=== PATIENT | male | born 1990 | race Caucasian/White ===

== ENCOUNTER 2018-03-26 18:12 | Inpatient (IN) | payer BC ==
[2018-03-26] MEDS ORDERED: ALTEPLASE (CATHFLO) 2 MG INJ CATHETER (19:00)
[2018-03-26] MEDS ORDERED: INSULIN REGULAR 10 ML INJ IV (19:02)
[2018-03-26] MEDS: ONDANSETRON 4 MG INJ IV ×2 (19:07→21:57)
[2018-03-26] MEDS: SODIUM CHLORIDE 0.9% 1L BAG IV* (19:08)
[2018-03-26] MEDS: HYDROmorphONE 1 MG/5 ML IV SYRINGE IV ×2 (19:08→21:57)
[2018-03-26] MEDS: PIPER-TAZO 3.375 GM IV (PMX) 100 ML IVPB (19:08)
[2018-03-26] MEDS: DIPHENHYDRAMINE 50 MG INJ IV (19:23)
[2018-03-26 19:25] LABS: ADD MAN DIFF? NO
[2018-03-26 19:26] LABS: WHITE BLOOD COUNT 13.1 10^3/ul (4.8-10.8)
[2018-03-26 19:26] LABS: BASOPHIL # 0.1 10^3/ul (0.0-0.1); BASOPHILS % 0.5 % (0.0-2.0); EOSINOPHILS % 0.2 % (0.0-7.0); HEMATOCRIT 40.9 % (42.0-52.0); HEMOGLOBIN 14.3 g/dl (14.0-18.0); LYMPHOCYTES # 2.7 10^3/ul (0.8-2.9); LYMPHOCYTES % 20.8 % (15.0-51.0); MEAN CORPUSCULAR HEMOGLOBIN 31.2 pg (29.0-33.0); MEAN CORPUSCULAR VOLUME 89.1 fl (82.0-101.0); MEAN PLATELET VOLUME 10.1 fl (7.4-10.4); MONOCYTE # 1.3 10^3/ul (0.3-0.9); MONOCYTES % 9.9 % (0.0-11.0); NEUTROPHILS % 68.4 % (39.0-77.0); PLATELET COUNT 473 10^3/UL (140-415); RED BLOOD COUNT 4.59 10^6/ul (4.70-6.10); RED CELL DISTRIBUTION WIDTH 15.6 % (11.5-14.5)
[2018-03-26 19:38] LABS: ALANINE AMINOTRANSFERASE 24 IU/L (13-69); ALBUMIN 5.3 g/dl (3.3-4.9); ALKALINE PHOSPHATASE 445 IU/L (42-121); AMYLASE 215 U/L (11-123); ASPARTATE AMINO TRANSFERASE 53 IU/L (15-46); BILIRUBIN,INDIRECT 0.1 mg/dl (0-1.1); BILIRUBIN,TOTAL 0.1 mg/dl (0.2-1.3); BLOOD UREA NITROGEN 95 mg/dl (7-20); CALCIUM 9.9 mg/dl (8.4-10.2); CHLORIDE 69 mmol/L (97-110); CREATININE 3.42 mg/dl (0.61-1.24); GLUCOSE 119 mg/dl (70-220); LIPASE 99 U/L (23-300); POTASSIUM 3.1 mmol/L (3.5-5.1); SODIUM 145 mmol/L (135-144)
[2018-03-26 19:44] LABS: INR 0.93; PROTIME 12.5 Sec (11.9-14.9)
[2018-03-26 19:49] LABS: ANION GAP 33 (8-16)
[2018-03-26 19:50] LABS: TOTAL PROTEIN 11.9 g/dl (6.1-8.1)
[2018-03-26 19:51] LABS: LACTIC ACID 2.6 mmol/L (0.5-2.0)
[2018-03-26 19:51] LABS: CARBON DIOXIDE 46 mmol/L (21-31)
[2018-03-26 19:53] LABS: TROPONIN-I < 0.012 ng/ml (0.000-0.120)
[2018-03-26] MEDS: SOD CHLORIDE 0.9% 1,000 ML IV ×2 (21:05→23:26)
[2018-03-26 22:10] LABS: LACTIC ACID 1.4 mmol/L (0.5-2.0)
[2018-03-26 22:10] LABS: ALANINE AMINOTRANSFERASE 16 IU/L (13-69); ALBUMIN 3.8 g/dl (3.3-4.9); ALBUMIN/GLOBULIN RATIO 0.95; ALKALINE PHOSPHATASE 315 IU/L (42-121); ANION GAP 20 (8-16); ASPARTATE AMINO TRANSFERASE 32 IU/L (15-46); BILIRUBIN,INDIRECT 0.1 mg/dl (0-1.1); BILIRUBIN,TOTAL 0.1 mg/dl (0.2-1.3); BLOOD UREA NITROGEN 77 mg/dl (7-20); CALCIUM 7.6 mg/dl (8.4-10.2); CARBON DIOXIDE 39 mmol/L (21-31); CHLORIDE 89 mmol/L (97-110); CREATININE 2.73 mg/dl (0.61-1.24); GLUCOSE 76 mg/dl (70-220); SODIUM 145 mmol/L (135-144); TOTAL PROTEIN 7.8 g/dl (6.1-8.1)
[2018-03-26 22:19] LABS: POTASSIUM 2.7 mmol/L (3.5-5.1)
[2018-03-26] MEDS ORDERED: POTASSIUM CHLORIDE (SR) 20 MEQ TAB PO (22:19)
[2018-03-26] MEDS: POTASSIUM PHOSPHATE 20 MEQ in SOD CHLORIDE 0.9% 250 ML IVPB (23:50)
[2018-03-27 00:20] LABS: ADD UMIC YES; UR ASCORBIC ACID NEGATIVE (NEGATIVE); UR BILIRUBIN (Dip) NEGATIVE (NEGATIVE); UR BLOOD (Dip) 2+ mg/dL (NEGATIVE); UR CLARITY SLIGHTLY CLOUDY (CLEAR); UR COLOR YELLOW (YELLOW); UR GLUCOSE (Dip) NEGATIVE (NEGATIVE); UR HYALINE CAST FEW /HPF (NONE SEEN); UR KETONES (Dip) NEGATIVE (NEGATIVE); UR LEUKOCYTE ESTERASE (Dip) NEGATIVE Leu/ul (NEGATIVE); UR MUCUS FEW /HPF (NONE SEEN); UR NITRITE (Dip) NEGATIVE (NEGATIVE); UR RBC 4 /HPF (0-5); UR SPECIFIC GRAVITY (Dip) 1.019 (1.003-1.030); UR TOTAL PROTEIN (Dip) NEGATIVE (NEGATIVE); UR UROBILINOGEN (Dip) NEGATIVE (NEGATIVE); UR WBC 2 /HPF (0-5)
[2018-03-27] MEDS ORDERED: NACL 0.9% 3 ML SYG IV (00:30)
[2018-03-27] MEDS ORDERED: ACETAMINOPHEN 325 MG TAB PO (00:30)
[2018-03-27] MEDS ORDERED: ALBUTEROL/IPRATROPIUM (NEB) 3 ML AMP HHN (00:30)
[2018-03-27] MEDS: SOD CHLORIDE 0.9% 500 ML IV (00:30)
[2018-03-27 00:54] LABS: LACTIC ACID 1.1 mmol/L (0.5-2.0)
[2018-03-27] MEDS: DIPHENHYDRAMINE 50 MG INJ IV ×5 (03:12→23:19)
[2018-03-27] MEDS: HYDROmorphONE 1 MG/5 ML IV SYRINGE IV (03:12)
[2018-03-27] MEDS: DEXTROSE 5%-0.45% NACL 1,000 ML IV ×2 (03:43→14:31)
[2018-03-27 04:09] LABS: ANION GAP 13 (8-16); BLOOD UREA NITROGEN 62 mg/dl (7-20); CALCIUM 7.2 mg/dl (8.4-10.2); CARBON DIOXIDE 38 mmol/L (21-31); CHLORIDE 101 mmol/L (97-110); CREATININE 2.04 mg/dl (0.61-1.24); GLUCOSE 90 mg/dl (70-220); POTASSIUM 3.1 mmol/L (3.5-5.1); SODIUM 149 mmol/L (135-144)
[2018-03-27 06:00] LABS: ABNORMAL IP MESSAGE 1; ADD MAN DIFF? NO; BASOPHILS % 0.2 % (0.0-2.0); EOSINOPHILS % 0.1 % (0.0-7.0); HEMATOCRIT 25.9 % (42.0-52.0); HEMOGLOBIN 8.7 g/dl (14.0-18.0); LYMPHOCYTES # 0.4 10^3/ul (0.8-2.9); LYMPHOCYTES % 2.4 % (15.0-51.0); MEAN CORPUSCULAR HEMOGLOBIN 31.8 pg (29.0-33.0); MEAN CORPUSCULAR HGB CONC 33.6 g/dl (32.0-37.0); MEAN CORPUSCULAR VOLUME 94.5 fl (82.0-101.0); MEAN PLATELET VOLUME 10.4 fl (7.4-10.4); MONOCYTE # 1.1 10^3/ul (0.3-0.9); NEUTROPHIL # 14.5 10^3/ul (1.6-7.5); NEUTROPHILS % 89.9 % (39.0-77.0); PLATELET COUNT 294 10^3/UL (140-415); POSITIVE DIFF @See below; RED BLOOD COUNT 2.74 10^6/ul (4.70-6.10); RED CELL DISTRIBUTION WIDTH 16.3 % (11.5-14.5)
[2018-03-27 06:00] LABS: WHITE BLOOD COUNT 16.1 10^3/ul (4.8-10.8)
[2018-03-27 06:34] LABS: ALANINE AMINOTRANSFERASE 23 IU/L (13-69); ALBUMIN 2.9 g/dl (3.3-4.9); ALBUMIN/GLOBULIN RATIO 0.96; ALKALINE PHOSPHATASE 226 IU/L (42-121); ANION GAP 14 (8-16); ASPARTATE AMINO TRANSFERASE 29 IU/L (15-46); BILIRUBIN,INDIRECT 0.1 mg/dl (0-1.1); BILIRUBIN,TOTAL 0.1 mg/dl (0.2-1.3); BLOOD UREA NITROGEN 57 mg/dl (7-20); CALCIUM 6.9 mg/dl (8.4-10.2); CARBON DIOXIDE 33 mmol/L (21-31); CHLORIDE 98 mmol/L (97-110); SODIUM 142 mmol/L (135-144); TOTAL PROTEIN 5.9 g/dl (6.1-8.1)
[2018-03-27 06:59] LABS: POTASSIUM 2.8 mmol/L (3.5-5.1)
[2018-03-27 07:01] LABS: GLUCOSE 420 mg/dl (70-220)
[2018-03-27] MEDS: HYDROmorphONE 0.5 MG/0.5 ML SYG IV ×6 (07:20→23:19)
[2018-03-27 08:18] LABS: GLUCOSE 420 mg/dl (70-220)
[2018-03-27] MEDS ORDERED: TPN 1,000 ML IV (08:44)
[2018-03-27] MEDS: POTASSIUM CHLORIDE 100 ML IVPB ×3 (09:00→12:25)
[2018-03-27] MEDS: ACCU-CHEK XX ×4 (09:00→21:33)
[2018-03-27] MEDS: FAMOTIDINE 20 MG INJ IV (09:21)
[2018-03-27] MEDS: CEFTRIAXONE 1 GM/50 ML (PMX) 50 ML IVPB (09:21)
[2018-03-27] MEDS: HEPARIN 5,000 UNIT/0.5 ML VIAL SC ×2 (09:48→21:00)
[2018-03-27 10:19] LABS: ALANINE AMINOTRANSFERASE 13 IU/L (13-69); ALBUMIN 3.5 g/dl (3.3-4.9); ALBUMIN/GLOBULIN RATIO 0.97; ALKALINE PHOSPHATASE 249 IU/L (42-121); ANION GAP 18 (8-16); ASPARTATE AMINO TRANSFERASE 35 IU/L (15-46); BILIRUBIN,INDIRECT 0.3 mg/dl (0-1.1); BILIRUBIN,TOTAL 0.3 mg/dl (0.2-1.3); BLOOD UREA NITROGEN 60 mg/dl (7-20); CALCIUM 8.1 mg/dl (8.4-10.2); CARBON DIOXIDE 31 mmol/L (21-31); CHLORIDE 100 mmol/L (97-110); CREATININE 1.71 mg/dl (0.61-1.24); GLUCOSE 101 mg/dl (70-220); MAGNESIUM 2.1 mg/dl (1.7-2.5); PHOSPHORUS 5.1 mg/dl (2.5-4.9); POTASSIUM 3.6 mmol/L (3.5-5.1); SODIUM 145 mmol/L (135-144); TOTAL PROTEIN 7.1 g/dl (6.1-8.1); TRIGLYCERIDES 172 mg/dl (0-149)
[2018-03-27 10:26] LABS: PREALBUMIN 31.5 mg/dl (17.6-36.0)
[2018-03-27 17:18] LABS: ADD UMIC YES; UR ASCORBIC ACID 20 mg/dL (NEGATIVE); UR BILIRUBIN (Dip) NEGATIVE (NEGATIVE); UR BLOOD (Dip) 1+ mg/dL (NEGATIVE); UR CLARITY CLEAR (CLEAR); UR COLOR YELLOW (YELLOW); UR GLUCOSE (Dip) NEGATIVE (NEGATIVE); UR KETONES (Dip) NEGATIVE (NEGATIVE); UR LEUKOCYTE ESTERASE (Dip) TRACE Leu/ul (NEGATIVE); UR NITRITE (Dip) NEGATIVE (NEGATIVE); UR RBC 7 /HPF (0-5); UR SPECIFIC GRAVITY (Dip) 1.019 (1.003-1.030); UR TOTAL PROTEIN (Dip) NEGATIVE (NEGATIVE); UR UROBILINOGEN (Dip) NEGATIVE (NEGATIVE); UR WBC 13 /HPF (0-5)
[2018-03-27] MEDS: TPN 1,000 ML IV (17:33)
[2018-03-27 17:35] LABS: SODIUM,URINE RANDOM 64 mmol/L (30-90)
[2018-03-27 17:35] LABS: POTASSIUM,URINE RANDOM 47.7 mmol/L (25-125)
[2018-03-27 17:39] LABS: CREATININE,URINE RANDOM 114.36 mg/dl (20-370)
[2018-03-28] MEDS: ACCU-CHEK XX ×5 (01:00→18:00)
[2018-03-28] MEDS: DIPHENHYDRAMINE 50 MG INJ IV ×7 (02:23→21:14)
[2018-03-28] MEDS: HYDROmorphONE 0.5 MG/0.5 ML SYG IV ×7 (02:32→21:14)
[2018-03-28] MEDS: FLUCONAZOLE 400 MG/NS (PMX) 200 ML IVPB (02:45)
[2018-03-28 06:00] LABS: ADD MAN DIFF? NO
[2018-03-28 06:07] LABS: WHITE BLOOD COUNT 15.1 10^3/ul (4.8-10.8)
[2018-03-28 06:08] LABS: BASOPHILS % 0.3 % (0.0-2.0); EOSINOPHILS # 0.2 10^3/ul (0.0-0.5); EOSINOPHILS % 1.5 % (0.0-7.0); HEMATOCRIT 25.2 % (42.0-52.0); HEMOGLOBIN 8.4 g/dl (14.0-18.0); LYMPHOCYTES # 1.5 10^3/ul (0.8-2.9); LYMPHOCYTES % 9.7 % (15.0-51.0); MEAN CORPUSCULAR HEMOGLOBIN 31.7 pg (29.0-33.0); MEAN CORPUSCULAR HGB CONC 33.3 g/dl (32.0-37.0); MEAN CORPUSCULAR VOLUME 95.1 fl (82.0-101.0); MEAN PLATELET VOLUME 10.4 fl (7.4-10.4); MONOCYTE # 1.1 10^3/ul (0.3-0.9); MONOCYTES % 7.2 % (0.0-11.0); NEUTROPHIL # 12.2 10^3/ul (1.6-7.5); NEUTROPHILS % 80.9 % (39.0-77.0); PLATELET COUNT 272 10^3/UL (140-415); RED BLOOD COUNT 2.65 10^6/ul (4.70-6.10); RED CELL DISTRIBUTION WIDTH 16.6 % (11.5-14.5)
[2018-03-28 07:52] LABS: ANION GAP 12 (8-16); BLOOD UREA NITROGEN 39 mg/dl (7-20); CALCIUM 8.5 mg/dl (8.4-10.2); CARBON DIOXIDE 34 mmol/L (21-31); CHLORIDE 99 mmol/L (97-110); CREATININE 1.23 mg/dl (0.61-1.24); GLUCOSE 84 mg/dl (70-220); MAGNESIUM 2.2 mg/dl (1.7-2.5); PHOSPHORUS 2.6 mg/dl (2.5-4.9); POTASSIUM 3.1 mmol/L (3.5-5.1); SODIUM 142 mmol/L (135-144)
[2018-03-28] MEDS: FAMOTIDINE 20 MG INJ IV (08:44)
[2018-03-28] MEDS: CEFTRIAXONE 1 GM/50 ML (PMX) 50 ML IVPB (08:44)
[2018-03-28] MEDS: HEPARIN 5,000 UNIT/0.5 ML VIAL SC ×2 (08:45→21:00)
[2018-03-28] MEDS: FAT EMULSION 20% 250 ML IV (11:42)
[2018-03-28] MEDS: CASPOFUNGIN 70 MG in SOD CHLORIDE 0.9% 250 ML IVPB (11:44)
[2018-03-28] MEDS: TPN 1,000 ML IV (11:56)
[2018-03-28] MEDS: POTASSIUM CHLORIDE 100 ML IVPB ×2 (12:59→18:15)
[2018-03-28] MEDS: DEXTROSE 10% 1,000 ML IV (16:00)
[2018-03-28] MEDS: DEXTROSE 10% 250 ML IV ×2 (22:10→22:59)
[2018-03-29] MEDS: HYDROmorphONE 0.5 MG/0.5 ML SYG IV ×7 (00:24→23:43)
[2018-03-29] MEDS: ACCU-CHEK XX ×4 (00:24→17:34)
[2018-03-29] MEDS: DIPHENHYDRAMINE 50 MG INJ IV ×6 (00:24→23:43)
[2018-03-29] MEDS: DEXTROSE 10% 250 ML IV ×4 (03:15→10:40)
[2018-03-29 05:49] LABS: ADD MAN DIFF? NO
[2018-03-29 05:55] LABS: WHITE BLOOD COUNT 9.3 10^3/ul (4.8-10.8)
[2018-03-29 05:55] LABS: BASOPHILS % 0.4 % (0.0-2.0); EOSINOPHILS # 0.3 10^3/ul (0.0-0.5); EOSINOPHILS % 3.5 % (0.0-7.0); HEMATOCRIT 32.2 % (42.0-52.0); HEMOGLOBIN 10.8 g/dl (14.0-18.0); LYMPHOCYTES # 1.4 10^3/ul (0.8-2.9); LYMPHOCYTES % 15.1 % (15.0-51.0); MEAN CORPUSCULAR HEMOGLOBIN 31.6 pg (29.0-33.0); MEAN CORPUSCULAR HGB CONC 33.5 g/dl (32.0-37.0); MEAN CORPUSCULAR VOLUME 94.2 fl (82.0-101.0); MEAN PLATELET VOLUME 10.5 fl (7.4-10.4); MONOCYTES % 11.2 % (0.0-11.0); NEUTROPHIL # 6.4 10^3/ul (1.6-7.5); NEUTROPHILS % 69.5 % (39.0-77.0); PLATELET COUNT 313 10^3/UL (140-415); RED BLOOD COUNT 3.42 10^6/ul (4.70-6.10); RED CELL DISTRIBUTION WIDTH 16.1 % (11.5-14.5)
[2018-03-29 06:14] LABS: ALANINE AMINOTRANSFERASE 21 IU/L (13-69); ALBUMIN 4.1 g/dl (3.3-4.9); ALBUMIN/GLOBULIN RATIO 0.91; ALKALINE PHOSPHATASE 292 IU/L (42-121); ASPARTATE AMINO TRANSFERASE 37 IU/L (15-46); BILIRUBIN,INDIRECT 0.1 mg/dl (0-1.1); BILIRUBIN,TOTAL 0.1 mg/dl (0.2-1.3); BLOOD UREA NITROGEN 35 mg/dl (7-20); CALCIUM 9.8 mg/dl (8.4-10.2); CHLORIDE 95 mmol/L (97-110); CREATININE 1.39 mg/dl (0.61-1.24); GLUCOSE 111 mg/dl (70-220); SODIUM 147 mmol/L (135-144); TOTAL PROTEIN 8.6 g/dl (6.1-8.1)
[2018-03-29 06:17] LABS: ANION GAP 17 (8-16); BLOOD UREA NITROGEN 36 mg/dl (7-20); CALCIUM 9.7 mg/dl (8.4-10.2); CARBON DIOXIDE 38 mmol/L (21-31); CHLORIDE 95 mmol/L (97-110); CREATININE 1.32 mg/dl (0.61-1.24); GLUCOSE 111 mg/dl (70-220); MAGNESIUM 2.1 mg/dl (1.7-2.5); PHOSPHORUS 3.1 mg/dl (2.5-4.9); POTASSIUM 3.1 mmol/L (3.5-5.1); SODIUM 147 mmol/L (135-144)
[2018-03-29 06:20] LABS: ANION GAP 16 (8-16)
[2018-03-29 06:21] LABS: CARBON DIOXIDE 39 mmol/L (21-31)
[2018-03-29 06:23] LABS: POTASSIUM 2.9 mmol/L (3.5-5.1)
[2018-03-29] MEDS: POTASSIUM CHLORIDE 100 ML IVPB ×4 (08:10→22:17)
[2018-03-29] MEDS: CEFTRIAXONE 1 GM/50 ML (PMX) 50 ML IVPB (08:58)
[2018-03-29] MEDS: FAMOTIDINE 20 MG INJ IV (08:58)
[2018-03-29] MEDS: HEPARIN 5,000 UNIT/0.5 ML VIAL SC ×2 (09:20→20:58)
[2018-03-29 09:37] LABS: MAGNESIUM 2.2 mg/dl (1.7-2.5)
[2018-03-29] MEDS ORDERED: CASPOFUNGIN 50 MG in SOD CHLORIDE 0.9% 250 ML IVPB (11:00)
[2018-03-29] MEDS ORDERED: NYSTATIN 30 GM POWDER BTL TOP (12:00)
[2018-03-29] MEDS: FLUCONAZOLE 400 MG/NS (PMX) 200 ML IVPB (12:34)
[2018-03-29] MEDS: TPN 1,000 ML IV (12:51)
[2018-03-29] MEDS: NYSTATIN 15 GM POWDER BTL TOP ×2 (12:59→20:57)
[2018-03-29] MEDS ORDERED: FENTAnyl PATCH 12 MCG/HR TRANSDERM (14:00)
[2018-03-29 15:04] LABS: ANION GAP 17 (8-16); BLOOD UREA NITROGEN 37 mg/dl (7-20); CALCIUM 9.7 mg/dl (8.4-10.2); CARBON DIOXIDE 39 mmol/L (21-31); CHLORIDE 93 mmol/L (97-110); CREATININE 1.48 mg/dl (0.61-1.24); GLUCOSE 108 mg/dl (70-220); POTASSIUM 3.1 mmol/L (3.5-5.1); SODIUM 146 mmol/L (135-144)
[2018-03-29] MEDS ORDERED: POTASSIUM CHLORIDE 100 ML IVPB (17:30)
[2018-03-30] MEDS: ACETAMINOPHEN 1000MG/100ML IV 100 ML IVPB (03:46)
[2018-03-30] MEDS: TPN 1,000 ML IV ×2 (05:29→15:42)
[2018-03-30 05:46] LABS: ADD MAN DIFF? NO
[2018-03-30 05:49] LABS: ABNORMAL IP MESSAGE 1; BASOPHILS % 0.2 % (0.0-2.0); EOSINOPHILS % 0.1 % (0.0-7.0); HEMOGLOBIN 11.8 g/dl (14.0-18.0); LYMPHOCYTES # 1.1 10^3/ul (0.8-2.9); LYMPHOCYTES % 5.7 % (15.0-51.0); MEAN CORPUSCULAR HEMOGLOBIN 31.7 pg (29.0-33.0); MEAN CORPUSCULAR HGB CONC 34.7 g/dl (32.0-37.0); MEAN CORPUSCULAR VOLUME 91.4 fl (82.0-101.0); MEAN PLATELET VOLUME 10.9 fl (7.4-10.4); MONOCYTE # 1.9 10^3/ul (0.3-0.9); MONOCYTES % 9.5 % (0.0-11.0); NEUTROPHIL # 16.7 10^3/ul (1.6-7.5); PLATELET COUNT 361 10^3/UL (140-415); POSITIVE DIFF @See below; RED BLOOD COUNT 3.72 10^6/ul (4.70-6.10)
[2018-03-30 05:49] LABS: WHITE BLOOD COUNT 19.9 10^3/ul (4.8-10.8)
[2018-03-30] MEDS: HYDROmorphONE 0.5 MG/0.5 ML SYG IV ×4 (05:51→21:10)
[2018-03-30 06:16] LABS: PHOSPHORUS 2.3 mg/dl (2.5-4.9)
[2018-03-30 06:16] LABS: MAGNESIUM 1.9 mg/dl (1.7-2.5)
[2018-03-30 06:28] LABS: ALANINE AMINOTRANSFERASE 21 IU/L (13-69); ALBUMIN 4.7 g/dl (3.3-4.9); ALBUMIN/GLOBULIN RATIO 0.94; ALKALINE PHOSPHATASE 419 IU/L (42-121); ANION GAP 22 (8-16); ASPARTATE AMINO TRANSFERASE 50 IU/L (15-46); BILIRUBIN,INDIRECT 0.2 mg/dl (0-1.1); BILIRUBIN,TOTAL 0.2 mg/dl (0.2-1.3); BLOOD UREA NITROGEN 47 mg/dl (7-20); CALCIUM 10.4 mg/dl (8.4-10.2); CARBON DIOXIDE 35 mmol/L (21-31); CHLORIDE 89 mmol/L (97-110); GLUCOSE 152 mg/dl (70-220); POTASSIUM 3.7 mmol/L (3.5-5.1); SODIUM 142 mmol/L (135-144); TOTAL PROTEIN 9.7 g/dl (6.1-8.1)
[2018-03-30] MEDS: DIPHENHYDRAMINE 50 MG INJ IV ×2 (07:47→18:37)
[2018-03-30] MEDS: HEPARIN 5,000 UNIT/0.5 ML VIAL SC ×3 (09:00→20:06)
[2018-03-30] MEDS: ACCU-CHEK XX ×2 (09:00→20:55)
[2018-03-30] MEDS: CEFTRIAXONE 1 GM/50 ML (PMX) 50 ML IVPB (09:03)
[2018-03-30] MEDS: FLUCONAZOLE 400 MG/NS (PMX) 200 ML IVPB (09:04)
[2018-03-30] MEDS: SOD CHLORIDE 0.9% 1,000 ML IV ×3 (09:11→21:53)
[2018-03-30] MEDS: NYSTATIN 15 GM POWDER BTL TOP ×2 (09:27→20:55)
[2018-03-30] MEDS: POTASSIUM PHOSPHATE 15 MM in SOD CHLORIDE 0.9% 250 ML IV (15:28)
[2018-03-30] MEDS: MEROPENEM 1 GM/50ML(PMX) 50 ML IVPB (20:55)
[2018-03-31] MEDS: HYDROmorphONE 0.5 MG/0.5 ML SYG IV ×6 (01:19→21:57)
[2018-03-31] MEDS: DIPHENHYDRAMINE 50 MG INJ IV ×2 (02:33→17:53)
[2018-03-31] MEDS: SOD CHLORIDE 0.9% 1,000 ML IV ×3 (05:00→16:51)
[2018-03-31 05:59] LABS: ADD MAN DIFF? NO
[2018-03-31 06:05] LABS: ABNORMAL IP MESSAGE 1; BASOPHILS % 0.1 % (0.0-2.0); EOSINOPHILS # 0.1 10^3/ul (0.0-0.5); EOSINOPHILS % 0.5 % (0.0-7.0); HEMATOCRIT 31.9 % (42.0-52.0); HEMOGLOBIN 10.8 g/dl (14.0-18.0); LYMPHOCYTES # 1.8 10^3/ul (0.8-2.9); MEAN CORPUSCULAR HEMOGLOBIN 31.5 pg (29.0-33.0); MEAN CORPUSCULAR HGB CONC 33.9 g/dl (32.0-37.0); MEAN PLATELET VOLUME 11.1 fl (7.4-10.4); MONOCYTE # 1.9 10^3/ul (0.3-0.9); MONOCYTES % 12.3 % (0.0-11.0); NEUTROPHIL # 11.4 10^3/ul (1.6-7.5); NEUTROPHILS % 74.7 % (39.0-77.0); PLATELET COUNT 363 10^3/UL (140-415); POSITIVE DIFF @See below; RED BLOOD COUNT 3.43 10^6/ul (4.70-6.10); RED CELL DISTRIBUTION WIDTH 16.5 % (11.5-14.5)
[2018-03-31 06:05] LABS: WHITE BLOOD COUNT 15.3 10^3/ul (4.8-10.8)
[2018-03-31 06:23] LABS: ALANINE AMINOTRANSFERASE 16 IU/L (13-69); ALBUMIN 4.1 g/dl (3.3-4.9); ALBUMIN/GLOBULIN RATIO 0.91; ALKALINE PHOSPHATASE 324 IU/L (42-121); ASPARTATE AMINO TRANSFERASE 31 IU/L (15-46); BILIRUBIN,INDIRECT 0.2 mg/dl (0-1.1); BILIRUBIN,TOTAL 0.2 mg/dl (0.2-1.3); BLOOD UREA NITROGEN 63 mg/dl (7-20); CHLORIDE 89 mmol/L (97-110); CREATININE 1.83 mg/dl (0.61-1.24); GLUCOSE 124 mg/dl (70-220); POTASSIUM 3.3 mmol/L (3.5-5.1); SODIUM 148 mmol/L (135-144); TOTAL PROTEIN 8.6 g/dl (6.1-8.1)
[2018-03-31 06:30] LABS: PHOSPHORUS 4.8 mg/dl (2.5-4.9)
[2018-03-31 06:30] LABS: MAGNESIUM 1.8 mg/dl (1.7-2.5)
[2018-03-31 06:33] LABS: ANION GAP 19 (8-16)
[2018-03-31 06:35] LABS: CARBON DIOXIDE 43 mmol/L (21-31)
[2018-03-31] MEDS ORDERED: PROPOFOL 200 MG INJ (07:00)
[2018-03-31] MEDS: HEPARIN 5,000 UNIT/0.5 ML VIAL SC ×2 (08:42→20:52)
[2018-03-31] MEDS: ACCU-CHEK XX ×2 (08:42→20:59)
[2018-03-31] MEDS: MEROPENEM 1 GM/50ML(PMX) 50 ML IVPB ×2 (08:42→23:11)
[2018-03-31] MEDS: FLUCONAZOLE 400 MG/NS (PMX) 200 ML IVPB (08:42)
[2018-03-31] MEDS: NYSTATIN 15 GM POWDER BTL TOP ×2 (08:42→21:00)
[2018-03-31] MEDS: POTASSIUM CHLORIDE 100 ML IVPB ×3 (10:00→20:56)
[2018-03-31 10:35] LABS: Allen Test ACCEPTAB; Arterial Base Excess 17.7 mmol/L (-3.0-3); Arterial Blood Gas Oxygen Sat 87.6 mmHG (95.0-98.0); Arterial COHb 0.3 % (0.0-3.0); Arterial Fraction of Oxyhgb 87.1 % (93.0-99.0); Arterial MetHb 0.3 % (0.0-1.5); Arterial Total Hemglobin 11.9 g/dl (12.0-18.0); Arterial pCO2 47.5 mmhg (35-45); MODE ROOM AIR; Site LB
[2018-03-31] MEDS: TPN 1,000 ML IV (10:58)
[2018-03-31] MEDS ORDERED: POTASSIUM CHLORIDE 100 ML IVPB (11:00)
[2018-03-31] MEDS: LIDOCAINE 1% (MDV) 10 ML INJ (14:55)
[2018-03-31] MEDS: HEPARIN 1000 UNITS/ML 10 ML INJ (14:55)
[2018-03-31] MEDS ORDERED: ONDANSETRON 4 MG INJ IV (17:30)
[2018-04-01] MEDS: POTASSIUM CHLORIDE 100 ML IVPB (00:13)
[2018-04-01] MEDS: DIPHENHYDRAMINE 50 MG INJ IV ×4 (00:13→18:26)
[2018-04-01] MEDS: HYDROmorphONE 0.5 MG/0.5 ML SYG IV ×6 (02:04→22:20)
[2018-04-01] MEDS: SOD CHLORIDE 0.9% 1,000 ML IV ×2 (02:51→06:09)
[2018-04-01] MEDS: TPN 1,000 ML IV ×3 (06:10→23:20)
[2018-04-01 06:12] LABS: ADD MAN DIFF? NO
[2018-04-01 06:15] LABS: WHITE BLOOD COUNT 11.7 10^3/ul (4.8-10.8)
[2018-04-01 06:15] LABS: ABNORMAL IP MESSAGE 1; BASOPHIL # 0.1 10^3/ul (0.0-0.1); BASOPHILS % 0.4 % (0.0-2.0); EOSINOPHILS % 0.3 % (0.0-7.0); HEMATOCRIT 33.7 % (42.0-52.0); HEMOGLOBIN 11.1 g/dl (14.0-18.0); LYMPHOCYTES # 2.6 10^3/ul (0.8-2.9); MEAN CORPUSCULAR HEMOGLOBIN 31.2 pg (29.0-33.0); MEAN CORPUSCULAR HGB CONC 32.9 g/dl (32.0-37.0); MEAN CORPUSCULAR VOLUME 94.7 fl (82.0-101.0); MEAN PLATELET VOLUME 11.4 fl (7.4-10.4); MONOCYTE # 1.8 10^3/ul (0.3-0.9); MONOCYTES % 15.5 % (0.0-11.0); NEUTROPHIL # 7.2 10^3/ul (1.6-7.5); NEUTROPHILS % 61.5 % (39.0-77.0); PLATELET COUNT 384 10^3/UL (140-415); POSITIVE DIFF @See below; RED BLOOD COUNT 3.56 10^6/ul (4.70-6.10); RED CELL DISTRIBUTION WIDTH 16.6 % (11.5-14.5)
[2018-04-01 06:52] LABS: BLOOD UREA NITROGEN 74 mg/dl (7-20); CALCIUM 9.3 mg/dl (8.4-10.2); CHLORIDE 84 mmol/L (97-110); CREATININE 2.11 mg/dl (0.61-1.24); GLUCOSE 133 mg/dl (70-220); MAGNESIUM 1.8 mg/dl (1.7-2.5); PHOSPHORUS 4.9 mg/dl (2.5-4.9); POTASSIUM 3.2 mmol/L (3.5-5.1); SODIUM 151 mmol/L (135-144)
[2018-04-01 06:53] LABS: CARBON DIOXIDE 52 mmol/L (21-31)
[2018-04-01 06:55] LABS: ANION GAP 18 (8-16)
[2018-04-01 08:22] LABS: ALANINE AMINOTRANSFERASE 13 IU/L (13-69); ALBUMIN 4.2 g/dl (3.3-4.9); ALKALINE PHOSPHATASE 352 IU/L (42-121); ASPARTATE AMINO TRANSFERASE 42 IU/L (15-46); BILIRUBIN,INDIRECT 0.2 mg/dl (0-1.1); BILIRUBIN,TOTAL 0.2 mg/dl (0.2-1.3)
[2018-04-01] MEDS: HEPARIN 5,000 UNIT/0.5 ML VIAL SC ×2 (09:00→21:00)
[2018-04-01] MEDS: POTASSIUM CHLORIDE 40 MEQ in DEXTROSE 5% 1,000 ML IV ×3 (09:29→20:27)
[2018-04-01] MEDS: FLUCONAZOLE 400 MG/NS (PMX) 200 ML IVPB (09:30)
[2018-04-01] MEDS: MEROPENEM 1 GM/50ML(PMX) 50 ML IVPB ×2 (09:30→22:29)
[2018-04-01] MEDS: NYSTATIN 15 GM POWDER BTL TOP ×2 (09:34→21:00)
[2018-04-01] MEDS: ACCU-CHEK XX ×2 (09:37→21:00)
[2018-04-01] MEDS: FAT EMULSION 20% 250 ML IV (10:08)
[2018-04-02] MEDS: DIPHENHYDRAMINE 50 MG INJ IV ×3 (00:16→15:15)
[2018-04-02] MEDS: POTASSIUM CHLORIDE 40 MEQ in DEXTROSE 5% 1,000 ML IV ×3 (00:20→17:52)
[2018-04-02] MEDS: HYDROmorphONE 0.5 MG/0.5 ML SYG IV ×5 (05:52→20:02)
[2018-04-02 06:29] LABS: ALANINE AMINOTRANSFERASE 22 IU/L (13-69); ALBUMIN 4.2 g/dl (3.3-4.9); ALBUMIN/GLOBULIN RATIO 0.93; ALKALINE PHOSPHATASE 369 IU/L (42-121); ASPARTATE AMINO TRANSFERASE 50 IU/L (15-46); BILIRUBIN,INDIRECT 0.1 mg/dl (0-1.1); BILIRUBIN,TOTAL 0.1 mg/dl (0.2-1.3); BLOOD UREA NITROGEN 79 mg/dl (7-20); CALCIUM 9.9 mg/dl (8.4-10.2); CHLORIDE 66 mmol/L (97-110); CREATININE 2.04 mg/dl (0.61-1.24); GLUCOSE 116 mg/dl (70-220); POTASSIUM 3.7 mmol/L (3.5-5.1); SODIUM 144 mmol/L (135-144); TOTAL PROTEIN 8.7 g/dl (6.1-8.1)
[2018-04-02 06:44] LABS: ANION GAP 20 (8-16)
[2018-04-02 06:47] LABS: CARBON DIOXIDE 62 mmol/L (21-31)
[2018-04-02 08:02] LABS: PHOSPHORUS 4.6 mg/dl (2.5-4.9); TRIGLYCERIDES 235 mg/dl (0-149)
[2018-04-02 08:02] LABS: MAGNESIUM 1.6 mg/dl (1.7-2.5)
[2018-04-02] MEDS: FLUCONAZOLE 400 MG/NS (PMX) 200 ML IVPB (08:54)
[2018-04-02] MEDS: HEPARIN 5,000 UNIT/0.5 ML VIAL SC ×2 (08:55→21:00)
[2018-04-02] MEDS: MEROPENEM 1 GM/50ML(PMX) 50 ML IVPB ×2 (08:55→21:02)
[2018-04-02] MEDS: NYSTATIN 15 GM POWDER BTL TOP ×2 (08:56→21:13)
[2018-04-02] MEDS: ACCU-CHEK XX ×2 (08:56→21:13)
[2018-04-02 11:58] LABS: AADO2 Arterial 36.1 mmHg (7.0-24.0); Allen Test ACCEPTAB; Arterial Base Excess 36.1 mmol/L (-3.0-3); Arterial Blood Gas Oxygen Sat 95.5 mmHG (95.0-98.0); Arterial COHb 0.3 % (0.0-3.0); Arterial Fraction of Oxyhgb 95.1 % (93.0-99.0); Arterial HCO3 64.2 mmol/L (22.0-26.0); Arterial MetHb 0.1 % (0.0-1.5); Arterial Total Hemglobin 13.1 g/dl (12.0-18.0); Arterial pCO2 69.2 mmhg (35-45); MODE NASAL CANNULA; Site Right Radial
[2018-04-02] MEDS: ACETAZOLAMIDE 500 MG INJ IV ×2 (13:00→21:01)
[2018-04-02] MEDS: TPN 1,000 ML IV (16:30)
[2018-04-03] MEDS: DIPHENHYDRAMINE 50 MG INJ IV ×3 (02:15→18:29)
[2018-04-03] MEDS: HYDROmorphONE 0.5 MG/0.5 ML SYG IV ×3 (02:18→10:15)
[2018-04-03] MEDS: POTASSIUM CHLORIDE 40 MEQ in DEXTROSE 5% 1,000 ML IV (02:19)
[2018-04-03 05:48] LABS: ADD MAN DIFF? NO
[2018-04-03 06:02] LABS: ABNORMAL IP MESSAGE 1; BASOPHIL # 0.1 10^3/ul (0.0-0.1); BASOPHILS % 0.6 % (0.0-2.0); EOSINOPHILS # 0.2 10^3/ul (0.0-0.5); EOSINOPHILS % 2.4 % (0.0-7.0); HEMOGLOBIN 12.5 g/dl (14.0-18.0); LYMPHOCYTES # 2.3 10^3/ul (0.8-2.9); LYMPHOCYTES % 26.2 % (15.0-51.0); MEAN CORPUSCULAR HEMOGLOBIN 30.9 pg (29.0-33.0); MEAN CORPUSCULAR HGB CONC 32.9 g/dl (32.0-37.0); MEAN CORPUSCULAR VOLUME 94.1 fl (82.0-101.0); MEAN PLATELET VOLUME 11.4 fl (7.4-10.4); MONOCYTE # 1.6 10^3/ul (0.3-0.9); MONOCYTES % 18.1 % (0.0-11.0); NEUTROPHIL # 4.6 10^3/ul (1.6-7.5); NEUTROPHILS % 52.1 % (39.0-77.0); PLATELET COUNT 433 10^3/UL (140-415); POSITIVE DIFF @See below; RED BLOOD COUNT 4.04 10^6/ul (4.70-6.10); RED CELL DISTRIBUTION WIDTH 15.8 % (11.5-14.5)
[2018-04-03 06:02] LABS: WHITE BLOOD COUNT 8.8 10^3/ul (4.8-10.8)
[2018-04-03 06:19] LABS: PHOSPHORUS 3.7 mg/dl (2.5-4.9)
[2018-04-03 06:25] LABS: PREALBUMIN 33.3 mg/dl (17.6-36.0)
[2018-04-03 06:29] LABS: ALANINE AMINOTRANSFERASE 24 IU/L (13-69); ALBUMIN 4.5 g/dl (3.3-4.9); ALBUMIN/GLOBULIN RATIO 0.91; ALKALINE PHOSPHATASE 437 IU/L (42-121); ASPARTATE AMINO TRANSFERASE 63 IU/L (15-46); BILIRUBIN,INDIRECT 0.1 mg/dl (0-1.1); BILIRUBIN,TOTAL 0.1 mg/dl (0.2-1.3); BLOOD UREA NITROGEN 79 mg/dl (7-20); CALCIUM 9.7 mg/dl (8.4-10.2); CHLORIDE 55 mmol/L (97-110); CREATININE 2.94 mg/dl (0.61-1.24); GLUCOSE 125 mg/dl (70-220); POTASSIUM 4.6 mmol/L (3.5-5.1); SODIUM 135 mmol/L (135-144); TOTAL PROTEIN 9.4 g/dl (6.1-8.1)
[2018-04-03 06:58] LABS: ANION GAP 22 (8-16)
[2018-04-03] MEDS: MEROPENEM 1 GM/50ML(PMX) 50 ML IVPB ×2 (08:41→20:53)
[2018-04-03] MEDS: HEPARIN 5,000 UNIT/0.5 ML VIAL SC ×2 (08:45→20:58)
[2018-04-03] MEDS: ACCU-CHEK XX ×2 (08:57→21:17)
[2018-04-03] MEDS: SOD CHLORIDE 0.9% 500 ML IV (09:03)
[2018-04-03] MEDS: SOD CHLORIDE 0.9% 1,000 ML IV ×3 (09:04→20:55)
[2018-04-03] MEDS: NYSTATIN 15 GM POWDER BTL TOP ×2 (09:05→21:17)
[2018-04-03] MEDS: TPN 1,000 ML IV (09:31)
[2018-04-03] MEDS: FLUCONAZOLE 400 MG/NS (PMX) 200 ML IVPB (10:22)
[2018-04-03] MEDS: HYDROmorphONE 2 MG/ML SYG IV ×2 (14:45→18:31)
[2018-04-03 15:02] LABS: BLOOD UREA NITROGEN 77 mg/dl (7-20); CALCIUM 9.2 mg/dl (8.4-10.2); CHLORIDE 64 mmol/L (97-110); CREATININE 2.68 mg/dl (0.61-1.24); GLUCOSE 304 mg/dl (70-220); SODIUM 130 mmol/L (135-144)
[2018-04-03 15:09] LABS: ANION GAP 15 (8-16)
[2018-04-03 15:13] LABS: CARBON DIOXIDE 57 mmol/L (21-31); POTASSIUM 6.2 mmol/L (3.5-5.1)
[2018-04-03 16:50] LABS: BLOOD UREA NITROGEN 76 mg/dl (7-20); CALCIUM 9.6 mg/dl (8.4-10.2); CHLORIDE 65 mmol/L (97-110); CREATININE 2.72 mg/dl (0.61-1.24); GLUCOSE 111 mg/dl (70-220); POTASSIUM 4.1 mmol/L (3.5-5.1); SODIUM 133 mmol/L (135-144)
[2018-04-03 17:27] LABS: ANION GAP 21 (8-16)
[2018-04-03 17:31] LABS: CARBON DIOXIDE 51 mmol/L (21-31)
[2018-04-03 19:13] LABS: ADD UMIC YES; UR ASCORBIC ACID NEGATIVE (NEGATIVE); UR BILIRUBIN (Dip) NEGATIVE (NEGATIVE); UR BLOOD (Dip) NEGATIVE (NEGATIVE); UR CLARITY CLEAR (CLEAR); UR COLOR YELLOW (YELLOW); UR GLUCOSE (Dip) NEGATIVE (NEGATIVE); UR KETONES (Dip) NEGATIVE (NEGATIVE); UR LEUKOCYTE ESTERASE (Dip) NEGATIVE Leu/ul (NEGATIVE); UR NITRITE (Dip) NEGATIVE (NEGATIVE); UR RBC 4 /HPF (0-5); UR TOTAL PROTEIN (Dip) 1+ mg/dl (NEGATIVE); UR UROBILINOGEN (Dip) NEGATIVE (NEGATIVE); UR WBC 0 /HPF (0-5)
[2018-04-03 19:39] LABS: SODIUM,URINE RANDOM 42 mmol/L (30-90)
[2018-04-03 19:39] LABS: CREATININE,URINE RANDOM 41.45 mg/dl (20-370)
[2018-04-03] MEDS: ONDANSETRON 4 MG INJ IV (20:53)
[2018-04-04] MEDS: SOD CHLORIDE 0.9% 1,000 ML IV ×4 (01:00→17:00)
[2018-04-04] MEDS: DIPHENHYDRAMINE 50 MG INJ IV ×4 (01:35→19:03)
[2018-04-04] MEDS: TPN 1,000 ML IV ×2 (01:35→18:00)
[2018-04-04] MEDS: HYDROmorphONE 2 MG/ML SYG IV ×5 (01:36→19:04)
[2018-04-04 05:49] LABS: ADD MAN DIFF? NO
[2018-04-04 05:56] LABS: BASOPHIL # 0.1 10^3/ul (0.0-0.1); BASOPHILS % 0.6 % (0.0-2.0); EOSINOPHILS # 0.5 10^3/ul (0.0-0.5); EOSINOPHILS % 5.7 % (0.0-7.0); HEMATOCRIT 33.7 % (42.0-52.0); HEMOGLOBIN 11.2 g/dl (14.0-18.0); LYMPHOCYTES # 2.3 10^3/ul (0.8-2.9); MEAN CORPUSCULAR HEMOGLOBIN 31.2 pg (29.0-33.0); MEAN CORPUSCULAR HGB CONC 33.2 g/dl (32.0-37.0); MEAN CORPUSCULAR VOLUME 93.9 fl (82.0-101.0); MEAN PLATELET VOLUME 11.2 fl (7.4-10.4); MONOCYTE # 1.1 10^3/ul (0.3-0.9); MONOCYTES % 14.2 % (0.0-11.0); PLATELET COUNT 500 10^3/UL (140-415); RED BLOOD COUNT 3.59 10^6/ul (4.70-6.10); RED CELL DISTRIBUTION WIDTH 15.9 % (11.5-14.5)
[2018-04-04 06:22] LABS: ALANINE AMINOTRANSFERASE 31 IU/L (13-69); ALBUMIN/GLOBULIN RATIO 0.88; ALKALINE PHOSPHATASE 429 IU/L (42-121); ASPARTATE AMINO TRANSFERASE 65 IU/L (15-46); BILIRUBIN,INDIRECT 0.1 mg/dl (0-1.1); BILIRUBIN,TOTAL 0.1 mg/dl (0.2-1.3); BLOOD UREA NITROGEN 79 mg/dl (7-20); CALCIUM 9.7 mg/dl (8.4-10.2); CHLORIDE 70 mmol/L (97-110); CREATININE 2.43 mg/dl (0.61-1.24); GLUCOSE 136 mg/dl (70-220); POTASSIUM 3.3 mmol/L (3.5-5.1); SODIUM 139 mmol/L (135-144); TOTAL PROTEIN 8.5 g/dl (6.1-8.1)
[2018-04-04 06:35] LABS: ANION GAP 15 (8-16); CARBON DIOXIDE 57 mmol/L (21-31)
[2018-04-04 07:30] LABS: PHOSPHORUS 4.9 mg/dl (2.5-4.9)
[2018-04-04 07:30] LABS: MAGNESIUM 2.3 mg/dl (1.7-2.5)
[2018-04-04] MEDS: HEPARIN 5,000 UNIT/0.5 ML VIAL SC ×2 (08:52→21:00)
[2018-04-04] MEDS: MEROPENEM 1 GM/50ML(PMX) 50 ML IVPB ×2 (08:52→21:26)
[2018-04-04] MEDS: NYSTATIN 15 GM POWDER BTL TOP ×2 (08:54→21:27)
[2018-04-04] MEDS: ACCU-CHEK XX ×2 (08:57→21:00)
[2018-04-04] MEDS: FAT EMULSION 20% 250 ML IV ×2 (09:00→15:15)
[2018-04-04] MEDS: FLUCONAZOLE 400 MG/NS (PMX) 200 ML IVPB (09:04)
[2018-04-04] MEDS: POTASSIUM CHLORIDE 100 ML IVPB ×2 (10:47→12:55)
[2018-04-04 15:11] LABS: CREATININE, RANDOM URINE 48 mg/dL (20-370); MICROALBUMIN 3.7 mg/dL; MICROALBUMIN/CREATININE RATIO 77 (<30)
[2018-04-04 15:17] LABS: BLOOD UREA NITROGEN 75 mg/dl (7-20); CALCIUM 10.2 mg/dl (8.4-10.2); CHLORIDE 73 mmol/L (97-110); GLUCOSE 117 mg/dl (70-220); POTASSIUM 3.3 mmol/L (3.5-5.1); SODIUM 142 mmol/L (135-144)
[2018-04-04 15:25] LABS: ANION GAP 15 (8-16)
[2018-04-04 15:27] LABS: CARBON DIOXIDE 57 mmol/L (21-31)
[2018-04-04] MEDS ORDERED: POTASSIUM CHLORIDE 50 ML IVPB (16:00)
[2018-04-04] MEDS: ONDANSETRON 4 MG INJ IV (18:12)
[2018-04-04] MEDS: HYDROmorphONE 1 MG/ML SYG IV (23:09)
[2018-04-05] MEDS: DIPHENHYDRAMINE 50 MG INJ IV ×4 (00:53→20:04)
[2018-04-05] MEDS: TPN 1,000 ML IV ×2 (00:54→18:09)
[2018-04-05] MEDS: SOD CHLORIDE 0.9% 1,000 ML IV ×5 (00:54→20:09)
[2018-04-05] MEDS: HYDROmorphONE 1 MG/ML SYG IV ×5 (03:16→20:04)
[2018-04-05 06:09] LABS: ADD MAN DIFF? NO
[2018-04-05 06:15] LABS: ABNORMAL IP MESSAGE 1; BASOPHIL # 0.1 10^3/ul (0.0-0.1); BASOPHILS % 0.7 % (0.0-2.0); EOSINOPHILS # 0.4 10^3/ul (0.0-0.5); EOSINOPHILS % 4.8 % (0.0-7.0); HEMATOCRIT 37.2 % (42.0-52.0); HEMOGLOBIN 12.2 g/dl (14.0-18.0); LYMPHOCYTES # 2.6 10^3/ul (0.8-2.9); LYMPHOCYTES % 30.1 % (15.0-51.0); MEAN CORPUSCULAR HEMOGLOBIN 31.1 pg (29.0-33.0); MEAN CORPUSCULAR HGB CONC 32.8 g/dl (32.0-37.0); MEAN CORPUSCULAR VOLUME 94.9 fl (82.0-101.0); MONOCYTE # 1.9 10^3/ul (0.3-0.9); MONOCYTES % 21.3 % (0.0-11.0); NEUTROPHIL # 3.7 10^3/ul (1.6-7.5); NEUTROPHILS % 42.8 % (39.0-77.0); PLATELET COUNT 560 10^3/UL (140-415); POSITIVE DIFF @See below; RED BLOOD COUNT 3.92 10^6/ul (4.70-6.10); RED CELL DISTRIBUTION WIDTH 16.2 % (11.5-14.5)
[2018-04-05 06:15] LABS: WHITE BLOOD COUNT 8.7 10^3/ul (4.8-10.8)
[2018-04-05 06:40] LABS: BLOOD UREA NITROGEN 83 mg/dl (7-20); CHLORIDE 67 mmol/L (97-110); GLUCOSE 143 mg/dl (70-220); MAGNESIUM 2.8 mg/dl (1.7-2.5); PHOSPHORUS 5.5 mg/dl (2.5-4.9); SODIUM 147 mmol/L (135-144)
[2018-04-05 07:04] LABS: ANION GAP 16 (8-16)
[2018-04-05 07:06] LABS: CARBON DIOXIDE 67 mmol/L (21-31); POTASSIUM 2.9 mmol/L (3.5-5.1)
[2018-04-05] MEDS: HEPARIN 5,000 UNIT/0.5 ML VIAL SC ×2 (09:00→20:10)
[2018-04-05] MEDS: ACCU-CHEK XX ×2 (09:44→21:00)
[2018-04-05] MEDS: MEROPENEM 1 GM/50ML(PMX) 50 ML IVPB ×2 (09:52→20:10)
[2018-04-05] MEDS: POTASSIUM CHLORIDE 100 ML IVPB ×2 (09:57→11:52)
[2018-04-05] MEDS: NYSTATIN 15 GM POWDER BTL TOP ×2 (10:14→20:11)
[2018-04-05] MEDS: FLUCONAZOLE 400 MG/NS (PMX) 200 ML IVPB (10:59)
[2018-04-05 16:27] LABS: CHLORIDE, RANDOM URINE <20 mmol/L (32-290)
[2018-04-05 16:33] LABS: BLOOD UREA NITROGEN 75 mg/dl (7-20); CALCIUM 9.8 mg/dl (8.4-10.2); CHLORIDE 78 mmol/L (97-110); CREATININE 2.23 mg/dl (0.61-1.24); GLUCOSE 128 mg/dl (70-220); POTASSIUM 3.2 mmol/L (3.5-5.1); SODIUM 147 mmol/L (135-144)
[2018-04-05 16:35] LABS: ANION GAP 32 (8-16)
[2018-04-05 16:44] LABS: CARBON DIOXIDE 54 mmol/L (21-31)
[2018-04-05] MEDS: PANTOPRAZOLE 40 MG INJ IV (18:08)
[2018-04-06] MEDS: HYDROmorphONE 1 MG/ML SYG IV ×6 (00:01→21:49)
[2018-04-06] MEDS: SOD CHLORIDE 0.9% 1,000 ML IV ×4 (01:52→17:45)
[2018-04-06] MEDS: DIPHENHYDRAMINE 50 MG INJ IV ×4 (02:00→21:49)
[2018-04-06] MEDS: TPN 1,000 ML IV ×2 (03:20→11:21)
[2018-04-06] MEDS: PANTOPRAZOLE 40 MG INJ IV ×2 (05:37→17:52)
[2018-04-06 06:40] LABS: ADD MAN DIFF? NO
[2018-04-06 06:43] LABS: WHITE BLOOD COUNT 6.1 10^3/ul (4.8-10.8)
[2018-04-06 06:43] LABS: BASOPHIL # 0.1 10^3/ul (0.0-0.1); BASOPHILS % 0.8 % (0.0-2.0); EOSINOPHILS # 0.3 10^3/ul (0.0-0.5); EOSINOPHILS % 5.3 % (0.0-7.0); HEMATOCRIT 28.3 % (42.0-52.0); LYMPHOCYTES # 2.4 10^3/ul (0.8-2.9); LYMPHOCYTES % 39.5 % (15.0-51.0); MEAN CORPUSCULAR HEMOGLOBIN 31.3 pg (29.0-33.0); MEAN CORPUSCULAR HGB CONC 31.8 g/dl (32.0-37.0); MEAN CORPUSCULAR VOLUME 98.3 fl (82.0-101.0); MONOCYTE # 1.2 10^3/ul (0.3-0.9); MONOCYTES % 20.4 % (0.0-11.0); NEUTROPHILS % 33.7 % (39.0-77.0); PLATELET COUNT 430 10^3/UL (140-415); RED BLOOD COUNT 2.88 10^6/ul (4.70-6.10); RED CELL DISTRIBUTION WIDTH 16.6 % (11.5-14.5)
[2018-04-06 07:05] LABS: BLOOD UREA NITROGEN 61 mg/dl (7-20); CALCIUM 9.3 mg/dl (8.4-10.2); CHLORIDE 94 mmol/L (97-110); GLUCOSE 111 mg/dl (70-220); PHOSPHORUS 2.7 mg/dl (2.5-4.9); POTASSIUM 3.4 mmol/L (3.5-5.1); SODIUM 146 mmol/L (135-144)
[2018-04-06 07:20] LABS: ANION GAP 9 (8-16)
[2018-04-06 07:23] LABS: CARBON DIOXIDE 46 mmol/L (21-31)
[2018-04-06] MEDS: FLUCONAZOLE 400 MG/NS (PMX) 200 ML IVPB (08:46)
[2018-04-06] MEDS: POTASSIUM CHLORIDE 100 ML IVPB ×2 (08:46→11:21)
[2018-04-06] MEDS: HEPARIN 5,000 UNIT/0.5 ML VIAL SC ×2 (08:46→21:00)
[2018-04-06] MEDS: NYSTATIN 15 GM POWDER BTL TOP ×2 (08:51→21:49)
[2018-04-06] MEDS: ACCU-CHEK XX ×2 (09:08→21:00)
[2018-04-06] MEDS ORDERED: POTASSIUM CHLORIDE 100 ML IVPB ×3 (09:30→10:30)
[2018-04-06 14:38] LABS: ANION GAP 7 (8-16); BLOOD UREA NITROGEN 52 mg/dl (7-20); CALCIUM 9.3 mg/dl (8.4-10.2); CHLORIDE 102 mmol/L (97-110); CREATININE 1.41 mg/dl (0.61-1.24); GLUCOSE 95 mg/dl (70-220); POTASSIUM 4.5 mmol/L (3.5-5.1); SODIUM 144 mmol/L (135-144)
[2018-04-06 14:46] LABS: CARBON DIOXIDE 40 mmol/L (21-31)
[2018-04-07] MEDS: SOD CHLORIDE 0.9% 1,000 ML IV ×4 (00:48→21:10)
[2018-04-07] MEDS: HYDROmorphONE 1 MG/ML SYG IV ×6 (01:48→21:57)
[2018-04-07] MEDS: TPN 1,000 ML IV ×2 (03:57→16:52)
[2018-04-07] MEDS: PANTOPRAZOLE 40 MG INJ IV ×2 (05:23→17:56)
[2018-04-07] MEDS: DIPHENHYDRAMINE 50 MG INJ IV ×3 (06:09→21:57)
[2018-04-07 06:13] LABS: ANION GAP 9 (8-16); BLOOD UREA NITROGEN 36 mg/dl (7-20); CALCIUM 9.4 mg/dl (8.4-10.2); CARBON DIOXIDE 28 mmol/L (21-31); CHLORIDE 113 mmol/L (97-110); CREATININE 1.02 mg/dl (0.61-1.24); GLUCOSE 84 mg/dl (70-220); MAGNESIUM 1.4 mg/dl (1.7-2.5); PHOSPHORUS 1.9 mg/dl (2.5-4.9); POTASSIUM 4.2 mmol/L (3.5-5.1); SODIUM 146 mmol/L (135-144)
[2018-04-07] MEDS: HEPARIN 5,000 UNIT/0.5 ML VIAL SC ×2 (08:45→21:00)
[2018-04-07] MEDS: FLUCONAZOLE 400 MG/NS (PMX) 200 ML IVPB (08:45)
[2018-04-07] MEDS: NYSTATIN 15 GM POWDER BTL TOP ×2 (08:46→21:09)
[2018-04-07] MEDS: ACCU-CHEK XX ×2 (09:36→21:00)
[2018-04-07] MEDS: MAGNESIUM SULFATE 2 GM/50 ML 50 ML IVPB (10:53)
[2018-04-07] MEDS: POTASSIUM PHOSPHATE 20 MEQ in SOD CHLORIDE 0.9% 250 ML IVPB (13:29)
[2018-04-08] MEDS: HYDROmorphONE 1 MG/ML SYG IV ×6 (02:03→22:10)
[2018-04-08] MEDS: DIPHENHYDRAMINE 50 MG INJ IV ×4 (03:53→22:10)
[2018-04-08] MEDS: PANTOPRAZOLE 40 MG INJ IV ×2 (05:33→18:17)
[2018-04-08] MEDS: SOD CHLORIDE 0.9% 1,000 ML IV ×4 (05:33→21:12)
[2018-04-08 06:29] LABS: ADD MAN DIFF? NO
[2018-04-08 06:40] LABS: BASOPHILS % 0.3 % (0.0-2.0); EOSINOPHILS # 0.3 10^3/ul (0.0-0.5); HEMATOCRIT 24.7 % (42.0-52.0); HEMOGLOBIN 7.8 g/dl (14.0-18.0); LYMPHOCYTES % 21.9 % (15.0-51.0); MEAN CORPUSCULAR HEMOGLOBIN 31.3 pg (29.0-33.0); MEAN CORPUSCULAR HGB CONC 31.6 g/dl (32.0-37.0); MEAN CORPUSCULAR VOLUME 99.2 fl (82.0-101.0); MONOCYTE # 0.7 10^3/ul (0.3-0.9); MONOCYTES % 7.5 % (0.0-11.0); NEUTROPHIL # 6.2 10^3/ul (1.6-7.5); PLATELET COUNT 371 10^3/UL (140-415); RED BLOOD COUNT 2.49 10^6/ul (4.70-6.10); RED CELL DISTRIBUTION WIDTH 16.3 % (11.5-14.5)
[2018-04-08 06:40] LABS: WHITE BLOOD COUNT 9.2 10^3/ul (4.8-10.8)
[2018-04-08 07:21] LABS: ANION GAP 9 (8-16); BLOOD UREA NITROGEN 26 mg/dl (7-20); CALCIUM 9.2 mg/dl (8.4-10.2); CARBON DIOXIDE 19 mmol/L (21-31); CHLORIDE 116 mmol/L (97-110); GLUCOSE 97 mg/dl (70-220); PHOSPHORUS 2.8 mg/dl (2.5-4.9); POTASSIUM 4.4 mmol/L (3.5-5.1); SODIUM 140 mmol/L (135-144)
[2018-04-08] MEDS: TPN 1,000 ML IV ×3 (07:48→22:00)
[2018-04-08 07:56] LABS: MAGNESIUM 1.7 mg/dl (1.7-2.5)
[2018-04-08] MEDS: NYSTATIN 15 GM POWDER BTL TOP ×3 (09:00→21:11)
[2018-04-08] MEDS: HEPARIN 5,000 UNIT/0.5 ML VIAL SC ×2 (09:00→21:00)
[2018-04-08] MEDS: ACCU-CHEK XX ×2 (09:00→21:00)
[2018-04-08] MEDS: FLUCONAZOLE 400 MG/NS (PMX) 200 ML IVPB (09:59)
[2018-04-08] MEDS: FAT EMULSION 20% 250 ML IV (11:08)
[2018-04-09] MEDS: HYDROmorphONE 1 MG/ML SYG IV ×6 (02:08→22:23)
[2018-04-09] MEDS: TPN 1,000 ML IV ×2 (02:47→19:26)
[2018-04-09] MEDS: DIPHENHYDRAMINE 50 MG INJ IV ×4 (04:06→22:22)
[2018-04-09] MEDS: SOD CHLORIDE 0.9% 1,000 ML IV ×3 (05:06→18:21)
[2018-04-09] MEDS: PANTOPRAZOLE 40 MG INJ IV ×2 (05:06→18:20)
[2018-04-09 06:25] LABS: TRIGLYCERIDES 170 mg/dl (0-149)
[2018-04-09 06:32] LABS: ANION GAP 10 (8-16)
[2018-04-09 06:38] LABS: BLOOD UREA NITROGEN 21 mg/dl (7-20); CALCIUM 9.2 mg/dl (8.4-10.2); CARBON DIOXIDE 15 mmol/L (21-31); CHLORIDE 119 mmol/L (97-110); GLUCOSE 82 mg/dl (70-220); MAGNESIUM 1.5 mg/dl (1.7-2.5); PHOSPHORUS 3.2 mg/dl (2.5-4.9); POTASSIUM 4.5 mmol/L (3.5-5.1); SODIUM 139 mmol/L (135-144)
[2018-04-09] MEDS: HEPARIN 5,000 UNIT/0.5 ML VIAL SC ×2 (09:00→21:00)
[2018-04-09] MEDS: FLUCONAZOLE 400 MG/NS (PMX) 200 ML IVPB (09:08)
[2018-04-09] MEDS: ACCU-CHEK XX ×2 (09:09→21:00)
[2018-04-09] MEDS: NYSTATIN 15 GM POWDER BTL TOP ×2 (09:09→22:28)
[2018-04-09] MEDS: MAGNESIUM SULFATE 4 GM/100 ML 100 ML IVPB (12:15)
[2018-04-10] MEDS: SOD CHLORIDE 0.9% 1,000 ML IV ×3 (00:44→08:45)
[2018-04-10] MEDS: HYDROmorphONE 1 MG/ML SYG IV ×6 (02:23→22:32)
[2018-04-10] MEDS: DIPHENHYDRAMINE 50 MG INJ IV ×4 (04:25→22:31)
[2018-04-10] MEDS: PANTOPRAZOLE 40 MG INJ IV ×2 (05:32→18:34)
[2018-04-10 06:24] LABS: ADD MAN DIFF? NO
[2018-04-10 06:35] LABS: BASOPHILS % 0.6 % (0.0-2.0); EOSINOPHILS # 0.2 10^3/ul (0.0-0.5); EOSINOPHILS % 3.2 % (0.0-7.0); HEMATOCRIT 25.7 % (42.0-52.0); HEMOGLOBIN 8.4 g/dl (14.0-18.0); LYMPHOCYTES # 1.4 10^3/ul (0.8-2.9); LYMPHOCYTES % 22.8 % (15.0-51.0); MEAN CORPUSCULAR HEMOGLOBIN 31.6 pg (29.0-33.0); MEAN CORPUSCULAR HGB CONC 32.7 g/dl (32.0-37.0); MEAN CORPUSCULAR VOLUME 96.6 fl (82.0-101.0); MEAN PLATELET VOLUME 11.3 fl (7.4-10.4); MONOCYTE # 0.7 10^3/ul (0.3-0.9); MONOCYTES % 11.8 % (0.0-11.0); NEUTROPHIL # 3.9 10^3/ul (1.6-7.5); NEUTROPHILS % 61.3 % (39.0-77.0); PLATELET COUNT 378 10^3/UL (140-415); RED BLOOD COUNT 2.66 10^6/ul (4.70-6.10)
[2018-04-10 06:35] LABS: WHITE BLOOD COUNT 6.3 10^3/ul (4.8-10.8)
[2018-04-10 06:57] LABS: ANION GAP 13 (8-16); CARBON DIOXIDE 16 mmol/L (21-31); CHLORIDE 115 mmol/L (97-110); POTASSIUM 3.9 mmol/L (3.5-5.1); SODIUM 140 mmol/L (135-144)
[2018-04-10 06:58] LABS: BLOOD UREA NITROGEN 20 mg/dl (7-20); CALCIUM 8.9 mg/dl (8.4-10.2); GLUCOSE 87 mg/dl (70-220); MAGNESIUM 2.2 mg/dl (1.7-2.5); PHOSPHORUS 3.3 mg/dl (2.5-4.9)
[2018-04-10 08:02] LABS: PREALBUMIN 27.8 mg/dl (17.6-36.0)
[2018-04-10] MEDS: FLUCONAZOLE 400 MG/NS (PMX) 200 ML IVPB (08:44)
[2018-04-10] MEDS: NYSTATIN 15 GM POWDER BTL TOP ×2 (08:51→20:29)
[2018-04-10] MEDS: HEPARIN 5,000 UNIT/0.5 ML VIAL SC ×2 (08:51→20:29)
[2018-04-10] MEDS: ACCU-CHEK XX ×2 (08:52→20:30)
[2018-04-10] MEDS: TPN 1,000 ML IV (11:56)
[2018-04-11] MEDS: TPN 1,000 ML IV ×3 (04:10→21:04)
[2018-04-11] MEDS: DIPHENHYDRAMINE 50 MG INJ IV ×4 (04:15→22:38)
[2018-04-11] MEDS: PANTOPRAZOLE 40 MG INJ IV ×2 (06:01→18:43)
[2018-04-11 06:18] LABS: ADD MAN DIFF? NO
[2018-04-11] MEDS: HYDROmorphONE 1 MG/ML SYG IV ×5 (06:24→22:38)
[2018-04-11 06:27] LABS: WHITE BLOOD COUNT 6.9 10^3/ul (4.8-10.8)
[2018-04-11 06:27] LABS: BASOPHIL # 0.1 10^3/ul (0.0-0.1); BASOPHILS % 0.7 % (0.0-2.0); EOSINOPHILS # 0.2 10^3/ul (0.0-0.5); EOSINOPHILS % 3.2 % (0.0-7.0); HEMATOCRIT 26.3 % (42.0-52.0); HEMOGLOBIN 8.8 g/dl (14.0-18.0); LYMPHOCYTES # 2.2 10^3/ul (0.8-2.9); LYMPHOCYTES % 32.2 % (15.0-51.0); MEAN CORPUSCULAR HEMOGLOBIN 31.9 pg (29.0-33.0); MEAN CORPUSCULAR HGB CONC 33.5 g/dl (32.0-37.0); MEAN CORPUSCULAR VOLUME 95.3 fl (82.0-101.0); MONOCYTE # 0.8 10^3/ul (0.3-0.9); MONOCYTES % 10.9 % (0.0-11.0); NEUTROPHIL # 3.6 10^3/ul (1.6-7.5); NEUTROPHILS % 52.7 % (39.0-77.0); PLATELET COUNT 446 10^3/UL (140-415); RED BLOOD COUNT 2.76 10^6/ul (4.70-6.10); RED CELL DISTRIBUTION WIDTH 16.2 % (11.5-14.5)
[2018-04-11 06:54] LABS: ANION GAP 13 (8-16); BLOOD UREA NITROGEN 27 mg/dl (7-20); CALCIUM 9.5 mg/dl (8.4-10.2); CARBON DIOXIDE 21 mmol/L (21-31); CHLORIDE 111 mmol/L (97-110); GLUCOSE 92 mg/dl (70-220); MAGNESIUM 1.8 mg/dl (1.7-2.5); PHOSPHORUS 3.6 mg/dl (2.5-4.9); POTASSIUM 4.2 mmol/L (3.5-5.1); SODIUM 141 mmol/L (135-144)
[2018-04-11] MEDS: HEPARIN 5,000 UNIT/0.5 ML VIAL SC ×2 (09:00→21:00)
[2018-04-11] MEDS: ACCU-CHEK XX ×2 (09:00→21:00)
[2018-04-11] MEDS: FLUCONAZOLE 400 MG/NS (PMX) 200 ML IVPB (09:18)
[2018-04-11] MEDS: NYSTATIN 15 GM POWDER BTL TOP ×2 (09:19→21:03)
[2018-04-11] MEDS: FAT EMULSION 20% 250 ML IV (10:38)
[2018-04-11] MEDS: SOD CHLORIDE 0.9% 1,000 ML IV (14:44)
[2018-04-12] MEDS: HYDROmorphONE 1 MG/ML SYG IV ×6 (02:39→22:46)
[2018-04-12] MEDS: SOD CHLORIDE 0.9% 1,000 ML IV ×4 (02:42→22:43)
[2018-04-12] MEDS: ONDANSETRON 4 MG INJ IV (03:50)
[2018-04-12] MEDS: DIPHENHYDRAMINE 50 MG INJ IV ×4 (04:56→22:46)
[2018-04-12] MEDS: PANTOPRAZOLE 40 MG INJ IV ×2 (05:45→17:05)
[2018-04-12 06:04] LABS: ADD MAN DIFF? NO
[2018-04-12 06:08] LABS: WHITE BLOOD COUNT 6.2 10^3/ul (4.8-10.8)
[2018-04-12 06:08] LABS: BASOPHILS % 0.5 % (0.0-2.0); EOSINOPHILS # 0.2 10^3/ul (0.0-0.5); EOSINOPHILS % 2.7 % (0.0-7.0); HEMATOCRIT 25.8 % (42.0-52.0); HEMOGLOBIN 8.6 g/dl (14.0-18.0); LYMPHOCYTES % 31.4 % (15.0-51.0); MEAN CORPUSCULAR HEMOGLOBIN 31.7 pg (29.0-33.0); MEAN CORPUSCULAR HGB CONC 33.3 g/dl (32.0-37.0); MEAN CORPUSCULAR VOLUME 95.2 fl (82.0-101.0); MEAN PLATELET VOLUME 10.7 fl (7.4-10.4); MONOCYTE # 0.8 10^3/ul (0.3-0.9); MONOCYTES % 13.4 % (0.0-11.0); NEUTROPHIL # 3.2 10^3/ul (1.6-7.5); NEUTROPHILS % 51.8 % (39.0-77.0); PLATELET COUNT 452 10^3/UL (140-415); RED BLOOD COUNT 2.71 10^6/ul (4.70-6.10); RED CELL DISTRIBUTION WIDTH 16.2 % (11.5-14.5)
[2018-04-12 06:40] LABS: ANION GAP 15 (8-16); BLOOD UREA NITROGEN 37 mg/dl (7-20); CALCIUM 9.5 mg/dl (8.4-10.2); CARBON DIOXIDE 21 mmol/L (21-31); CHLORIDE 108 mmol/L (97-110); CREATININE 1.21 mg/dl (0.61-1.24); GLUCOSE 97 mg/dl (70-220); MAGNESIUM 1.8 mg/dl (1.7-2.5); PHOSPHORUS 3.9 mg/dl (2.5-4.9); POTASSIUM 4.6 mmol/L (3.5-5.1); SODIUM 139 mmol/L (135-144)
[2018-04-12] MEDS: ACCU-CHEK XX ×2 (09:00→21:00)
[2018-04-12] MEDS: HEPARIN 5,000 UNIT/0.5 ML VIAL SC ×2 (09:00→20:56)
[2018-04-12] MEDS: FLUCONAZOLE 400 MG/NS (PMX) 200 ML IVPB (09:07)
[2018-04-12] MEDS: NYSTATIN 15 GM POWDER BTL TOP ×2 (09:11→20:55)
[2018-04-12] MEDS: TPN 1,000 ML IV (13:56)
[2018-04-13] MEDS: TPN 1,000 ML IV ×3 (02:00→18:40)
[2018-04-13] MEDS: HYDROmorphONE 1 MG/ML SYG IV ×4 (02:58→14:58)
[2018-04-13] MEDS: DIPHENHYDRAMINE 50 MG INJ IV ×4 (04:44→17:52)
[2018-04-13] MEDS: PANTOPRAZOLE 40 MG INJ IV ×2 (05:26→17:53)
[2018-04-13 06:38] LABS: ANION GAP 15 (8-16); BLOOD UREA NITROGEN 35 mg/dl (7-20); CALCIUM 9.2 mg/dl (8.4-10.2); CARBON DIOXIDE 19 mmol/L (21-31); CHLORIDE 112 mmol/L (97-110); CREATININE 1.11 mg/dl (0.61-1.24); GLUCOSE 86 mg/dl (70-220); MAGNESIUM 1.8 mg/dl (1.7-2.5); PHOSPHORUS 4.1 mg/dl (2.5-4.9); POTASSIUM 4.6 mmol/L (3.5-5.1); SODIUM 141 mmol/L (135-144)
[2018-04-13] MEDS: SOD CHLORIDE 0.9% 1,000 ML IV ×3 (06:45→16:54)
[2018-04-13] MEDS: HEPARIN 5,000 UNIT/0.5 ML VIAL SC (09:00)
[2018-04-13] MEDS: ACCU-CHEK XX (09:00)
[2018-04-13] MEDS: NYSTATIN 15 GM POWDER BTL TOP (09:51)
== END 2018-04-13 19:10 | DRG 871 ==
LOC: ICU 23:44 → E/R 18:12 → MS2 03-27 17:45
PROVIDERS: Internal Medicine
PROC: 02PYX3Z Removal of Infusion Device from Great Vessel, External Approach (ICD-10-PCS; 2018-03-28)
PROC: 02HV33Z Insertion of Infusion Device into Superior Vena Cava, Percutaneous Approach (ICD-10-PCS; principal; 2018-03-31)
PROC: 0JH63XZ Insertion of Tunneled Vascular Access Device into Chest Subcutaneous Tissue and Fascia, Percutaneous Approach (ICD-10-PCS; 2018-03-31)
DX: B37.7 Candidal sepsis (principal); G92 Toxic encephalopathy; N17.0 Acute kidney failure with tubular necrosis; E87.1 Hypo-osmolality and hyponatremia; E87.3 Alkalosis; E46 Unspecified protein-calorie malnutrition; K91.2 Postsurgical malabsorption, not elsewhere classified; E87.0 Hyperosmolality and hypernatremia; N18.9 Chronic kidney disease, unspecified; R65.20 Severe sepsis without septic shock; E87.6 Hypokalemia; E87.8 Other disorders of electrolyte and fluid balance, not elsewhere classified; K94.29 Other complications of gastrostomy; Y83.2 Surgical operation with anastomosis, bypass or graft as the cause of abnormal reaction of the patient, or of later complication, without mention of misadventure at the time of the procedure; Y92.129 Unspecified place in nursing home as the place of occurrence of the external cause; G89.29 Other chronic pain; E87.5 Hyperkalemia; E83.9 Disorder of mineral metabolism, unspecified; E83.42 Hypomagnesemia; Z90.81 Acquired absence of spleen; Z90.49 Acquired absence of other specified parts of digestive tract; Z90.5 Acquired absence of kidney; Z68.20 Body mass index [BMI] 20.0-20.9, adult; E83.39 Other disorders of phosphorus metabolism
CPT/HCPCS: 36415; 36561; 36600; 71045; 74176; 76775; 76942; 80048; 80053; 80076; 81001; 81003; 82043; 82150; 82247; 82248; 82436; 82803; 82947; 82962; 83605; 83690; 83735; 84100; 84133; 84134; 84155; 84300; 84478; 84484; 85025; 85610; 85730; 87040; 87070; 87081; 87086; 93005; 96361; 96374; 96375; 96376; 97116; 97162; 97530; 99291-25; J1120

== ENCOUNTER 2018-04-16 13:46 | Inpatient (IN) | payer BC ==
[2018-04-16] MEDS: DIPHENHYDRAMINE 50 MG INJ IV ×2 (14:19→21:19)
[2018-04-16] MEDS: CEFTRIAXONE 1 GM/50 ML (PMX) 50 ML IVPB ×2 (14:19→21:22)
[2018-04-16] MEDS: HYDROmorphONE 1 MG/ML SYG IV ×3 (14:19→21:19)
[2018-04-16 14:20] LABS: ADD MAN DIFF? NO
[2018-04-16] MEDS: ONDANSETRON 4 MG INJ IV ×3 (14:20→21:23)
[2018-04-16] MEDS: SODIUM CHLORIDE 0.9% 1L BAG IV* (14:20)
[2018-04-16 14:21] LABS: WHITE BLOOD COUNT 8.6 10^3/ul (4.8-10.8)
[2018-04-16 14:21] LABS: BASOPHIL # 0.1 10^3/ul (0.0-0.1); BASOPHILS % 0.7 % (0.0-2.0); EOSINOPHILS % 0.3 % (0.0-7.0); HEMATOCRIT 29.3 % (42.0-52.0); HEMOGLOBIN 10.1 g/dl (14.0-18.0); LYMPHOCYTES # 2.1 10^3/ul (0.8-2.9); LYMPHOCYTES % 24.4 % (15.0-51.0); MEAN CORPUSCULAR HEMOGLOBIN 32.6 pg (29.0-33.0); MEAN CORPUSCULAR HGB CONC 34.5 g/dl (32.0-37.0); MEAN CORPUSCULAR VOLUME 94.5 fl (82.0-101.0); MEAN PLATELET VOLUME 10.2 fl (7.4-10.4); MONOCYTE # 1.3 10^3/ul (0.3-0.9); MONOCYTES % 14.6 % (0.0-11.0); NEUTROPHIL # 5.1 10^3/ul (1.6-7.5); NEUTROPHILS % 59.7 % (39.0-77.0); PLATELET COUNT 602 10^3/UL (140-415); RED CELL DISTRIBUTION WIDTH 16.8 % (11.5-14.5)
[2018-04-16 14:39] LABS: ALANINE AMINOTRANSFERASE 32 IU/L (13-69); ALBUMIN 4.5 g/dl (3.3-4.9); ALKALINE PHOSPHATASE 505 IU/L (42-121); AMYLASE 172 U/L (11-123); ANION GAP 17 (8-16); ASPARTATE AMINO TRANSFERASE 41 IU/L (15-46); BILIRUBIN,INDIRECT 0.1 mg/dl (0-1.1); BILIRUBIN,TOTAL 0.1 mg/dl (0.2-1.3); BLOOD UREA NITROGEN 44 mg/dl (7-20); CALCIUM 10.1 mg/dl (8.4-10.2); CARBON DIOXIDE 22 mmol/L (21-31); CHLORIDE 107 mmol/L (97-110); CREATININE 1.35 mg/dl (0.61-1.24); GLUCOSE 90 mg/dl (70-220); LIPASE 50 U/L (23-300); POTASSIUM 3.9 mmol/L (3.5-5.1); SODIUM 142 mmol/L (135-144)
[2018-04-16 14:46] LABS: INR 0.88; PT RATIO 0.9
[2018-04-16 14:47] LABS: PARTIAL THROMBOPLASTIN TIME 28.4 Sec (25.0-35.0)
[2018-04-16 14:51] LABS: TROPONIN-I < 0.012 ng/ml (0.000-0.120)
[2018-04-16 17:31] LABS: URINE BLOOD (Dip) POC Trace-intact (NEGATIVE); URINE GLUCOSE (Dip) POC Negative (NEGATIVE); URINE KETONES (Dip) POC Trace (NEGATIVE); URINE LEUKOCYTE EST (Dip) POC Negative (NEGATIVE); URINE NITRITE (Dip) POC Negative (NEGATIVE); URINE TOTAL PROTEIN POC 1+ (NEGATIVE)
[2018-04-16 17:42] LABS: LACTIC ACID 1.2 mmol/L (0.5-2.0)
[2018-04-16 18:02] LABS: ADD UMIC YES; UR ASCORBIC ACID NEGATIVE (NEGATIVE); UR BILIRUBIN (Dip) NEGATIVE (NEGATIVE); UR BLOOD (Dip) NEGATIVE (NEGATIVE); UR CLARITY SLIGHTLY CLOUDY (CLEAR); UR COLOR AMBER (YELLOW); UR GLUCOSE (Dip) NEGATIVE (NEGATIVE); UR KETONES (Dip) NEGATIVE (NEGATIVE); UR LEUKOCYTE ESTERASE (Dip) NEGATIVE Leu/ul (NEGATIVE); UR MUCUS FEW /HPF (NONE SEEN); UR NITRITE (Dip) NEGATIVE (NEGATIVE); UR RBC 4 /HPF (0-5); UR SPECIFIC GRAVITY (Dip) 1.027 (1.003-1.030); UR TOTAL PROTEIN (Dip) 1+ mg/dl (NEGATIVE); UR UROBILINOGEN (Dip) NEGATIVE (NEGATIVE); UR WBC 1 /HPF (0-5)
[2018-04-16] MEDS: SOD CHLORIDE 0.9% 1,000 ML IV ×2 (18:25→21:22)
[2018-04-16 20:37] LABS: LACTIC ACID 2.1 mmol/L (0.5-2.0)
[2018-04-16] MEDS ORDERED: morphine 2 MG INJ IV (21:30)
[2018-04-16] MEDS ORDERED: ONDANSETRON 4 MG INJ IV (21:30)
[2018-04-16] MEDS ORDERED: NACL 0.9% 3 ML SYG IV (21:30)
[2018-04-16] MEDS ORDERED: HYDROmorphONE 0.5 MG/0.5 ML SYG IV (22:00)
[2018-04-16] MEDS ORDERED: ALBUTEROL/IPRATROPIUM (NEB) 3 ML AMP HHN (22:30)
[2018-04-16] MEDS ORDERED: DIPHENHYDRAMINE 25 MG CAP PO (22:30)
[2018-04-16] MEDS: FLUCONAZOLE 400 MG/NS (PMX) 200 ML IVPB (22:40)
[2018-04-16 23:28] LABS: LACTIC ACID 1.1 mmol/L (0.5-2.0)
[2018-04-17] MEDS: LEVETIRACETAM 500 MG TAB PO ×2 (00:05→08:42)
[2018-04-17] MEDS: HYDROmorphONE 0.5 MG/0.5 ML SYG IV ×4 (00:51→21:44)
[2018-04-17] MEDS: DIPHENHYDRAMINE 50 MG INJ IV ×3 (02:15→18:29)
[2018-04-17 06:13] LABS: ADD MAN DIFF? NO
[2018-04-17 06:17] LABS: BASOPHIL # 0.1 10^3/ul (0.0-0.1); BASOPHILS % 1.1 % (0.0-2.0); EOSINOPHILS # 0.1 10^3/ul (0.0-0.5); EOSINOPHILS % 1.7 % (0.0-7.0); HEMATOCRIT 24.5 % (42.0-52.0); LYMPHOCYTES % 30.6 % (15.0-51.0); MEAN CORPUSCULAR HEMOGLOBIN 31.7 pg (29.0-33.0); MEAN CORPUSCULAR HGB CONC 32.7 g/dl (32.0-37.0); MEAN CORPUSCULAR VOLUME 97.2 fl (82.0-101.0); MEAN PLATELET VOLUME 10.1 fl (7.4-10.4); MONOCYTE # 0.9 10^3/ul (0.3-0.9); MONOCYTES % 13.3 % (0.0-11.0); NEUTROPHIL # 3.5 10^3/ul (1.6-7.5); PLATELET COUNT 495 10^3/UL (140-415); RED BLOOD COUNT 2.52 10^6/ul (4.70-6.10); RED CELL DISTRIBUTION WIDTH 17.1 % (11.5-14.5)
[2018-04-17 06:17] LABS: WHITE BLOOD COUNT 6.6 10^3/ul (4.8-10.8)
[2018-04-17 06:27] LABS: HEMOGLOBIN A1C 5.6 % (0-5.9)
[2018-04-17 06:50] LABS: ALANINE AMINOTRANSFERASE 23 IU/L (13-69); ALBUMIN 3.5 g/dl (3.3-4.9); ALBUMIN/GLOBULIN RATIO 0.97; ALKALINE PHOSPHATASE 388 IU/L (42-121); ANION GAP 12 (8-16); ASPARTATE AMINO TRANSFERASE 34 IU/L (15-46); BLOOD UREA NITROGEN 43 mg/dl (7-20); CALCIUM 8.9 mg/dl (8.4-10.2); CARBON DIOXIDE 25 mmol/L (21-31); CHLORIDE 111 mmol/L (97-110); CHOL/HDL RATIO 6.9 RATIO; CHOLESTEROL 153 mg/dl (100-200); CREATININE 1.29 mg/dl (0.61-1.24); GLUCOSE 83 mg/dl (70-220); HDL CHOLESTEROL 22 mg/dl (30-63); LDL CHOLESTEROL,CALCULATED 71 mg/dl; MAGNESIUM 1.9 mg/dl (1.7-2.5); POTASSIUM 3.4 mmol/L (3.5-5.1); SODIUM 145 mmol/L (135-144); TOTAL PROTEIN 7.1 g/dl (6.1-8.1); TRIGLYCERIDES 301 mg/dl (0-149)
[2018-04-17 07:12] LABS: THYROID STIMULATING HORMONE 0.355 MIU/L (0.465-4.680)
[2018-04-17] MEDS ORDERED: HYDROmorphONE 0.5 MG/0.5 ML SYG IV ×2 (07:30→10:00)
[2018-04-17] MEDS: PANTOPRAZOLE (EC) 40 MG TAB PO (08:42)
[2018-04-17] MEDS: SOD CHLORIDE 0.9% 1,000 ML IV ×2 (08:48→17:27)
[2018-04-17] MEDS ORDERED: FLUCONAZOLE 400 MG/NS (PMX) 200 ML IVPB (09:00)
[2018-04-17] MEDS ORDERED: TPN 1,000 ML IV (09:42)
[2018-04-17] MEDS ORDERED: DIPHENHYDRAMINE 50 MG INJ IV (10:00)
[2018-04-17] MEDS: ACCU-CHEK XX ×4 (10:21→20:31)
[2018-04-17 10:41] LABS: IRON 67 ug/dl (35-150)
[2018-04-17 10:50] LABS: % IRON SATURATION 22 % SAT (22-52); TOTAL IRON BINDING CAPACITY 299 ug/dl (241-421)
[2018-04-17 11:09] LABS: TRIGLYCERIDES 301 mg/dl (0-149)
[2018-04-17 11:16] LABS: PREALBUMIN 32.6 mg/dl (17.6-36.0)
[2018-04-17] MEDS: HYDROmorphONE 2 MG/ML SYG IV ×2 (12:12→15:33)
[2018-04-17] MEDS: LEVETIRACETAM 500 MG (PMX) 100 ML IVPB (20:31)
[2018-04-17] MEDS: TPN 1,000 ML IV (21:32)
[2018-04-17] MEDS: FAT EMULSION 20% 250 ML IV (21:33)
[2018-04-18] MEDS: DIPHENHYDRAMINE 50 MG INJ IV ×3 (00:37→12:29)
[2018-04-18] MEDS: HYDROmorphONE 0.5 MG/0.5 ML SYG IV ×5 (00:38→12:30)
[2018-04-18] MEDS: ACCU-CHEK XX ×4 (01:00→12:39)
[2018-04-18] MEDS: PANTOPRAZOLE 40 MG INJ IV (05:18)
[2018-04-18] MEDS: TPN 1,000 ML IV (07:29)
[2018-04-18 07:46] LABS: ADD MAN DIFF? NO
[2018-04-18 08:09] LABS: ANION GAP 11 (8-16); BLOOD UREA NITROGEN 48 mg/dl (7-20); CARBON DIOXIDE 29 mmol/L (21-31); CHLORIDE 105 mmol/L (97-110); CREATININE 1.18 mg/dl (0.61-1.24); GLUCOSE 93 mg/dl (70-220); MAGNESIUM 1.8 mg/dl (1.7-2.5); PHOSPHORUS 3.6 mg/dl (2.5-4.9); POTASSIUM 3.7 mmol/L (3.5-5.1); SODIUM 141 mmol/L (135-144)
[2018-04-18 08:12] LABS: WHITE BLOOD COUNT 5.1 10^3/ul (4.8-10.8)
[2018-04-18 08:12] LABS: BASOPHILS % 0.8 % (0.0-2.0); EOSINOPHILS # 0.2 10^3/ul (0.0-0.5); EOSINOPHILS % 3.5 % (0.0-7.0); HEMATOCRIT 24.4 % (42.0-52.0); HEMOGLOBIN 8.2 g/dl (14.0-18.0); LYMPHOCYTES # 1.6 10^3/ul (0.8-2.9); LYMPHOCYTES % 31.1 % (15.0-51.0); MEAN CORPUSCULAR HEMOGLOBIN 32.4 pg (29.0-33.0); MEAN CORPUSCULAR HGB CONC 33.6 g/dl (32.0-37.0); MEAN CORPUSCULAR VOLUME 96.4 fl (82.0-101.0); MEAN PLATELET VOLUME 11.1 fl (7.4-10.4); MONOCYTE # 0.8 10^3/ul (0.3-0.9); MONOCYTES % 15.2 % (0.0-11.0); NEUTROPHIL # 2.5 10^3/ul (1.6-7.5); NEUTROPHILS % 48.8 % (39.0-77.0); NUCLEATED RED BLOOD CELLS% 0.4 /100WBC (0.0-0.0); RED BLOOD COUNT 2.53 10^6/ul (4.70-6.10); RED CELL DISTRIBUTION WIDTH 17.2 % (11.5-14.5)
[2018-04-18 08:13] LABS: PLATELET COUNT 469 10^3/UL (140-415)
[2018-04-18 08:17] LABS: PREALBUMIN 36.1 mg/dl (17.6-36.0)
[2018-04-18] MEDS: LEVETIRACETAM 500 MG (PMX) 100 ML IVPB (08:26)
[2018-04-18 08:27] LABS: TRIGLYCERIDES 743 mg/dl (0-149)
== END 2018-04-18 13:45 | DRG 682 ==
LOC: TEL 20:59 → E/R 13:46
DX: N17.0 Acute kidney failure with tubular necrosis (principal); G92 Toxic encephalopathy; R57.1 Hypovolemic shock; K91.2 Postsurgical malabsorption, not elsewhere classified; E46 Unspecified protein-calorie malnutrition; Z68.1 Body mass index [BMI] 19.9 or less, adult; E87.0 Hyperosmolality and hypernatremia; E87.2 Acidosis; E86.0 Dehydration; E87.6 Hypokalemia; F17.210 Nicotine dependence, cigarettes, uncomplicated; Y83.8 Other surgical procedures as the cause of abnormal reaction of the patient, or of later complication, without mention of misadventure at the time of the procedure; Y92.019 Unspecified place in single-family (private) house as the place of occurrence of the external cause; Z90.49 Acquired absence of other specified parts of digestive tract; Z90.5 Acquired absence of kidney; Z90.81 Acquired absence of spleen; Z93.1 Gastrostomy status
CPT/HCPCS: 71045; 76705; 80048; 80053; 80061; 81001; 81003; 82150; 82728; 82962; 83036; 83540; 83605; 83690; 83735; 84100; 84134; 84443; 84478; 84484; 85025; 85610; 85730; 87040; 87086; 93005; 96374; 96375; 96376; 99291-25

== ENCOUNTER 2018-04-21 17:24 | Inpatient (IN) | payer BC ==
[2018-04-21 17:54] LABS: WHITE BLOOD COUNT 20.9 10^3/ul (4.8-10.8)
[2018-04-21 17:54] LABS: ABNORMAL IP MESSAGE 1; HEMATOCRIT 33.2 % (42.0-52.0); HEMOGLOBIN 11.5 g/dl (14.0-18.0); MEAN CORPUSCULAR HEMOGLOBIN 33.1 pg (29.0-33.0); MEAN CORPUSCULAR HGB CONC 34.6 g/dl (32.0-37.0); MEAN CORPUSCULAR VOLUME 95.7 fl (82.0-101.0); MEAN PLATELET VOLUME 10.2 fl (7.4-10.4); PLATELET COUNT 472 10^3/UL (140-415); POSITIVE DIFF @See below; RED BLOOD COUNT 3.47 10^6/ul (4.70-6.10); RED CELL DISTRIBUTION WIDTH 17.1 % (11.5-14.5)
[2018-04-21] MEDS: SODIUM CHLORIDE 0.9% 1L BAG IV* (17:55)
[2018-04-21 17:59] LABS: ADD MAN DIFF? YES
[2018-04-21 18:15] LABS: INR 0.87; PARTIAL THROMBOPLASTIN TIME 25.6 Sec (25.0-35.0); PROTIME 11.9 Sec (11.9-14.9); PT RATIO 0.9
[2018-04-21 18:21] LABS: ALANINE AMINOTRANSFERASE 31 IU/L (13-69); ALBUMIN 4.6 g/dl (3.3-4.9); ALBUMIN/GLOBULIN RATIO 0.83; ALKALINE PHOSPHATASE 481 IU/L (42-121); ASPARTATE AMINO TRANSFERASE 49 IU/L (15-46); BILIRUBIN,INDIRECT 0.1 mg/dl (0-1.1); BILIRUBIN,TOTAL 0.1 mg/dl (0.2-1.3); BLOOD UREA NITROGEN 67 mg/dl (7-20); CALCIUM 9.4 mg/dl (8.4-10.2); CHLORIDE 78 mmol/L (97-110); CREATININE 3.18 mg/dl (0.61-1.24); SODIUM 143 mmol/L (135-144); TOTAL PROTEIN 10.1 g/dl (6.1-8.1)
[2018-04-21] MEDS ORDERED: ONDANSETRON 4 MG INJ (18:23)
[2018-04-21] MEDS: ONDANSETRON 4 MG INJ IV (18:37)
[2018-04-21] MEDS: CEFEPIME 2GM/50 ML (PMX) 50 ML IVPB (18:37)
[2018-04-21 18:47] LABS: LACTIC ACID 2.6 mmol/L (0.5-2.0)
[2018-04-21 18:48] LABS: ANION GAP 22 (8-16); CARBON DIOXIDE 45 mmol/L (21-31); GLUCOSE 50 mg/dl (70-220); POTASSIUM 2.3 mmol/L (3.5-5.1)
[2018-04-21 18:49] LABS: TROPONIN-I < 0.012 ng/ml (0.000-0.120)
[2018-04-21 19:08] LABS: ANISOCYTOSIS 2+ (0-0); BAND NEUTROPHILS #M 1.6 10^3/ul (0.0-0.6); BAND NEUTROPHILS % (M) 8 % (0-4); EOSINOPHILS % (M) 3 % (0-7); LYMPHOCYTES % (M) 29 % (15-51); MICROCYTOSIS 1+ (0-0); MONOCYTE #M 1.2 10^3/ul (0.3-0.9); MONOCYTES % (M) 6 % (0-11); PLATELET ESTIMATE INCREASED; POIKILOCYTOSIS 3+ (0-0); POLYCHROMASIA 3+ (0-0); SEG NEUT #M 11.6 10^3/ul (1.6-7.5); SEGMENTED NEUTROPHILS (M) % 54 % (39-77); SMUDGE%M 32 % (0-0)
[2018-04-21 19:10] LABS: LIPASE 39 U/L (23-300)
[2018-04-21] MEDS: DEXTROSE 50% 50 ML SYRINGE IV (19:25)
[2018-04-21] MEDS: POTASSIUM CHLORIDE 100 ML IVPB ×2 (19:26→23:08)
[2018-04-21 19:39] LABS: URINE BLOOD (Dip) POC 1+ (NEGATIVE); URINE KETONES (Dip) POC Trace (NEGATIVE); URINE LEUKOCYTE EST (Dip) POC Negative (NEGATIVE); URINE NITRITE (Dip) POC Negative (NEGATIVE); URINE TOTAL PROTEIN POC 1+ (NEGATIVE)
[2018-04-21] MEDS: VANCOMYCIN 1 GM (PMX) 250 ML IVPB ×2 (20:00→23:10)
[2018-04-21 20:08] LABS: ADD UMIC YES; UR ASCORBIC ACID NEGATIVE (NEGATIVE); UR BILIRUBIN (Dip) NEGATIVE (NEGATIVE); UR BLOOD (Dip) 1+ mg/dL (NEGATIVE); UR CLARITY CLOUDY (CLEAR); UR COLOR YELLOW (YELLOW); UR GLUCOSE (Dip) 2+ mg/dL (NEGATIVE); UR HYALINE CAST FEW /HPF (NONE SEEN); UR KETONES (Dip) NEGATIVE (NEGATIVE); UR LEUKOCYTE ESTERASE (Dip) NEGATIVE Leu/ul (NEGATIVE); UR MUCUS FEW /HPF (NONE SEEN); UR NITRITE (Dip) NEGATIVE (NEGATIVE); UR RBC 5 /HPF (0-5); UR SPECIFIC GRAVITY (Dip) 1.017 (1.003-1.030); UR SQUAMOUS EPITHELIAL CELL FEW /HPF (FEW); UR TOTAL PROTEIN (Dip) NEGATIVE (NEGATIVE); UR UROBILINOGEN (Dip) NEGATIVE (NEGATIVE); UR WBC 4 /HPF (0-5)
[2018-04-21 21:29] LABS: LACTIC ACID 1.3 mmol/L (0.5-2.0)
[2018-04-21] MEDS: MAGNESIUM SULFATE 2 GM/50 ML 50 ML IVPB (23:10)
[2018-04-21 23:28] LABS: LACTIC ACID 1.1 mmol/L (0.5-2.0)
[2018-04-22] MEDS ORDERED: ONDANSETRON 4 MG INJ IV
[2018-04-22] MEDS: HYDROmorphONE 1 MG/ML SYG IV (00:07)
[2018-04-22] MEDS: SOD CHLORIDE 0.9% 1,000 ML IV ×2 (00:07→02:47)
[2018-04-22] MEDS: DIPHENHYDRAMINE 50 MG INJ IV ×3 (00:07→21:20)
[2018-04-22] MEDS: ONDANSETRON 4 MG INJ IV (00:09)
[2018-04-22] MEDS ORDERED: ACETAMINOPHEN 325 MG TAB PO ×2 (00:30)
[2018-04-22] MEDS ORDERED: ALBUTEROL/IPRATROPIUM (NEB) 3 ML AMP INH (00:30)
[2018-04-22] MEDS ORDERED: DIPHENHYDRAMINE 25 MG CAP PO (00:30)
[2018-04-22] MEDS ORDERED: HYDROmorphONE 2 MG TAB PO (00:30)
[2018-04-22] MEDS ORDERED: NACL 0.9% 3 ML SYG IV (00:30)
[2018-04-22] MEDS: POTASSIUM CHLORIDE 100 ML IVPB (00:51)
[2018-04-22] MEDS: SODIUM CHLORIDE 0.45% 500 ML BAG IV* (01:30)
[2018-04-22] MEDS: NORepinephrine 8MG/250 ML (PMX 250 ML IV (02:56)
[2018-04-22] MEDS: MEROPENEM 500MG/50 ML (PMX) 50 ML IVPB ×2 (03:15→14:31)
[2018-04-22] MEDS: D5W-0.45 NACL + KCL 20 MEQ 1,000 ML IV ×3 (03:16→12:37)
[2018-04-22 07:24] LABS: ADD MAN DIFF? NO
[2018-04-22 07:30] LABS: WHITE BLOOD COUNT 12.5 10^3/ul (4.8-10.8)
[2018-04-22 07:30] LABS: BASOPHILS % 0.3 % (0.0-2.0); EOSINOPHILS % 0.2 % (0.0-7.0); HEMATOCRIT 23.3 % (42.0-52.0); HEMOGLOBIN 7.9 g/dl (14.0-18.0); LYMPHOCYTES % 15.9 % (15.0-51.0); MEAN CORPUSCULAR HEMOGLOBIN 32.4 pg (29.0-33.0); MEAN CORPUSCULAR HGB CONC 33.9 g/dl (32.0-37.0); MEAN CORPUSCULAR VOLUME 95.5 fl (82.0-101.0); MEAN PLATELET VOLUME 10.3 fl (7.4-10.4); MONOCYTE # 1.4 10^3/ul (0.3-0.9); MONOCYTES % 10.8 % (0.0-11.0); NEUTROPHILS % 72.4 % (39.0-77.0); PLATELET COUNT 312 10^3/UL (140-415); RED BLOOD COUNT 2.44 10^6/ul (4.70-6.10); RED CELL DISTRIBUTION WIDTH 17.5 % (11.5-14.5)
[2018-04-22 08:09] LABS: ANION GAP 15 (8-16); BLOOD UREA NITROGEN 47 mg/dl (7-20); CALCIUM 7.9 mg/dl (8.4-10.2); CARBON DIOXIDE 33 mmol/L (21-31); CHLORIDE 96 mmol/L (97-110); CREATININE 1.58 mg/dl (0.61-1.24); GLUCOSE 107 mg/dl (70-220); MAGNESIUM 2.7 mg/dl (1.7-2.5); PHOSPHORUS 3.3 mg/dl (2.5-4.9); POTASSIUM 3.6 mmol/L (3.5-5.1); SODIUM 140 mmol/L (135-144)
[2018-04-22] MEDS: PANTOPRAZOLE (EC) 40 MG TAB PO (09:50)
[2018-04-22] MEDS: HEPARIN 5,000 UNIT/0.5 ML VIAL SC ×2 (09:51→20:08)
[2018-04-22] MEDS: LEVETIRACETAM 500 MG TAB PO ×2 (09:52→20:08)
[2018-04-22] MEDS: HYDROmorphONE 0.5 MG/0.5 ML SYG IV ×4 (12:35→21:20)
[2018-04-22] MEDS ORDERED: DIPHENHYDRAMINE 50 MG INJ IV (15:00)
[2018-04-23] MEDS: HYDROmorphONE 0.5 MG/0.5 ML SYG IV ×8 (00:20→21:40)
[2018-04-23] MEDS: DIPHENHYDRAMINE 50 MG INJ IV ×5 (02:20→21:40)
[2018-04-23] MEDS: MEROPENEM 500MG/50 ML (PMX) 50 ML IVPB ×2 (03:12→17:48)
[2018-04-23] MEDS: PANTOPRAZOLE (EC) 40 MG TAB PO (05:21)
[2018-04-23] MEDS: LORAZEPAM 0.5 MG TAB PO (05:21)
[2018-04-23] MEDS: D5W-0.45 NACL + KCL 20 MEQ 1,000 ML IV ×2 (06:12→14:52)
[2018-04-23] MEDS: LEVETIRACETAM 500 MG TAB PO ×2 (08:38→20:39)
[2018-04-23] MEDS: HEPARIN 5,000 UNIT/0.5 ML VIAL SC ×2 (08:40→20:42)
[2018-04-23 08:44] LABS: ADD MAN DIFF? NO
[2018-04-23 08:47] LABS: WHITE BLOOD COUNT 5.1 10^3/ul (4.8-10.8)
[2018-04-23 08:47] LABS: BASOPHILS % 0.8 % (0.0-2.0); EOSINOPHILS # 0.3 10^3/ul (0.0-0.5); EOSINOPHILS % 5.1 % (0.0-7.0); HEMATOCRIT 21.8 % (42.0-52.0); HEMOGLOBIN 7.1 g/dl (14.0-18.0); LYMPHOCYTES # 1.9 10^3/ul (0.8-2.9); LYMPHOCYTES % 37.8 % (15.0-51.0); MEAN CORPUSCULAR HEMOGLOBIN 32.6 pg (29.0-33.0); MEAN CORPUSCULAR HGB CONC 32.6 g/dl (32.0-37.0); MEAN PLATELET VOLUME 10.8 fl (7.4-10.4); MONOCYTE # 0.8 10^3/ul (0.3-0.9); MONOCYTES % 16.4 % (0.0-11.0); NEUTROPHILS % 39.7 % (39.0-77.0); PLATELET COUNT 274 10^3/UL (140-415); RED BLOOD COUNT 2.18 10^6/ul (4.70-6.10)
[2018-04-23 09:15] LABS: ALANINE AMINOTRANSFERASE 22 IU/L (13-69); ALBUMIN 2.7 g/dl (3.3-4.9); ALBUMIN/GLOBULIN RATIO 0.84; ALKALINE PHOSPHATASE 243 IU/L (42-121); ANION GAP 12 (8-16); ASPARTATE AMINO TRANSFERASE 29 IU/L (15-46); BILIRUBIN,INDIRECT 0.2 mg/dl (0-1.1); BILIRUBIN,TOTAL 0.2 mg/dl (0.2-1.3); BLOOD UREA NITROGEN 24 mg/dl (7-20); CALCIUM 7.3 mg/dl (8.4-10.2); CARBON DIOXIDE 29 mmol/L (21-31); CHLORIDE 104 mmol/L (97-110); CREATININE 1.02 mg/dl (0.61-1.24); GLUCOSE 369 mg/dl (70-220); POTASSIUM 4.5 mmol/L (3.5-5.1); SODIUM 140 mmol/L (135-144); TOTAL PROTEIN 5.9 g/dl (6.1-8.1)
[2018-04-23] MEDS: SOD CHLORIDE 0.9% 250 ML IV* (11:37)
[2018-04-23 14:49] LABS: IMMEDIATE SPIN CROSSMATCH 1 1
[2018-04-24] MEDS: HYDROmorphONE 0.5 MG/0.5 ML SYG IV ×8 (00:31→22:29)
[2018-04-24] MEDS: DIPHENHYDRAMINE 50 MG INJ IV ×4 (04:05→22:29)
[2018-04-24] MEDS: MEROPENEM 500MG/50 ML (PMX) 50 ML IVPB ×2 (04:06→16:31)
[2018-04-24] MEDS: D5W-0.45 NACL + KCL 20 MEQ 1,000 ML IV ×3 (04:09→14:51)
[2018-04-24] MEDS: PANTOPRAZOLE (EC) 40 MG TAB PO (06:11)
[2018-04-24] MEDS: LEVETIRACETAM 500 MG TAB PO ×2 (08:47→22:30)
[2018-04-24] MEDS: HEPARIN 5,000 UNIT/0.5 ML VIAL SC ×2 (08:48→21:00)
[2018-04-25] MEDS: MEROPENEM 500MG/50 ML (PMX) 50 ML IVPB (01:21)
[2018-04-25] MEDS: HYDROmorphONE 0.5 MG/0.5 ML SYG IV ×7 (01:21→22:17)
[2018-04-25] MEDS: D5W-0.45 NACL + KCL 20 MEQ 1,000 ML IV ×2 (01:24→13:22)
[2018-04-25] MEDS: DIPHENHYDRAMINE 50 MG INJ IV ×4 (04:23→23:26)
[2018-04-25] MEDS: PANTOPRAZOLE (EC) 40 MG TAB PO (06:30)
[2018-04-25] MEDS: LEVETIRACETAM 500 MG TAB PO (07:44)
[2018-04-25] MEDS: HEPARIN 5,000 UNIT/0.5 ML VIAL SC ×2 (07:48→21:00)
[2018-04-25 08:09] LABS: ANION GAP 18 (8-16); BLOOD UREA NITROGEN 16 mg/dl (7-20); CALCIUM 8.1 mg/dl (8.4-10.2); CARBON DIOXIDE 27 mmol/L (21-31); CHLORIDE 96 mmol/L (97-110); CREATININE 1.09 mg/dl (0.61-1.24); MAGNESIUM 1.6 mg/dl (1.7-2.5); PHOSPHORUS 3.3 mg/dl (2.5-4.9); POTASSIUM 5.7 mmol/L (3.5-5.1); SODIUM 135 mmol/L (135-144)
[2018-04-25 08:12] LABS: GLUCOSE 525 mg/dl (70-220)
[2018-04-25 11:20] LABS: ANION GAP 17 (8-16); BLOOD UREA NITROGEN 18 mg/dl (7-20); CALCIUM 9.5 mg/dl (8.4-10.2); CARBON DIOXIDE 28 mmol/L (21-31); CHLORIDE 101 mmol/L (97-110); CREATININE 1.28 mg/dl (0.61-1.24); GLUCOSE 89 mg/dl (70-220); MAGNESIUM 1.8 mg/dl (1.7-2.5); PHOSPHORUS 4.2 mg/dl (2.5-4.9); POTASSIUM 4.1 mmol/L (3.5-5.1); SODIUM 142 mmol/L (135-144)
[2018-04-25] MEDS: FAT EMULSION 20% 250 ML IV (16:14)
[2018-04-25] MEDS: DEXTROSE 5%-0.45% NACL 1,000 ML IV (17:52)
[2018-04-25] MEDS: TPN 1,000 ML IV (17:52)
[2018-04-25] MEDS ORDERED: TPN 1,000 ML IV (19:11)
[2018-04-25] MEDS ORDERED: GLUCAGON 1 MG INJ IM (20:00)
[2018-04-25] MEDS ORDERED: GLUCOSE GEL 15 GRAM TUBE BUCCAL (20:00)
[2018-04-25] MEDS ORDERED: GLUCOSE GEL 15 GRAM TUBE PO ×2 (20:00)
[2018-04-25] MEDS ORDERED: DEXTROSE 50% 50 ML SYRINGE IV ×2 (20:00)
[2018-04-25] MEDS: INSULIN ASPART [NOVOLOG] 3 ML PEN SC (21:00)
[2018-04-25] MEDS: ACCU-CHEK XX (21:30)
[2018-04-26] MEDS: ACCU-CHEK XX ×6 (00:38→20:47)
[2018-04-26] MEDS: INSULIN ASPART [NOVOLOG] 3 ML PEN SC ×6 (01:00→20:50)
[2018-04-26] MEDS: DEXTROSE 5%-0.45% NACL 1,000 ML IV ×3 (01:37→19:28)
[2018-04-26] MEDS: HYDROmorphONE 0.5 MG/0.5 ML SYG IV ×4 (04:39→23:19)
[2018-04-26] MEDS: DIPHENHYDRAMINE 50 MG INJ IV ×3 (05:46→16:53)
[2018-04-26] MEDS: ONDANSETRON 4 MG INJ IV (05:46)
[2018-04-26] MEDS: PANTOPRAZOLE (EC) 40 MG TAB PO (05:47)
[2018-04-26 07:08] LABS: ANION GAP 19 (8-16); BLOOD UREA NITROGEN 22 mg/dl (7-20); CALCIUM 9.3 mg/dl (8.4-10.2); CARBON DIOXIDE 27 mmol/L (21-31); CHLORIDE 96 mmol/L (97-110); CREATININE 1.29 mg/dl (0.61-1.24); GLUCOSE 99 mg/dl (70-220); MAGNESIUM 1.7 mg/dl (1.7-2.5); PHOSPHORUS 4.2 mg/dl (2.5-4.9); SODIUM 138 mmol/L (135-144)
[2018-04-26 07:14] LABS: TRIGLYCERIDES 363 mg/dl (0-149)
[2018-04-26 07:25] LABS: PREALBUMIN 32.8 mg/dl (17.6-36.0)
[2018-04-26] MEDS: HEPARIN 5,000 UNIT/0.5 ML VIAL SC ×2 (08:17→20:50)
[2018-04-26] MEDS: TPN 1,000 ML IV ×2 (10:53→21:55)
[2018-04-27] MEDS: DIPHENHYDRAMINE 50 MG INJ IV ×4 (00:24→18:03)
[2018-04-27] MEDS: TPN 1,000 ML IV ×2 (04:08→20:26)
[2018-04-27] MEDS: INSULIN ASPART [NOVOLOG] 3 ML PEN SC ×4 (05:00→13:00)
[2018-04-27] MEDS: ACCU-CHEK XX ×4 (05:00→13:01)
[2018-04-27] MEDS: DEXTROSE 5%-0.45% NACL 1,000 ML IV (05:28)
[2018-04-27] MEDS: PANTOPRAZOLE (EC) 40 MG TAB PO (05:28)
[2018-04-27] MEDS: HYDROmorphONE 0.5 MG/0.5 ML SYG IV ×3 (05:28→23:28)
[2018-04-27 07:01] LABS: ANION GAP 23 (8-16); BLOOD UREA NITROGEN 39 mg/dl (7-20); CALCIUM 9.9 mg/dl (8.4-10.2); CARBON DIOXIDE 32 mmol/L (21-31); CHLORIDE 88 mmol/L (97-110); CREATININE 1.64 mg/dl (0.61-1.24); GLUCOSE 105 mg/dl (70-220); MAGNESIUM 1.9 mg/dl (1.7-2.5); PHOSPHORUS 3.8 mg/dl (2.5-4.9); SODIUM 140 mmol/L (135-144)
[2018-04-27 07:01] LABS: TRIGLYCERIDES 298 mg/dl (0-149)
[2018-04-27 07:07] LABS: POTASSIUM 2.6 mmol/L (3.5-5.1)
[2018-04-27 08:50] LABS: ANION GAP 21 (8-16); BLOOD UREA NITROGEN 44 mg/dl (7-20); CALCIUM 9.6 mg/dl (8.4-10.2); CARBON DIOXIDE 32 mmol/L (21-31); CHLORIDE 88 mmol/L (97-110); CREATININE 1.67 mg/dl (0.61-1.24); GLUCOSE 116 mg/dl (70-220); SODIUM 138 mmol/L (135-144)
[2018-04-27 08:52] LABS: POTASSIUM 2.8 mmol/L (3.5-5.1)
[2018-04-27] MEDS: HEPARIN 5,000 UNIT/0.5 ML VIAL SC ×2 (09:00→20:30)
[2018-04-27] MEDS: SOD CHLORIDE 0.9% 1,000 ML IV ×5 (09:07→23:28)
[2018-04-27 09:33] LABS: ADD MAN DIFF? NO
[2018-04-27 09:40] LABS: BASOPHIL # 0.1 10^3/ul (0.0-0.1); BASOPHILS % 0.5 % (0.0-2.0); EOSINOPHILS # 0.3 10^3/ul (0.0-0.5); EOSINOPHILS % 2.2 % (0.0-7.0); HEMOGLOBIN 12.8 g/dl (14.0-18.0); LYMPHOCYTES # 2.1 10^3/ul (0.8-2.9); LYMPHOCYTES % 15.9 % (15.0-51.0); MEAN CORPUSCULAR HEMOGLOBIN 31.8 pg (29.0-33.0); MEAN CORPUSCULAR HGB CONC 34.6 g/dl (32.0-37.0); MEAN PLATELET VOLUME 11.2 fl (7.4-10.4); MONOCYTE # 1.5 10^3/ul (0.3-0.9); MONOCYTES % 11.2 % (0.0-11.0); NEUTROPHIL # 9.2 10^3/ul (1.6-7.5); PLATELET COUNT 286 10^3/UL (140-415); RED BLOOD COUNT 4.02 10^6/ul (4.70-6.10); RED CELL DISTRIBUTION WIDTH 15.8 % (11.5-14.5)
[2018-04-27 09:40] LABS: WHITE BLOOD COUNT 13.1 10^3/ul (4.8-10.8)
[2018-04-27] MEDS: POTASSIUM CHLORIDE 100 ML IVPB ×4 (10:41→18:03)
[2018-04-27 15:07] LABS: ANION GAP 20 (8-16); BLOOD UREA NITROGEN 52 mg/dl (7-20); CARBON DIOXIDE 35 mmol/L (21-31); CHLORIDE 88 mmol/L (97-110); CREATININE 1.81 mg/dl (0.61-1.24); GLUCOSE 101 mg/dl (70-220); POTASSIUM 3.3 mmol/L (3.5-5.1); SODIUM 140 mmol/L (135-144)
[2018-04-27] MEDS: FAT EMULSION 20% 250 ML IV (16:14)
[2018-04-27] MEDS: FENTAnyl PATCH 12 MCG/HR TRANSDERM (18:04)
[2018-04-27 18:51] LABS: ANION GAP 19 (8-16); BLOOD UREA NITROGEN 51 mg/dl (7-20); CALCIUM 9.3 mg/dl (8.4-10.2); CARBON DIOXIDE 34 mmol/L (21-31); CHLORIDE 91 mmol/L (97-110); CREATININE 1.86 mg/dl (0.61-1.24); GLUCOSE 397 mg/dl (70-220); SODIUM 140 mmol/L (135-144)
[2018-04-28] MEDS: DIPHENHYDRAMINE 50 MG INJ IV ×4 (00:42→18:33)
[2018-04-28] MEDS: SOD CHLORIDE 0.9% 1,000 ML IV ×6 (04:12→21:56)
[2018-04-28] MEDS: HYDROmorphONE 0.5 MG/0.5 ML SYG IV ×4 (05:34→21:58)
[2018-04-28] MEDS: PANTOPRAZOLE (EC) 40 MG TAB PO (05:36)
[2018-04-28 05:51] LABS: ADD MAN DIFF? NO
[2018-04-28 05:56] LABS: WHITE BLOOD COUNT 8.9 10^3/ul (4.8-10.8)
[2018-04-28 05:56] LABS: BASOPHIL # 0.1 10^3/ul (0.0-0.1); BASOPHILS % 0.7 % (0.0-2.0); EOSINOPHILS # 0.2 10^3/ul (0.0-0.5); EOSINOPHILS % 2.4 % (0.0-7.0); HEMATOCRIT 37.6 % (42.0-52.0); HEMOGLOBIN 12.6 g/dl (14.0-18.0); LYMPHOCYTES % 22.6 % (15.0-51.0); MEAN CORPUSCULAR HEMOGLOBIN 31.5 pg (29.0-33.0); MEAN CORPUSCULAR HGB CONC 33.5 g/dl (32.0-37.0); MEAN PLATELET VOLUME 11.2 fl (7.4-10.4); MONOCYTE # 1.3 10^3/ul (0.3-0.9); MONOCYTES % 14.2 % (0.0-11.0); NEUTROPHIL # 5.3 10^3/ul (1.6-7.5); NEUTROPHILS % 59.8 % (39.0-77.0); PLATELET COUNT 287 10^3/UL (140-415); RED CELL DISTRIBUTION WIDTH 15.8 % (11.5-14.5)
[2018-04-28 06:40] LABS: BLOOD UREA NITROGEN 63 mg/dl (7-20); CALCIUM 9.5 mg/dl (8.4-10.2); CHLORIDE 88 mmol/L (97-110); CREATININE 1.71 mg/dl (0.61-1.24); GLUCOSE 99 mg/dl (70-220); MAGNESIUM 2.3 mg/dl (1.7-2.5); PHOSPHORUS 3.8 mg/dl (2.5-4.9); SODIUM 144 mmol/L (135-144)
[2018-04-28 06:46] LABS: ANION GAP 20 (8-16)
[2018-04-28 06:55] LABS: CARBON DIOXIDE 39 mmol/L (21-31)
[2018-04-28 06:58] LABS: POTASSIUM 2.8 mmol/L (3.5-5.1)
[2018-04-28] MEDS ORDERED: POTASSIUM CHLORIDE (SR) 20 MEQ TAB PO (07:00)
[2018-04-28] MEDS ORDERED: MAGNESIUM SULFATE 1 GM/D5W 100 ML IVPB (08:00)
[2018-04-28] MEDS: HEPARIN 5,000 UNIT/0.5 ML VIAL SC (09:00)
[2018-04-28] MEDS: POTASSIUM CHLORIDE 100 ML IVPB ×3 (09:10→13:12)
[2018-04-28] MEDS: TPN 1,000 ML IV (11:12)
[2018-04-28 12:39] LABS: ADD UMIC YES; UR ASCORBIC ACID NEGATIVE (NEGATIVE); UR BILIRUBIN (Dip) NEGATIVE (NEGATIVE); UR BLOOD (Dip) NEGATIVE (NEGATIVE); UR CLARITY CLEAR (CLEAR); UR COLOR AMBER (YELLOW); UR GLUCOSE (Dip) NEGATIVE (NEGATIVE); UR HYALINE CAST MODERATE /HPF (NONE SEEN); UR KETONES (Dip) NEGATIVE (NEGATIVE); UR LEUKOCYTE ESTERASE (Dip) NEGATIVE Leu/ul (NEGATIVE); UR MUCUS MODERATE /HPF (NONE SEEN); UR NITRITE (Dip) NEGATIVE (NEGATIVE); UR RBC 44 /HPF (0-5); UR SPECIFIC GRAVITY (Dip) 1.025 (1.003-1.030); UR TOTAL PROTEIN (Dip) 1+ mg/dl (NEGATIVE); UR UROBILINOGEN (Dip) NEGATIVE (NEGATIVE); UR WBC 0 /HPF (0-5)
[2018-04-28 13:12] LABS: SODIUM,URINE RANDOM < 13 mmol/L (30-90)
[2018-04-28 13:12] LABS: CREATININE,URINE RANDOM 424.32 mg/dl (20-370)
[2018-04-28 14:53] LABS: BLOOD UREA NITROGEN 68 mg/dl (7-20); CALCIUM 9.5 mg/dl (8.4-10.2); CHLORIDE 86 mmol/L (97-110); CREATININE 1.56 mg/dl (0.61-1.24); GLUCOSE 145 mg/dl (70-220); POTASSIUM 3.6 mmol/L (3.5-5.1); SODIUM 145 mmol/L (135-144)
[2018-04-28 15:04] LABS: ANION GAP 20 (8-16); CARBON DIOXIDE 43 mmol/L (21-31)
[2018-04-29] MEDS: DIPHENHYDRAMINE 50 MG INJ IV ×4 (00:31→19:29)
[2018-04-29] MEDS: TPN 1,000 ML IV ×3 (00:47→22:22)
[2018-04-29] MEDS: HYDROmorphONE 0.5 MG/0.5 ML SYG IV ×3 (02:07→10:33)
[2018-04-29] MEDS: SOD CHLORIDE 0.9% 1,000 ML IV ×2 (03:15→09:24)
[2018-04-29] MEDS: PANTOPRAZOLE (EC) 40 MG TAB PO (05:44)
[2018-04-29 06:11] LABS: ADD MAN DIFF? NO
[2018-04-29 06:19] LABS: BASOPHIL # 0.1 10^3/ul (0.0-0.1); BASOPHILS % 0.7 % (0.0-2.0); EOSINOPHILS # 0.2 10^3/ul (0.0-0.5); EOSINOPHILS % 2.8 % (0.0-7.0); HEMATOCRIT 32.2 % (42.0-52.0); HEMOGLOBIN 10.5 g/dl (14.0-18.0); LYMPHOCYTES # 1.6 10^3/ul (0.8-2.9); MEAN CORPUSCULAR HEMOGLOBIN 31.5 pg (29.0-33.0); MEAN CORPUSCULAR HGB CONC 32.6 g/dl (32.0-37.0); MEAN CORPUSCULAR VOLUME 96.7 fl (82.0-101.0); MEAN PLATELET VOLUME 11.3 fl (7.4-10.4); MONOCYTE # 1.4 10^3/ul (0.3-0.9); MONOCYTES % 21.4 % (0.0-11.0); NEUTROPHIL # 3.4 10^3/ul (1.6-7.5); NEUTROPHILS % 50.8 % (39.0-77.0); PLATELET COUNT 255 10^3/UL (140-415); RED BLOOD COUNT 3.33 10^6/ul (4.70-6.10); RED CELL DISTRIBUTION WIDTH 16.1 % (11.5-14.5)
[2018-04-29 06:19] LABS: WHITE BLOOD COUNT 6.7 10^3/ul (4.8-10.8)
[2018-04-29 07:03] LABS: BLOOD UREA NITROGEN 56 mg/dl (7-20); CHLORIDE 98 mmol/L (97-110); CREATININE 1.12 mg/dl (0.61-1.24); GLUCOSE 58 mg/dl (70-220); MAGNESIUM 2.4 mg/dl (1.7-2.5); SODIUM 150 mmol/L (135-144)
[2018-04-29 07:13] LABS: ANION GAP 14 (8-16)
[2018-04-29 07:14] LABS: POTASSIUM 2.8 mmol/L (3.5-5.1)
[2018-04-29 07:15] LABS: CARBON DIOXIDE 41 mmol/L (21-31)
[2018-04-29 09:09] LABS: ALANINE AMINOTRANSFERASE 17 IU/L (13-69); ALBUMIN 4.1 g/dl (3.3-4.9); ALKALINE PHOSPHATASE 293 IU/L (42-121); ASPARTATE AMINO TRANSFERASE 32 IU/L (15-46); BILIRUBIN,INDIRECT 0.3 mg/dl (0-1.1); BILIRUBIN,TOTAL 0.3 mg/dl (0.2-1.3); BLOOD UREA NITROGEN 55 mg/dl (7-20); CALCIUM 9.2 mg/dl (8.4-10.2); CHLORIDE 97 mmol/L (97-110); CREATININE 1.11 mg/dl (0.61-1.24); GLUCOSE 88 mg/dl (70-220); SODIUM 152 mmol/L (135-144); TOTAL PROTEIN 7.8 g/dl (6.1-8.1)
[2018-04-29 09:11] LABS: ANION GAP 16 (8-16); CARBON DIOXIDE 42 mmol/L (21-31); POTASSIUM 2.9 mmol/L (3.5-5.1)
[2018-04-29] MEDS: POTASSIUM CHLORIDE 100 ML IVPB ×3 (09:24→13:25)
[2018-04-29] MEDS: SOD CHLORIDE 0.45% 1,000 ML IV ×4 (09:35→22:26)
[2018-04-29] MEDS: HYDROmorphONE 1 MG/ML SYG IV ×3 (14:36→22:35)
[2018-04-29 15:41] LABS: ANION GAP 14 (8-16); BLOOD UREA NITROGEN 47 mg/dl (7-20); CALCIUM 9.1 mg/dl (8.4-10.2); CARBON DIOXIDE 33 mmol/L (21-31); CHLORIDE 106 mmol/L (97-110); CREATININE 0.92 mg/dl (0.61-1.24); GLUCOSE 88 mg/dl (70-220); POTASSIUM 4.9 mmol/L (3.5-5.1); SODIUM 148 mmol/L (135-144)
[2018-04-29] MEDS: FAT EMULSION 20% 250 ML IV (16:25)
[2018-04-30] MEDS: DIPHENHYDRAMINE 50 MG INJ IV ×4 (01:33→20:19)
[2018-04-30] MEDS: HYDROmorphONE 1 MG/ML SYG IV ×6 (02:34→22:19)
[2018-04-30] MEDS: SOD CHLORIDE 0.45% 1,000 ML IV ×5 (03:56→22:37)
[2018-04-30] MEDS: PANTOPRAZOLE 40 MG INJ IV (05:37)
[2018-04-30 06:12] LABS: ADD MAN DIFF? NO
[2018-04-30 06:16] LABS: BASOPHILS % 0.6 % (0.0-2.0); EOSINOPHILS # 0.3 10^3/ul (0.0-0.5); EOSINOPHILS % 3.7 % (0.0-7.0); HEMATOCRIT 27.5 % (42.0-52.0); HEMOGLOBIN 8.8 g/dl (14.0-18.0); LYMPHOCYTES % 28.7 % (15.0-51.0); MEAN CORPUSCULAR HEMOGLOBIN 31.7 pg (29.0-33.0); MEAN CORPUSCULAR VOLUME 98.9 fl (82.0-101.0); MEAN PLATELET VOLUME 11.6 fl (7.4-10.4); MONOCYTE # 1.3 10^3/ul (0.3-0.9); MONOCYTES % 18.4 % (0.0-11.0); NEUTROPHIL # 3.4 10^3/ul (1.6-7.5); NEUTROPHILS % 48.3 % (39.0-77.0); PLATELET COUNT 224 10^3/UL (140-415); RED BLOOD COUNT 2.78 10^6/ul (4.70-6.10); RED CELL DISTRIBUTION WIDTH 16.3 % (11.5-14.5)
[2018-04-30 06:16] LABS: WHITE BLOOD COUNT 7.1 10^3/ul (4.8-10.8)
[2018-04-30 06:54] LABS: TRIGLYCERIDES 178 mg/dl (0-149)
[2018-04-30 07:13] LABS: ANION GAP 13 (8-16); BLOOD UREA NITROGEN 34 mg/dl (7-20); CALCIUM 8.9 mg/dl (8.4-10.2); CARBON DIOXIDE 27 mmol/L (21-31); CHLORIDE 107 mmol/L (97-110); CREATININE 0.85 mg/dl (0.61-1.24); GLUCOSE 66 mg/dl (70-220); MAGNESIUM 1.9 mg/dl (1.7-2.5); PHOSPHORUS 1.8 mg/dl (2.5-4.9); POTASSIUM 3.8 mmol/L (3.5-5.1); SODIUM 143 mmol/L (135-144)
[2018-04-30] MEDS: POTASSIUM PHOSPHATE 20 MEQ in SOD CHLORIDE 0.9% 250 ML IVPB (10:22)
[2018-04-30] MEDS: FENTAnyl PATCH 12 MCG/HR TRANSDERM (17:21)
[2018-04-30] MEDS: TPN 1,000 ML IV (21:16)
[2018-05-01] MEDS: HYDROmorphONE 1 MG/ML SYG IV ×6 (02:21→22:45)
[2018-05-01] MEDS: DIPHENHYDRAMINE 50 MG INJ IV ×4 (03:01→21:14)
[2018-05-01] MEDS: SOD CHLORIDE 0.45% 1,000 ML IV ×3 (03:51→18:34)
[2018-05-01] MEDS: PANTOPRAZOLE 40 MG INJ IV (05:32)
[2018-05-01 06:57] LABS: ADD MAN DIFF? NO
[2018-05-01 07:06] LABS: WHITE BLOOD COUNT 5.1 10^3/ul (4.8-10.8)
[2018-05-01 07:06] LABS: BASOPHIL # 0.1 10^3/ul (0.0-0.1); EOSINOPHILS # 0.5 10^3/ul (0.0-0.5); EOSINOPHILS % 10.2 % (0.0-7.0); HEMATOCRIT 26.7 % (42.0-52.0); HEMOGLOBIN 8.6 g/dl (14.0-18.0); LYMPHOCYTES # 1.8 10^3/ul (0.8-2.9); LYMPHOCYTES % 35.2 % (15.0-51.0); MEAN CORPUSCULAR HEMOGLOBIN 31.6 pg (29.0-33.0); MEAN CORPUSCULAR HGB CONC 32.2 g/dl (32.0-37.0); MEAN CORPUSCULAR VOLUME 98.2 fl (82.0-101.0); MEAN PLATELET VOLUME 11.2 fl (7.4-10.4); MONOCYTE # 0.8 10^3/ul (0.3-0.9); MONOCYTES % 15.9 % (0.0-11.0); NEUTROPHIL # 1.9 10^3/ul (1.6-7.5); NEUTROPHILS % 37.5 % (39.0-77.0); PLATELET COUNT 222 10^3/UL (140-415); RED BLOOD COUNT 2.72 10^6/ul (4.70-6.10); RED CELL DISTRIBUTION WIDTH 16.1 % (11.5-14.5)
[2018-05-01 07:34] LABS: ANION GAP 14 (8-16); BLOOD UREA NITROGEN 32 mg/dl (7-20); CALCIUM 8.8 mg/dl (8.4-10.2); CARBON DIOXIDE 22 mmol/L (21-31); CHLORIDE 110 mmol/L (97-110); CREATININE 0.88 mg/dl (0.61-1.24); GLUCOSE 66 mg/dl (70-220); MAGNESIUM 1.7 mg/dl (1.7-2.5); PHOSPHORUS 3.1 mg/dl (2.5-4.9); POTASSIUM 4.4 mmol/L (3.5-5.1); SODIUM 142 mmol/L (135-144)
[2018-05-01] MEDS: TPN 1,000 ML IV (10:32)
[2018-05-01 16:26] LABS: CREATININE, RANDOM URINE 402 mg/dL (20-370); MICROALBUMIN/CREATININE RATIO 20 (<30)
[2018-05-01] MEDS: FAT EMULSION 20% 250 ML IV (16:36)
[2018-05-02] MEDS: HYDROmorphONE 1 MG/ML SYG IV ×6 (02:52→23:00)
[2018-05-02] MEDS: SOD CHLORIDE 0.45% 1,000 ML IV ×2 (02:53→16:56)
[2018-05-02] MEDS: DIPHENHYDRAMINE 50 MG INJ IV ×4 (03:17→20:32)
[2018-05-02] MEDS: PANTOPRAZOLE 40 MG INJ IV (05:17)
[2018-05-02 06:22] LABS: ADD MAN DIFF? NO
[2018-05-02 06:27] LABS: WHITE BLOOD COUNT 8.7 10^3/ul (4.8-10.8)
[2018-05-02 06:27] LABS: BASOPHILS % 0.5 % (0.0-2.0); EOSINOPHILS # 0.4 10^3/ul (0.0-0.5); EOSINOPHILS % 4.8 % (0.0-7.0); HEMATOCRIT 24.2 % (42.0-52.0); LYMPHOCYTES # 1.8 10^3/ul (0.8-2.9); LYMPHOCYTES % 20.1 % (15.0-51.0); MEAN CORPUSCULAR HEMOGLOBIN 32.5 pg (29.0-33.0); MEAN CORPUSCULAR HGB CONC 33.1 g/dl (32.0-37.0); MEAN CORPUSCULAR VOLUME 98.4 fl (82.0-101.0); MEAN PLATELET VOLUME 11.3 fl (7.4-10.4); MONOCYTES % 11.7 % (0.0-11.0); NEUTROPHIL # 5.5 10^3/ul (1.6-7.5); NEUTROPHILS % 62.7 % (39.0-77.0); PLATELET COUNT 259 10^3/UL (140-415); RED BLOOD COUNT 2.46 10^6/ul (4.70-6.10); RED CELL DISTRIBUTION WIDTH 15.7 % (11.5-14.5)
[2018-05-02 06:55] LABS: ANION GAP 18 (8-16); BLOOD UREA NITROGEN 28 mg/dl (7-20); CARBON DIOXIDE 18 mmol/L (21-31); CHLORIDE 108 mmol/L (97-110); CREATININE 0.89 mg/dl (0.61-1.24); GLUCOSE 88 mg/dl (70-220); PHOSPHORUS 2.7 mg/dl (2.5-4.9); POTASSIUM 3.2 mmol/L (3.5-5.1); SODIUM 141 mmol/L (135-144)
[2018-05-02 06:58] LABS: PREALBUMIN 27.2 mg/dl (17.6-36.0)
[2018-05-02] MEDS: TPN 1,000 ML IV ×2 (07:00→21:24)
[2018-05-02 07:31] LABS: MAGNESIUM 1.6 mg/dl (1.7-2.5)
[2018-05-02] MEDS: POTASSIUM CHLORIDE 100 ML IVPB ×2 (09:19→11:13)
[2018-05-02] MEDS: MAGNESIUM SULFATE 2 GM/50 ML 50 ML IVPB (13:59)
[2018-05-02] MEDS: OLANZAPINE (ODT) 5 MG TAB ODT (13:59)
[2018-05-02 18:26] LABS: CHLORIDE, RANDOM URINE <20 mmol/L (32-290)
[2018-05-03] MEDS: DIPHENHYDRAMINE 50 MG INJ IV ×3 (02:40→19:02)
[2018-05-03] MEDS: HYDROmorphONE 1 MG/ML SYG IV ×6 (03:14→23:28)
[2018-05-03] MEDS: TPN 1,000 ML IV ×2 (04:42→14:15)
[2018-05-03] MEDS: SOD CHLORIDE 0.45% 1,000 ML IV ×3 (06:05→21:24)
[2018-05-03] MEDS: PANTOPRAZOLE 40 MG INJ IV (06:05)
[2018-05-03 06:29] LABS: ADD MAN DIFF? NO
[2018-05-03 06:40] LABS: BASOPHILS % 0.6 % (0.0-2.0); EOSINOPHILS # 0.3 10^3/ul (0.0-0.5); EOSINOPHILS % 5.1 % (0.0-7.0); HEMATOCRIT 31.9 % (42.0-52.0); HEMOGLOBIN 10.3 g/dl (14.0-18.0); LYMPHOCYTES # 1.6 10^3/ul (0.8-2.9); LYMPHOCYTES % 29.6 % (15.0-51.0); MEAN CORPUSCULAR HEMOGLOBIN 31.8 pg (29.0-33.0); MEAN CORPUSCULAR HGB CONC 32.3 g/dl (32.0-37.0); MEAN CORPUSCULAR VOLUME 98.5 fl (82.0-101.0); MEAN PLATELET VOLUME 10.8 fl (7.4-10.4); MONOCYTE # 0.9 10^3/ul (0.3-0.9); MONOCYTES % 16.7 % (0.0-11.0); NEUTROPHIL # 2.5 10^3/ul (1.6-7.5); NEUTROPHILS % 47.8 % (39.0-77.0); PLATELET COUNT 270 10^3/UL (140-415); RED BLOOD COUNT 3.24 10^6/ul (4.70-6.10); RED CELL DISTRIBUTION WIDTH 15.8 % (11.5-14.5)
[2018-05-03 06:40] LABS: WHITE BLOOD COUNT 5.3 10^3/ul (4.8-10.8)
[2018-05-03 07:14] LABS: ANION GAP 17 (8-16); BLOOD UREA NITROGEN 31 mg/dl (7-20); CALCIUM 9.6 mg/dl (8.4-10.2); CARBON DIOXIDE 18 mmol/L (21-31); CHLORIDE 113 mmol/L (97-110); CREATININE 0.96 mg/dl (0.61-1.24); GLUCOSE 92 mg/dl (70-220); PHOSPHORUS 2.5 mg/dl (2.5-4.9); SODIUM 144 mmol/L (135-144)
[2018-05-03] MEDS: OLANZAPINE (ODT) 5 MG TAB ODT ×3 (07:44→21:29)
[2018-05-03] MEDS: ONDANSETRON 4 MG INJ IV (14:16)
[2018-05-03] MEDS: FAT EMULSION 20% 250 ML IV (17:52)
[2018-05-03] MEDS: FENTAnyl PATCH 12 MCG/HR TRANSDERM (19:02)
[2018-05-04] MEDS: DIPHENHYDRAMINE 50 MG INJ IV ×4 (01:05→19:03)
[2018-05-04] MEDS: HYDROmorphONE 1 MG/ML SYG IV ×6 (03:47→23:50)
[2018-05-04] MEDS: ONDANSETRON 4 MG INJ IV (04:43)
[2018-05-04] MEDS: TPN 1,000 ML IV ×2 (05:13→19:02)
[2018-05-04] MEDS: PANTOPRAZOLE 40 MG INJ IV (05:13)
[2018-05-04 06:06] LABS: ANION GAP 22 (8-16); BLOOD UREA NITROGEN 40 mg/dl (7-20); CALCIUM 10.7 mg/dl (8.4-10.2); CARBON DIOXIDE 18 mmol/L (21-31); CHLORIDE 107 mmol/L (97-110); CREATININE 1.18 mg/dl (0.61-1.24); GLUCOSE 92 mg/dl (70-220); MAGNESIUM 1.9 mg/dl (1.7-2.5); PHOSPHORUS 2.7 mg/dl (2.5-4.9); POTASSIUM 4.5 mmol/L (3.5-5.1); SODIUM 142 mmol/L (135-144)
[2018-05-04 06:10] LABS: TRIGLYCERIDES 374 mg/dl (0-149)
[2018-05-04] MEDS: OLANZAPINE (ODT) 5 MG TAB ODT ×3 (10:22→21:03)
[2018-05-04] MEDS: SOD CHLORIDE 0.45% 1,000 ML IV (11:43)
[2018-05-05] MEDS: DIPHENHYDRAMINE 50 MG INJ IV ×4 (01:29→19:37)
[2018-05-05] MEDS: SOD CHLORIDE 0.45% 1,000 ML IV (01:29)
[2018-05-05] MEDS: HYDROmorphONE 1 MG/ML SYG IV ×5 (04:06→20:28)
[2018-05-05] MEDS: PANTOPRAZOLE 40 MG INJ IV (05:23)
[2018-05-05] MEDS: ONDANSETRON 4 MG INJ IV ×2 (05:23→18:10)
[2018-05-05 06:56] LABS: ANION GAP 20 (8-16); BLOOD UREA NITROGEN 58 mg/dl (7-20); CALCIUM 11.1 mg/dl (8.4-10.2); CARBON DIOXIDE 21 mmol/L (21-31); CHLORIDE 103 mmol/L (97-110); CREATININE 1.53 mg/dl (0.61-1.24); GLUCOSE 121 mg/dl (70-220); MAGNESIUM 2.2 mg/dl (1.7-2.5); PHOSPHORUS 1.9 mg/dl (2.5-4.9); SODIUM 139 mmol/L (135-144)
[2018-05-05] MEDS ORDERED: POTASSIUM CHLORIDE 100 ML IVPB (10:00)
[2018-05-05] MEDS: SOD CHLORIDE 0.9% 1,000 ML IV ×2 (10:00→17:00)
[2018-05-05] MEDS: TPN 1,000 ML IV (11:58)
[2018-05-05] MEDS ORDERED: HYDROmorphONE 1 MG/ML SYG (12:21)
[2018-05-05] MEDS: OLANZAPINE (ODT) 5 MG TAB ODT ×2 (12:23→19:52)
[2018-05-05] MEDS: SODIUM PHOSPHATE 15 MMOL in SOD CHLORIDE 0.9% 250 ML IVPB (12:52)
[2018-05-05] MEDS: FAT EMULSION 20% 250 ML IV (16:20)
[2018-05-06] MEDS: HYDROmorphONE 1 MG/ML SYG IV ×6 (00:39→20:41)
[2018-05-06] MEDS: SOD CHLORIDE 0.9% 1,000 ML IV ×4 (00:41→22:05)
[2018-05-06] MEDS: DIPHENHYDRAMINE 50 MG INJ IV ×4 (01:42→19:36)
[2018-05-06] MEDS: TPN 1,000 ML IV ×3 (03:28→18:29)
[2018-05-06 05:02] LABS: ADD MAN DIFF? NO
[2018-05-06 05:12] LABS: ABNORMAL IP MESSAGE 1; BASOPHIL # 0.1 10^3/ul (0.0-0.1); BASOPHILS % 0.4 % (0.0-2.0); EOSINOPHILS # 0.4 10^3/ul (0.0-0.5); EOSINOPHILS % 2.7 % (0.0-7.0); HEMATOCRIT 33.9 % (42.0-52.0); HEMOGLOBIN 11.4 g/dl (14.0-18.0); LYMPHOCYTES # 2.5 10^3/ul (0.8-2.9); LYMPHOCYTES % 19.1 % (15.0-51.0); MEAN CORPUSCULAR HGB CONC 33.6 g/dl (32.0-37.0); MEAN CORPUSCULAR VOLUME 95.2 fl (82.0-101.0); MEAN PLATELET VOLUME 11.2 fl (7.4-10.4); MONOCYTE # 1.6 10^3/ul (0.3-0.9); MONOCYTES % 12.3 % (0.0-11.0); NEUTROPHIL # 8.5 10^3/ul (1.6-7.5); NEUTROPHILS % 65.1 % (39.0-77.0); PLATELET COUNT 327 10^3/UL (140-415); POSITIVE DIFF @See below; RED BLOOD COUNT 3.56 10^6/ul (4.70-6.10); RED CELL DISTRIBUTION WIDTH 16.3 % (11.5-14.5)
[2018-05-06] MEDS: PANTOPRAZOLE 40 MG INJ IV (05:26)
[2018-05-06 05:44] LABS: ANION GAP 21 (8-16); BLOOD UREA NITROGEN 69 mg/dl (7-20); CALCIUM 10.8 mg/dl (8.4-10.2); CARBON DIOXIDE 17 mmol/L (21-31); CHLORIDE 110 mmol/L (97-110); GLUCOSE 84 mg/dl (70-220); MAGNESIUM 2.2 mg/dl (1.7-2.5); POTASSIUM 4.8 mmol/L (3.5-5.1); SODIUM 143 mmol/L (135-144)
[2018-05-06] MEDS: ONDANSETRON 4 MG INJ IV (12:56)
[2018-05-06] MEDS: OLANZAPINE (ODT) 5 MG TAB ODT ×2 (16:50→22:05)
[2018-05-06] MEDS: FENTAnyl PATCH 12 MCG/HR TRANSDERM (18:30)
[2018-05-07] MEDS: HYDROmorphONE 1 MG/ML SYG IV ×6 (01:04→21:28)
[2018-05-07] MEDS: DIPHENHYDRAMINE 50 MG INJ IV ×4 (01:40→20:00)
[2018-05-07] MEDS: PANTOPRAZOLE 40 MG INJ IV (05:10)
[2018-05-07] MEDS: SOD CHLORIDE 0.9% 1,000 ML IV ×2 (05:10→13:24)
[2018-05-07 05:11] LABS: ADD MAN DIFF? NO
[2018-05-07 05:23] LABS: WHITE BLOOD COUNT 8.1 10^3/ul (4.8-10.8)
[2018-05-07 05:23] LABS: ABNORMAL IP MESSAGE 1; BASOPHILS % 0.5 % (0.0-2.0); EOSINOPHILS # 0.4 10^3/ul (0.0-0.5); EOSINOPHILS % 4.6 % (0.0-7.0); HEMATOCRIT 28.6 % (42.0-52.0); HEMOGLOBIN 9.4 g/dl (14.0-18.0); LYMPHOCYTES # 1.6 10^3/ul (0.8-2.9); MEAN CORPUSCULAR HEMOGLOBIN 31.6 pg (29.0-33.0); MEAN CORPUSCULAR HGB CONC 32.9 g/dl (32.0-37.0); MEAN CORPUSCULAR VOLUME 96.3 fl (82.0-101.0); MEAN PLATELET VOLUME 11.1 fl (7.4-10.4); MONOCYTE # 1.6 10^3/ul (0.3-0.9); MONOCYTES % 19.7 % (0.0-11.0); NEUTROPHIL # 4.4 10^3/ul (1.6-7.5); NEUTROPHILS % 54.8 % (39.0-77.0); PLATELET COUNT 290 10^3/UL (140-415); POSITIVE DIFF @See below; RED BLOOD COUNT 2.97 10^6/ul (4.70-6.10); RED CELL DISTRIBUTION WIDTH 16.5 % (11.5-14.5)
[2018-05-07 05:45] LABS: ANION GAP 18 (8-16); BLOOD UREA NITROGEN 51 mg/dl (7-20); CALCIUM 9.8 mg/dl (8.4-10.2); CARBON DIOXIDE 17 mmol/L (21-31); CHLORIDE 112 mmol/L (97-110); CREATININE 1.14 mg/dl (0.61-1.24); GLUCOSE 78 mg/dl (70-220); MAGNESIUM 1.7 mg/dl (1.7-2.5); PHOSPHORUS 3.7 mg/dl (2.5-4.9); POTASSIUM 4.5 mmol/L (3.5-5.1); SODIUM 142 mmol/L (135-144)
[2018-05-07] MEDS: TPN 1,000 ML IV ×4 (06:54→21:41)
[2018-05-07] MEDS: OLANZAPINE (ODT) 5 MG TAB ODT ×2 (17:30→21:39)
[2018-05-08] MEDS: HYDROmorphONE 1 MG/ML SYG IV ×6 (01:32→21:41)
[2018-05-08] MEDS: DIPHENHYDRAMINE 50 MG INJ IV ×4 (02:03→20:23)
[2018-05-08] MEDS: PANTOPRAZOLE 40 MG INJ IV (05:29)
[2018-05-08] MEDS: SOD CHLORIDE 0.9% 1,000 ML IV ×2 (05:34→21:45)
[2018-05-08 05:37] LABS: WHITE BLOOD COUNT 7.2 10^3/ul (4.8-10.8)
[2018-05-08 05:37] LABS: ABNORMAL IP MESSAGE 1; HEMATOCRIT 27.5 % (42.0-52.0); HEMOGLOBIN 9.1 g/dl (14.0-18.0); MEAN CORPUSCULAR HEMOGLOBIN 32.7 pg (29.0-33.0); MEAN CORPUSCULAR HGB CONC 33.1 g/dl (32.0-37.0); MEAN CORPUSCULAR VOLUME 98.9 fl (82.0-101.0); MEAN PLATELET VOLUME 11.1 fl (7.4-10.4); PLATELET COUNT 309 10^3/UL (140-415); POSITIVE DIFF @See below; RED BLOOD COUNT 2.78 10^6/ul (4.70-6.10); RED CELL DISTRIBUTION WIDTH 16.6 % (11.5-14.5)
[2018-05-08 05:42] LABS: ADD MAN DIFF? YES
[2018-05-08 06:00] LABS: TRIGLYCERIDES 83 mg/dl (0-149)
[2018-05-08 06:09] LABS: ALANINE AMINOTRANSFERASE 20 IU/L (13-69); ALBUMIN 3.9 g/dl (3.3-4.9); ALBUMIN/GLOBULIN RATIO 1.08; ALKALINE PHOSPHATASE 286 IU/L (42-121); ANION GAP 15 (8-16); ASPARTATE AMINO TRANSFERASE 28 IU/L (15-46); BILIRUBIN,INDIRECT 0.2 mg/dl (0-1.1); BILIRUBIN,TOTAL 0.2 mg/dl (0.2-1.3); BLOOD UREA NITROGEN 43 mg/dl (7-20); CALCIUM 9.1 mg/dl (8.4-10.2); CARBON DIOXIDE 20 mmol/L (21-31); CHLORIDE 112 mmol/L (97-110); CREATININE 0.99 mg/dl (0.61-1.24); GLUCOSE 106 mg/dl (70-220); SODIUM 143 mmol/L (135-144); TOTAL PROTEIN 7.5 g/dl (6.1-8.1)
[2018-05-08 06:26] LABS: MAGNESIUM 1.8 mg/dl (1.7-2.5)
[2018-05-08 06:26] LABS: PHOSPHORUS 4.9 mg/dl (2.5-4.9)
[2018-05-08 08:14] LABS: ANISOCYTOSIS 1+ (0-0); BAND NEUTROPHILS % (M) 1 % (0-4); EOSINOPHILS % (M) 1 % (0-7); GIANT THROMBO% (M) 8 % (0-0); LYMPHOCYTES #M 1.5 10^3/ul (0.8-2.9); LYMPHOCYTES % (M) 21 % (15-51); MONOCYTE #M 2.3 10^3/ul (0.3-0.9); MONOCYTES % (M) 32 % (0-11); PLATELET ESTIMATE NORMAL; POIKILOCYTOSIS 2+ (0-0); SEG NEUT #M 3.2 10^3/ul (1.6-7.5); SEGMENTED NEUTROPHILS (M) % 45 % (39-77); SMUDGE%M 9 % (0-0)
[2018-05-08] MEDS: TPN 1,000 ML IV ×2 (08:20→21:06)
[2018-05-08] MEDS: OLANZAPINE (ODT) 5 MG TAB ODT ×2 (18:01→20:23)
[2018-05-08] MEDS: ONDANSETRON 4 MG INJ IV (23:01)
[2018-05-09] MEDS: HYDROmorphONE 1 MG/ML SYG IV ×4 (01:41→22:07)
[2018-05-09] MEDS: DIPHENHYDRAMINE 50 MG INJ IV ×4 (02:48→20:51)
[2018-05-09] MEDS: PANTOPRAZOLE 40 MG INJ IV (06:12)
[2018-05-09] MEDS: HYDROmorphONE 0.5 MG/0.5 ML SYG IV (06:13)
[2018-05-09 07:47] LABS: ADD MAN DIFF? NO
[2018-05-09 07:57] LABS: WHITE BLOOD COUNT 5.9 10^3/ul (4.8-10.8)
[2018-05-09 07:57] LABS: BASOPHIL # 0.1 10^3/ul (0.0-0.1); BASOPHILS % 1.2 % (0.0-2.0); EOSINOPHILS # 0.3 10^3/ul (0.0-0.5); EOSINOPHILS % 4.4 % (0.0-7.0); HEMATOCRIT 37.6 % (42.0-52.0); HEMOGLOBIN 12.6 g/dl (14.0-18.0); LYMPHOCYTES # 1.4 10^3/ul (0.8-2.9); LYMPHOCYTES % 23.2 % (15.0-51.0); MEAN CORPUSCULAR HEMOGLOBIN 32.7 pg (29.0-33.0); MEAN CORPUSCULAR HGB CONC 33.5 g/dl (32.0-37.0); MEAN CORPUSCULAR VOLUME 97.7 fl (82.0-101.0); MEAN PLATELET VOLUME 11.1 fl (7.4-10.4); MONOCYTE # 1.5 10^3/ul (0.3-0.9); MONOCYTES % 24.5 % (0.0-11.0); NEUTROPHIL # 2.7 10^3/ul (1.6-7.5); PLATELET COUNT 291 10^3/UL (140-415); RED BLOOD COUNT 3.85 10^6/ul (4.70-6.10); RED CELL DISTRIBUTION WIDTH 16.6 % (11.5-14.5)
[2018-05-09 08:21] LABS: ANION GAP 17 (8-16); BLOOD UREA NITROGEN 48 mg/dl (7-20); CALCIUM 9.4 mg/dl (8.4-10.2); CARBON DIOXIDE 20 mmol/L (21-31); CHLORIDE 108 mmol/L (97-110); CREATININE 1.15 mg/dl (0.61-1.24); GLUCOSE 91 mg/dl (70-220); PHOSPHORUS 3.3 mg/dl (2.5-4.9); POTASSIUM 4.2 mmol/L (3.5-5.1); SODIUM 141 mmol/L (135-144)
[2018-05-09] MEDS: TPN 1,000 ML IV ×2 (08:36→20:50)
[2018-05-09] MEDS: SOD CHLORIDE 0.9% 1,000 ML IV (12:54)
[2018-05-09] MEDS: OLANZAPINE (ODT) 5 MG TAB ODT ×2 (14:45→21:05)
[2018-05-09] MEDS: FAT EMULSION 20% 250 ML IV (15:48)
[2018-05-09] MEDS: FENTAnyl PATCH 12 MCG/HR TRANSDERM (16:35)
[2018-05-10] MEDS: HYDROmorphONE 1 MG/ML SYG IV ×6 (01:57→22:26)
[2018-05-10] MEDS: DIPHENHYDRAMINE 50 MG INJ IV ×4 (02:55→21:12)
[2018-05-10] MEDS: PANTOPRAZOLE 40 MG INJ IV (06:10)
[2018-05-10] MEDS: SOD CHLORIDE 0.9% 1,000 ML IV ×2 (06:16→22:35)
[2018-05-10 07:28] LABS: ANION GAP 15 (8-16); BLOOD UREA NITROGEN 51 mg/dl (7-20); CALCIUM 9.8 mg/dl (8.4-10.2); CARBON DIOXIDE 21 mmol/L (21-31); CHLORIDE 109 mmol/L (97-110); CREATININE 1.15 mg/dl (0.61-1.24); GLUCOSE 76 mg/dl (70-220); MAGNESIUM 2.3 mg/dl (1.7-2.5); PHOSPHORUS 2.5 mg/dl (2.5-4.9); POTASSIUM 4.9 mmol/L (3.5-5.1); SODIUM 140 mmol/L (135-144)
[2018-05-10] MEDS: ONDANSETRON 4 MG INJ IV (09:13)
[2018-05-10] MEDS: TPN 1,000 ML IV ×2 (10:23→22:26)
[2018-05-10] MEDS: OLANZAPINE (ODT) 5 MG TAB ODT (21:14)
[2018-05-11] MEDS: HYDROmorphONE 1 MG/ML SYG IV ×6 (02:43→22:58)
[2018-05-11] MEDS: DIPHENHYDRAMINE 50 MG INJ IV ×4 (03:15→21:40)
[2018-05-11] MEDS: PANTOPRAZOLE 40 MG INJ IV (06:41)
[2018-05-11 07:38] LABS: ANION GAP 17 (8-16); BLOOD UREA NITROGEN 62 mg/dl (7-20); CALCIUM 10.2 mg/dl (8.4-10.2); CARBON DIOXIDE 21 mmol/L (21-31); CHLORIDE 110 mmol/L (97-110); CREATININE 1.47 mg/dl (0.61-1.24); GLUCOSE 74 mg/dl (70-220); MAGNESIUM 2.5 mg/dl (1.7-2.5); PHOSPHORUS 3.2 mg/dl (2.5-4.9); POTASSIUM 5.1 mmol/L (3.5-5.1); SODIUM 143 mmol/L (135-144)
[2018-05-11] MEDS: TPN 1,000 ML IV (12:02)
[2018-05-11] MEDS: OLANZAPINE (ODT) 5 MG TAB ODT ×2 (14:04→22:53)
[2018-05-11] MEDS: SOD CHLORIDE 0.9% 1,000 ML IV ×2 (14:05→22:54)
[2018-05-12] MEDS: TPN 1,000 ML IV ×4 (01:18→20:27)
[2018-05-12] MEDS: HYDROmorphONE 1 MG/ML SYG IV ×6 (02:54→22:35)
[2018-05-12] MEDS: DIPHENHYDRAMINE 50 MG INJ IV ×4 (03:45→21:52)
[2018-05-12] MEDS: PANTOPRAZOLE 40 MG INJ IV (06:47)
[2018-05-12] MEDS: SOD CHLORIDE 0.9% 1,000 ML IV ×4 (08:37→22:36)
[2018-05-12 10:10] LABS: ADD MAN DIFF? NO
[2018-05-12 10:13] LABS: WHITE BLOOD COUNT 9.1 10^3/ul (4.8-10.8)
[2018-05-12 10:13] LABS: BASOPHIL # 0.1 10^3/ul (0.0-0.1); BASOPHILS % 0.9 % (0.0-2.0); EOSINOPHILS # 0.3 10^3/ul (0.0-0.5); EOSINOPHILS % 3.5 % (0.0-7.0); HEMATOCRIT 30.7 % (42.0-52.0); HEMOGLOBIN 10.1 g/dl (14.0-18.0); LYMPHOCYTES # 3.3 10^3/ul (0.8-2.9); MEAN CORPUSCULAR HEMOGLOBIN 32.8 pg (29.0-33.0); MEAN CORPUSCULAR HGB CONC 32.9 g/dl (32.0-37.0); MEAN CORPUSCULAR VOLUME 99.7 fl (82.0-101.0); MEAN PLATELET VOLUME 10.8 fl (7.4-10.4); MONOCYTE # 1.4 10^3/ul (0.3-0.9); MONOCYTES % 15.6 % (0.0-11.0); NEUTROPHIL # 3.9 10^3/ul (1.6-7.5); NEUTROPHILS % 43.4 % (39.0-77.0); PLATELET COUNT 400 10^3/UL (140-415); RED BLOOD COUNT 3.08 10^6/ul (4.70-6.10); RED CELL DISTRIBUTION WIDTH 16.9 % (11.5-14.5)
[2018-05-12 10:34] LABS: ANION GAP 15 (8-16); BLOOD UREA NITROGEN 61 mg/dl (7-20); CALCIUM 9.7 mg/dl (8.4-10.2); CARBON DIOXIDE 21 mmol/L (21-31); CHLORIDE 110 mmol/L (97-110); CREATININE 1.34 mg/dl (0.61-1.24); GLUCOSE 83 mg/dl (70-220); MAGNESIUM 2.1 mg/dl (1.7-2.5); PHOSPHORUS 3.5 mg/dl (2.5-4.9); POTASSIUM 4.5 mmol/L (3.5-5.1); SODIUM 141 mmol/L (135-144)
[2018-05-12] MEDS: OLANZAPINE (ODT) 5 MG TAB ODT ×2 (14:39→22:35)
[2018-05-12] MEDS: FENTAnyl PATCH 12 MCG/HR TRANSDERM (17:06)
[2018-05-13] MEDS: TPN 1,000 ML IV ×3 (00:55→17:45)
[2018-05-13] MEDS: HYDROmorphONE 1 MG/ML SYG IV ×6 (02:38→23:06)
[2018-05-13] MEDS: DIPHENHYDRAMINE 50 MG INJ IV ×4 (03:52→22:20)
[2018-05-13] MEDS: PANTOPRAZOLE 40 MG INJ IV (05:32)
[2018-05-13] MEDS: SOD CHLORIDE 0.9% 1,000 ML IV ×3 (05:32→20:52)
[2018-05-13 07:25] LABS: ANION GAP 12 (8-16); BLOOD UREA NITROGEN 51 mg/dl (7-20); CALCIUM 9.3 mg/dl (8.4-10.2); CARBON DIOXIDE 20 mmol/L (21-31); CHLORIDE 112 mmol/L (97-110); CREATININE 1.18 mg/dl (0.61-1.24); GLUCOSE 61 mg/dl (70-220); MAGNESIUM 1.9 mg/dl (1.7-2.5); PHOSPHORUS 3.3 mg/dl (2.5-4.9); POTASSIUM 4.3 mmol/L (3.5-5.1); SODIUM 140 mmol/L (135-144)
[2018-05-13] MEDS: FAT EMULSION 20% 250 ML IV (16:17)
[2018-05-13] MEDS: OLANZAPINE (ODT) 5 MG TAB ODT (22:23)
[2018-05-14] MEDS: TPN 1,000 ML IV ×2 (00:47→14:15)
[2018-05-14] MEDS: HYDROmorphONE 1 MG/ML SYG IV ×5 (03:11→21:09)
[2018-05-14] MEDS: DIPHENHYDRAMINE 50 MG INJ IV ×4 (04:21→22:47)
[2018-05-14] MEDS: SOD CHLORIDE 0.9% 1,000 ML IV ×4 (05:36→22:48)
[2018-05-14] MEDS: PANTOPRAZOLE 40 MG INJ IV (05:36)
[2018-05-14 06:48] LABS: ANION GAP 15 (8-16); BLOOD UREA NITROGEN 40 mg/dl (7-20); CARBON DIOXIDE 18 mmol/L (21-31); CHLORIDE 112 mmol/L (97-110); GLUCOSE 57 mg/dl (70-220); MAGNESIUM 1.8 mg/dl (1.7-2.5); PHOSPHORUS 3.9 mg/dl (2.5-4.9); POTASSIUM 3.8 mmol/L (3.5-5.1); SODIUM 141 mmol/L (135-144)
[2018-05-14] MEDS: OLANZAPINE (ODT) 5 MG TAB ODT (21:11)
[2018-05-15] MEDS: HYDROmorphONE 1 MG/ML SYG IV ×6 (01:02→21:34)
[2018-05-15] MEDS: TPN 1,000 ML IV ×3 (01:33→13:39)
[2018-05-15] MEDS: DIPHENHYDRAMINE 50 MG INJ IV ×4 (05:06→23:09)
[2018-05-15] MEDS: SOD CHLORIDE 0.9% 1,000 ML IV ×3 (05:07→23:10)
[2018-05-15] MEDS: PANTOPRAZOLE 40 MG INJ IV (05:07)
[2018-05-15 05:46] LABS: ADD MAN DIFF? NO
[2018-05-15 06:12] LABS: WHITE BLOOD COUNT 6.2 10^3/ul (4.8-10.8)
[2018-05-15 06:12] LABS: BASOPHIL # 0.1 10^3/ul (0.0-0.1); EOSINOPHILS # 0.2 10^3/ul (0.0-0.5); EOSINOPHILS % 3.2 % (0.0-7.0); HEMATOCRIT 24.7 % (42.0-52.0); HEMOGLOBIN 7.9 g/dl (14.0-18.0); LYMPHOCYTES # 1.9 10^3/ul (0.8-2.9); LYMPHOCYTES % 30.1 % (15.0-51.0); MEAN CORPUSCULAR HEMOGLOBIN 32.1 pg (29.0-33.0); MEAN CORPUSCULAR VOLUME 100.4 fl (82.0-101.0); MEAN PLATELET VOLUME 10.7 fl (7.4-10.4); MONOCYTES % 16.5 % (0.0-11.0); NEUTROPHILS % 48.9 % (39.0-77.0); PLATELET COUNT 306 10^3/UL (140-415); RED BLOOD COUNT 2.46 10^6/ul (4.70-6.10); RED CELL DISTRIBUTION WIDTH 16.9 % (11.5-14.5)
[2018-05-15 07:10] LABS: ANION GAP 11 (8-16); BLOOD UREA NITROGEN 34 mg/dl (7-20); CALCIUM 8.9 mg/dl (8.4-10.2); CARBON DIOXIDE 18 mmol/L (21-31); CHLORIDE 116 mmol/L (97-110); CREATININE 0.91 mg/dl (0.61-1.24); GLUCOSE 65 mg/dl (70-220); MAGNESIUM 1.8 mg/dl (1.7-2.5); PHOSPHORUS 3.4 mg/dl (2.5-4.9); POTASSIUM 3.5 mmol/L (3.5-5.1); SODIUM 141 mmol/L (135-144)
[2018-05-15] MEDS: OLANZAPINE (ODT) 5 MG TAB ODT ×2 (11:00→21:28)
[2018-05-15] MEDS: ONDANSETRON 4 MG INJ IV (13:42)
[2018-05-15] MEDS: FENTAnyl PATCH 12 MCG/HR TRANSDERM (17:08)
[2018-05-16] MEDS: HYDROmorphONE 1 MG/ML SYG IV ×6 (01:32→21:45)
[2018-05-16] MEDS: TPN 1,000 ML IV ×2 (01:35→13:32)
[2018-05-16] MEDS: PANTOPRAZOLE 40 MG INJ IV (05:15)
[2018-05-16] MEDS: DIPHENHYDRAMINE 50 MG INJ IV ×4 (05:15→23:15)
[2018-05-16 07:07] LABS: TRIGLYCERIDES 73 mg/dl (0-149)
[2018-05-16 07:14] LABS: PREALBUMIN 25.8 mg/dl (17.6-36.0)
[2018-05-16 07:50] LABS: ANION GAP 12 (8-16); BLOOD UREA NITROGEN 31 mg/dl (7-20); CALCIUM 8.9 mg/dl (8.4-10.2); CARBON DIOXIDE 19 mmol/L (21-31); CHLORIDE 113 mmol/L (97-110); CREATININE 0.91 mg/dl (0.61-1.24); GLUCOSE 82 mg/dl (70-220); MAGNESIUM 1.9 mg/dl (1.7-2.5); PHOSPHORUS 3.8 mg/dl (2.5-4.9); POTASSIUM 3.1 mmol/L (3.5-5.1); SODIUM 141 mmol/L (135-144)
[2018-05-16] MEDS: SOD CHLORIDE 0.9% 1,000 ML IV ×2 (09:59→19:32)
[2018-05-16] MEDS: FAT EMULSION 20% 250 ML IV (16:23)
[2018-05-16] MEDS: ONDANSETRON 4 MG INJ IV (20:53)
[2018-05-16] MEDS: OLANZAPINE (ODT) 5 MG TAB ODT (21:46)
[2018-05-17] MEDS: TPN 1,000 ML IV ×3 (00:39→20:25)
[2018-05-17] MEDS: HYDROmorphONE 1 MG/ML SYG IV ×6 (01:54→22:32)
[2018-05-17] MEDS: PANTOPRAZOLE 40 MG INJ IV (05:13)
[2018-05-17] MEDS: DIPHENHYDRAMINE 50 MG INJ IV ×4 (05:16→23:25)
[2018-05-17] MEDS: SOD CHLORIDE 0.9% 1,000 ML IV ×3 (05:22→16:52)
[2018-05-17 06:28] LABS: ANION GAP 10 (8-16); BLOOD UREA NITROGEN 32 mg/dl (7-20); CALCIUM 8.4 mg/dl (8.4-10.2); CARBON DIOXIDE 20 mmol/L (21-31); CHLORIDE 113 mmol/L (97-110); GLUCOSE 80 mg/dl (70-220); PHOSPHORUS 3.3 mg/dl (2.5-4.9); SODIUM 140 mmol/L (135-144)
[2018-05-17] MEDS: ONDANSETRON 4 MG INJ IV ×2 (07:22→20:34)
[2018-05-17] MEDS: POTASSIUM CHLORIDE 100 ML IVPB (10:13)
[2018-05-17] MEDS ORDERED: HYDROmorphONE 2 MG TAB PO (12:00)
[2018-05-17] MEDS ORDERED: TPN 1,000 ML IV (13:00)
[2018-05-17] MEDS: OLANZAPINE (ODT) 5 MG TAB ODT ×2 (14:35→23:30)
[2018-05-17] MEDS: ACCU-CHEK XX ×2 (20:00→23:00)
[2018-05-18] MEDS: ACCU-CHEK XX ×8 (02:00→23:00)
[2018-05-18] MEDS: HYDROmorphONE 1 MG/ML SYG IV ×3 (02:34→11:02)
[2018-05-18] MEDS: TPN 1,000 ML IV ×2 (02:37→21:23)
[2018-05-18] MEDS: SOD CHLORIDE 0.9% 1,000 ML IV (02:44)
[2018-05-18] MEDS: PANTOPRAZOLE 40 MG INJ IV (05:34)
[2018-05-18] MEDS: DIPHENHYDRAMINE 50 MG INJ IV ×3 (05:34→23:33)
[2018-05-18 05:57] LABS: ADD MAN DIFF? NO
[2018-05-18 06:07] LABS: ABNORMAL IP MESSAGE 1; BASOPHIL # 0.1 10^3/ul (0.0-0.1); BASOPHILS % 0.6 % (0.0-2.0); EOSINOPHILS # 0.2 10^3/ul (0.0-0.5); HEMATOCRIT 23.3 % (42.0-52.0); HEMOGLOBIN 7.6 g/dl (14.0-18.0); LYMPHOCYTES # 1.5 10^3/ul (0.8-2.9); LYMPHOCYTES % 13.9 % (15.0-51.0); MEAN CORPUSCULAR HEMOGLOBIN 32.6 pg (29.0-33.0); MEAN CORPUSCULAR HGB CONC 32.6 g/dl (32.0-37.0); MEAN PLATELET VOLUME 10.7 fl (7.4-10.4); MONOCYTE # 1.7 10^3/ul (0.3-0.9); MONOCYTES % 15.4 % (0.0-11.0); NEUTROPHIL # 7.4 10^3/ul (1.6-7.5); NEUTROPHILS % 67.7 % (39.0-77.0); PLATELET COUNT 273 10^3/UL (140-415); POSITIVE DIFF @See below; RED BLOOD COUNT 2.33 10^6/ul (4.70-6.10); RED CELL DISTRIBUTION WIDTH 17.4 % (11.5-14.5)
[2018-05-18 06:07] LABS: WHITE BLOOD COUNT 10.9 10^3/ul (4.8-10.8)
[2018-05-18 06:29] LABS: ANION GAP 10 (8-16); BLOOD UREA NITROGEN 41 mg/dl (7-20); CALCIUM 8.5 mg/dl (8.4-10.2); CARBON DIOXIDE 21 mmol/L (21-31); CHLORIDE 117 mmol/L (97-110); CREATININE 0.84 mg/dl (0.61-1.24); PHOSPHORUS 2.6 mg/dl (2.5-4.9); SODIUM 144 mmol/L (135-144)
[2018-05-18 06:34] LABS: GLUCOSE 50 mg/dl (70-220)
[2018-05-18] MEDS: SOD CHLORIDE 0.45% 1,000 ML IV ×2 (09:04→17:29)
[2018-05-18] MEDS: HYDROmorphONE 2 MG/ML SYG IV ×3 (14:49→23:04)
[2018-05-18] MEDS: FENTAnyl PATCH 12 MCG/HR TRANSDERM (17:30)
[2018-05-18] MEDS: OLANZAPINE (ODT) 5 MG TAB ODT ×2 (19:08→23:34)
[2018-05-18] MEDS: ONDANSETRON 4 MG INJ IV (21:37)
[2018-05-19] MEDS: SOD CHLORIDE 0.45% 1,000 ML IV ×4 (00:49→18:53)
[2018-05-19] MEDS: ACCU-CHEK XX ×8 (02:00→23:00)
[2018-05-19] MEDS: TPN 1,000 ML IV ×2 (02:39→20:49)
[2018-05-19] MEDS: HYDROmorphONE 2 MG/ML SYG IV ×6 (03:08→22:52)
[2018-05-19] MEDS: DIPHENHYDRAMINE 50 MG INJ IV ×5 (05:36→23:30)
[2018-05-19] MEDS: PANTOPRAZOLE 40 MG INJ IV (05:37)
[2018-05-19 05:39] LABS: ADD MAN DIFF? NO
[2018-05-19 05:48] LABS: WHITE BLOOD COUNT 10.7 10^3/ul (4.8-10.8)
[2018-05-19 05:48] LABS: ABNORMAL IP MESSAGE 1; BASOPHIL # 0.1 10^3/ul (0.0-0.1); BASOPHILS % 0.5 % (0.0-2.0); EOSINOPHILS # 0.2 10^3/ul (0.0-0.5); EOSINOPHILS % 1.7 % (0.0-7.0); HEMATOCRIT 23.6 % (42.0-52.0); HEMOGLOBIN 7.5 g/dl (14.0-18.0); LYMPHOCYTES # 1.7 10^3/ul (0.8-2.9); MEAN CORPUSCULAR HEMOGLOBIN 32.1 pg (29.0-33.0); MEAN CORPUSCULAR HGB CONC 31.8 g/dl (32.0-37.0); MEAN CORPUSCULAR VOLUME 100.9 fl (82.0-101.0); MONOCYTE # 1.7 10^3/ul (0.3-0.9); MONOCYTES % 15.7 % (0.0-11.0); NEUTROPHILS % 65.7 % (39.0-77.0); PLATELET COUNT 283 10^3/UL (140-415); POSITIVE DIFF @See below; RED BLOOD COUNT 2.34 10^6/ul (4.70-6.10); RED CELL DISTRIBUTION WIDTH 17.6 % (11.5-14.5)
[2018-05-19 06:15] LABS: ANION GAP 11 (8-16); BLOOD UREA NITROGEN 41 mg/dl (7-20); CALCIUM 8.2 mg/dl (8.4-10.2); CARBON DIOXIDE 25 mmol/L (21-31); CHLORIDE 108 mmol/L (97-110); CREATININE 0.86 mg/dl (0.61-1.24); GLUCOSE 82 mg/dl (70-220); PHOSPHORUS 3.1 mg/dl (2.5-4.9); POTASSIUM 3.7 mmol/L (3.5-5.1); SODIUM 140 mmol/L (135-144)
[2018-05-19] MEDS: OLANZAPINE (ODT) 5 MG TAB ODT (20:48)
[2018-05-20] MEDS: ACCU-CHEK XX ×6 (02:00→23:00)
[2018-05-20] MEDS: HYDROmorphONE 2 MG/ML SYG IV ×6 (02:52→22:57)
[2018-05-20] MEDS: TPN 1,000 ML IV ×2 (02:53→21:48)
[2018-05-20] MEDS: SOD CHLORIDE 0.45% 1,000 ML IV ×3 (05:16→19:00)
[2018-05-20] MEDS: PANTOPRAZOLE 40 MG INJ IV (05:30)
[2018-05-20] MEDS: DIPHENHYDRAMINE 50 MG INJ IV ×4 (05:30→23:37)
[2018-05-20 07:24] LABS: PHOSPHORUS 3.5 mg/dl (2.5-4.9)
[2018-05-20 07:25] LABS: ANION GAP 10 (8-16); BLOOD UREA NITROGEN 42 mg/dl (7-20); CALCIUM 8.4 mg/dl (8.4-10.2); CARBON DIOXIDE 28 mmol/L (21-31); CHLORIDE 106 mmol/L (97-110); CREATININE 0.85 mg/dl (0.61-1.24); GLUCOSE 58 mg/dl (70-220); POTASSIUM 4.1 mmol/L (3.5-5.1); SODIUM 140 mmol/L (135-144)
[2018-05-20] MEDS: FAT EMULSION 20% 250 ML IV (17:05)
[2018-05-20] MEDS: OLANZAPINE (ODT) 5 MG TAB ODT (21:44)
[2018-05-21] MEDS: TPN 1,000 ML IV ×4 (02:00→21:12)
[2018-05-21] MEDS: HYDROmorphONE 2 MG/ML SYG IV ×6 (02:51→22:42)
[2018-05-21] MEDS: SOD CHLORIDE 0.45% 1,000 ML IV ×3 (02:52→20:22)
[2018-05-21] MEDS: ACCU-CHEK XX ×4 (05:00→23:00)
[2018-05-21] MEDS: DIPHENHYDRAMINE 50 MG INJ IV ×4 (05:36→23:36)
[2018-05-21] MEDS: PANTOPRAZOLE 40 MG INJ IV (05:36)
[2018-05-21 06:35] LABS: ANION GAP 12 (8-16); BLOOD UREA NITROGEN 39 mg/dl (7-20); CALCIUM 8.6 mg/dl (8.4-10.2); CARBON DIOXIDE 26 mmol/L (21-31); CHLORIDE 104 mmol/L (97-110); CREATININE 0.97 mg/dl (0.61-1.24); GLUCOSE 62 mg/dl (70-220); PHOSPHORUS 3.1 mg/dl (2.5-4.9); POTASSIUM 4.2 mmol/L (3.5-5.1); SODIUM 138 mmol/L (135-144)
[2018-05-21] MEDS: OLANZAPINE (ODT) 5 MG TAB ODT ×2 (14:53→21:14)
[2018-05-21] MEDS: FENTAnyl PATCH 12 MCG/HR TRANSDERM (17:21)
[2018-05-21] MEDS: ONDANSETRON 4 MG INJ IV (21:13)
[2018-05-22] MEDS: HYDROmorphONE 2 MG/ML SYG IV ×6 (02:42→22:56)
[2018-05-22] MEDS: TPN 1,000 ML IV ×2 (03:42→20:46)
[2018-05-22] MEDS: SOD CHLORIDE 0.45% 1,000 ML IV ×3 (03:44→18:54)
[2018-05-22] MEDS: ONDANSETRON 4 MG INJ IV (04:27)
[2018-05-22] MEDS: ACCU-CHEK XX ×4 (05:00→23:10)
[2018-05-22] MEDS: PANTOPRAZOLE 40 MG INJ IV (05:17)
[2018-05-22] MEDS: DIPHENHYDRAMINE 50 MG INJ IV ×4 (05:38→23:54)
[2018-05-22 11:37] LABS: ANION GAP 11 (8-16); BLOOD UREA NITROGEN 35 mg/dl (7-20); CALCIUM 8.5 mg/dl (8.4-10.2); CARBON DIOXIDE 24 mmol/L (21-31); CHLORIDE 105 mmol/L (97-110); CREATININE 0.87 mg/dl (0.61-1.24); GLUCOSE 91 mg/dl (70-220); POTASSIUM 4.2 mmol/L (3.5-5.1); SODIUM 136 mmol/L (135-144)
[2018-05-22] MEDS: OLANZAPINE (ODT) 5 MG TAB ODT (20:46)
[2018-05-23] MEDS: SOD CHLORIDE 0.45% 1,000 ML IV ×2 (02:51→11:51)
[2018-05-23] MEDS: HYDROmorphONE 2 MG/ML SYG IV ×5 (02:54→18:55)
[2018-05-23] MEDS: TPN 1,000 ML IV (03:07)
[2018-05-23] MEDS: ACCU-CHEK XX ×3 (05:27→17:23)
[2018-05-23] MEDS: PANTOPRAZOLE 40 MG INJ IV (05:56)
[2018-05-23] MEDS: DIPHENHYDRAMINE 50 MG INJ IV ×3 (05:56→17:57)
[2018-05-23 07:09] LABS: ANION GAP 12 (8-16); BLOOD UREA NITROGEN 46 mg/dl (7-20); CALCIUM 8.7 mg/dl (8.4-10.2); CARBON DIOXIDE 36 mmol/L (21-31); CHLORIDE 101 mmol/L (97-110); CREATININE 0.96 mg/dl (0.61-1.24); GLUCOSE 65 mg/dl (70-220); MAGNESIUM 2.3 mg/dl (1.7-2.5); POTASSIUM 3.7 mmol/L (3.5-5.1); SODIUM 145 mmol/L (135-144)
[2018-05-23] MEDS: FAT EMULSION 20% 250 ML IV (16:00)
[2018-05-23] MEDS: OLANZAPINE (ODT) 5 MG TAB ODT (20:24)
== END 2018-05-23 20:30 | disposition home or self-care (01) | DRG 871 ==
LOC: PP2 05-16 22:20 → E/R 17:24 → PP2 04-25 18:26 → MS4 23:54
PROC: 30233N1 Transfusion of Nonautologous Red Blood Cells into Peripheral Vein, Percutaneous Approach (ICD-10-PCS; principal; 2018-04-23)
DX: A41.9 Sepsis, unspecified organism (principal); R65.21 Severe sepsis with septic shock; E43 Unspecified severe protein-calorie malnutrition; G92 Toxic encephalopathy; R57.1 Hypovolemic shock; N17.9 Acute kidney failure, unspecified; Z68.1 Body mass index [BMI] 19.9 or less, adult; K91.2 Postsurgical malabsorption, not elsewhere classified; B49 Unspecified mycosis; E87.3 Alkalosis; E87.6 Hypokalemia; I12.9 Hypertensive chronic kidney disease with stage 1 through stage 4 chronic kidney disease, or unspecified chronic kidney disease; N18.9 Chronic kidney disease, unspecified; F20.9 Schizophrenia, unspecified; Z93.1 Gastrostomy status; L29.9 Pruritus, unspecified; D64.9 Anemia, unspecified; G89.21 Chronic pain due to trauma; E87.8 Other disorders of electrolyte and fluid balance, not elsewhere classified
CPT/HCPCS: 36415; 36430; 71045; 74176; 80048; 80053; 81001; 81003; 82043; 82436; 82962; 83605; 83690; 83735; 84100; 84134; 84155; 84300; 84478; 84484; 85025; 85610; 85730; 86850; 86900; 86901; 86920; 87040; 87081; 87086; 93005; 96365; 96366; 96368; 96372; 96375; 96376; 97161; 99291-25

== ENCOUNTER 2018-05-26 10:13 | Inpatient (IN) | payer BC ==
[2018-05-26] MEDS: ACCU-CHEK XX ×2 (08:09→21:00)
[2018-05-26] MEDS: ONDANSETRON 4 MG INJ IV (10:44)
[2018-05-26] MEDS: HYDROmorphONE 1 MG/ML SYG IV (10:44)
[2018-05-26] MEDS: SODIUM CHLORIDE 0.9% 1L BAG IV* (10:45)
[2018-05-26 10:52] LABS: ADD MAN DIFF? NO
[2018-05-26 10:54] LABS: WHITE BLOOD COUNT 13.1 10^3/ul (4.8-10.8)
[2018-05-26 10:54] LABS: ABNORMAL IP MESSAGE 1; BASOPHIL # 0.1 10^3/ul (0.0-0.1); BASOPHILS % 0.5 % (0.0-2.0); HEMATOCRIT 37.3 % (42.0-52.0); HEMOGLOBIN 12.8 g/dl (14.0-18.0); LYMPHOCYTES # 3.8 10^3/ul (0.8-2.9); LYMPHOCYTES % 28.5 % (15.0-51.0); MEAN CORPUSCULAR HEMOGLOBIN 32.9 pg (29.0-33.0); MEAN CORPUSCULAR HGB CONC 34.3 g/dl (32.0-37.0); MEAN CORPUSCULAR VOLUME 95.9 fl (82.0-101.0); MEAN PLATELET VOLUME 10.7 fl (7.4-10.4); MONOCYTE # 2.4 10^3/ul (0.3-0.9); MONOCYTES % 18.3 % (0.0-11.0); NEUTROPHIL # 6.9 10^3/ul (1.6-7.5); NEUTROPHILS % 52.5 % (39.0-77.0); PLATELET COUNT 521 10^3/UL (140-415); POSITIVE DIFF @See below; RED BLOOD COUNT 3.89 10^6/ul (4.70-6.10); RED CELL DISTRIBUTION WIDTH 16.2 % (11.5-14.5)
[2018-05-26 10:58] LABS: LACTIC ACID 1.8 mmol/L (0.5-2.0)
[2018-05-26 11:00] LABS: ALANINE AMINOTRANSFERASE 21 IU/L (13-69); ALBUMIN 5.4 g/dl (3.3-4.9); ALKALINE PHOSPHATASE 403 IU/L (42-121); ASPARTATE AMINO TRANSFERASE 40 IU/L (15-46); BILIRUBIN,INDIRECT 0.3 mg/dl (0-1.1); BILIRUBIN,TOTAL 0.3 mg/dl (0.2-1.3); CALCIUM 8.5 mg/dl (8.4-10.2); CHLORIDE 55 mmol/L (97-110); CREATININE 4.62 mg/dl (0.61-1.24); GLUCOSE 98 mg/dl (70-220); POTASSIUM 4.7 mmol/L (3.5-5.1); SODIUM 140 mmol/L (135-144); TOTAL PROTEIN 10.8 g/dl (6.1-8.1)
[2018-05-26] MEDS: DIPHENHYDRAMINE 50 MG INJ IV ×2 (11:03→16:55)
[2018-05-26 11:14] LABS: BLOOD UREA NITROGEN 141 mg/dl (7-20)
[2018-05-26 11:16] LABS: ANION GAP 35 (8-16); CARBON DIOXIDE 55 mmol/L (21-31)
[2018-05-26] MEDS: CEFTRIAXONE 1 GM/50 ML (PMX) 50 ML IVPB (11:31)
[2018-05-26] MEDS: AZITHROMYCIN 500MG/NS (PMX) 250 ML IV (12:10)
[2018-05-26] MEDS ORDERED: ACETAMINOPHEN 325 MG TAB PO ×2 (12:30→13:30)
[2018-05-26] MEDS ORDERED: ONDANSETRON 4 MG INJ IV ×2 (12:30→13:30)
[2018-05-26] MEDS ORDERED: NACL 0.9% 3 ML SYG IV (13:30)
[2018-05-26] MEDS: SOD CHLORIDE 0.9% 1,000 ML IV ×6 (13:40→22:43)
[2018-05-26] MEDS: HEPARIN 5,000 UNIT/0.5 ML VIAL SC ×2 (13:50→21:37)
[2018-05-26] MEDS ORDERED: LORAZEPAM 0.5 MG TAB PO (14:00)
[2018-05-26] MEDS ORDERED: DIPHENHYDRAMINE 25 MG CAP PO (14:00)
[2018-05-26] MEDS ORDERED: ALBUTEROL/IPRATROPIUM (NEB) 3 ML AMP HHN (14:30)
[2018-05-26 14:55] LABS: LACTIC ACID 1.4 mmol/L (0.5-2.0)
[2018-05-26 15:33] LABS: ALANINE AMINOTRANSFERASE 19 IU/L (13-69); ALBUMIN 3.4 g/dl (3.3-4.9); ALBUMIN/GLOBULIN RATIO 0.97; ALKALINE PHOSPHATASE 248 IU/L (42-121); ASPARTATE AMINO TRANSFERASE 31 IU/L (15-46); BILIRUBIN,INDIRECT 0.1 mg/dl (0-1.1); BILIRUBIN,TOTAL 0.1 mg/dl (0.2-1.3); BLOOD UREA NITROGEN 120 mg/dl (7-20); CALCIUM 6.8 mg/dl (8.4-10.2); CHLORIDE 80 mmol/L (97-110); CREATININE 3.29 mg/dl (0.61-1.24); GLUCOSE 112 mg/dl (70-220); PHOSPHORUS 4.9 mg/dl (2.5-4.9); POTASSIUM 3.2 mmol/L (3.5-5.1); SODIUM 139 mmol/L (135-144); TOTAL PROTEIN 6.9 g/dl (6.1-8.1); TRIGLYCERIDES 111 mg/dl (0-149)
[2018-05-26 15:40] LABS: ANION GAP 20 (8-16); CARBON DIOXIDE 42 mmol/L (21-31); PREALBUMIN 19.3 mg/dl (17.6-36.0)
[2018-05-26 16:32] LABS: CHOLESTEROL 142 mg/dl (100-200)
[2018-05-26 16:32] LABS: CHOL/HDL RATIO 4.4 RATIO; HDL CHOLESTEROL 32 mg/dl (30-63); LDL CHOLESTEROL,CALCULATED 84 mg/dl; TRIGLYCERIDES 128 mg/dl (0-149)
[2018-05-26] MEDS: HYDROmorphONE 0.5 MG/0.5 ML SYG IV ×2 (16:35→20:38)
[2018-05-26] MEDS ORDERED: POTASSIUM CHLORIDE 50 ML IVPB (17:00)
[2018-05-26] MEDS: PANTOPRAZOLE 40 MG INJ IV (18:45)
[2018-05-26] MEDS: POTASSIUM CHLORIDE 100 ML IVPB ×3 (18:45→23:30)
[2018-05-26] MEDS: OLANZAPINE 5 MG TAB PO (20:44)
[2018-05-26 23:29] LABS: ADD UMIC NO; UR ASCORBIC ACID NEGATIVE (NEGATIVE); UR BILIRUBIN (Dip) NEGATIVE (NEGATIVE); UR BLOOD (Dip) NEGATIVE (NEGATIVE); UR CLARITY CLEAR (CLEAR); UR COLOR YELLOW (YELLOW); UR GLUCOSE (Dip) NEGATIVE (NEGATIVE); UR KETONES (Dip) NEGATIVE (NEGATIVE); UR LEUKOCYTE ESTERASE (Dip) NEGATIVE Leu/ul (NEGATIVE); UR NITRITE (Dip) NEGATIVE (NEGATIVE); UR SPECIFIC GRAVITY (Dip) 1.013 (1.003-1.030); UR TOTAL PROTEIN (Dip) NEGATIVE (NEGATIVE); UR UROBILINOGEN (Dip) NEGATIVE (NEGATIVE)
[2018-05-26 23:40] LABS: SODIUM,URINE RANDOM 85 mmol/L (30-90)
[2018-05-26 23:40] LABS: CREATININE,URINE RANDOM 57.65 mg/dl (20-370)
[2018-05-27] MEDS: HYDROmorphONE 0.5 MG/0.5 ML SYG IV ×6 (00:36→20:46)
[2018-05-27] MEDS: DIPHENHYDRAMINE 50 MG INJ IV ×4 (00:36→19:05)
[2018-05-27] MEDS: ACCU-CHEK XX ×6 (01:00→21:00)
[2018-05-27] MEDS: SOD CHLORIDE 0.9% 1,000 ML IV ×5 (02:50→20:49)
[2018-05-27] MEDS: HEPARIN 5,000 UNIT/0.5 ML VIAL SC ×3 (06:00→22:00)
[2018-05-27] MEDS ORDERED: PANTOPRAZOLE (EC) 40 MG TAB PO (06:00)
[2018-05-27 06:44] LABS: ADD MAN DIFF? NO
[2018-05-27 06:49] LABS: WHITE BLOOD COUNT 7.8 10^3/ul (4.8-10.8)
[2018-05-27 06:49] LABS: BASOPHIL # 0.1 10^3/ul (0.0-0.1); BASOPHILS % 0.6 % (0.0-2.0); EOSINOPHILS % 0.3 % (0.0-7.0); HEMATOCRIT 24.3 % (42.0-52.0); HEMOGLOBIN 7.9 g/dl (14.0-18.0); LYMPHOCYTES # 1.5 10^3/ul (0.8-2.9); LYMPHOCYTES % 18.8 % (15.0-51.0); MEAN CORPUSCULAR HEMOGLOBIN 32.4 pg (29.0-33.0); MEAN CORPUSCULAR HGB CONC 32.5 g/dl (32.0-37.0); MEAN CORPUSCULAR VOLUME 99.6 fl (82.0-101.0); MEAN PLATELET VOLUME 10.8 fl (7.4-10.4); MONOCYTES % 13.4 % (0.0-11.0); NEUTROPHIL # 5.2 10^3/ul (1.6-7.5); NEUTROPHILS % 66.8 % (39.0-77.0); PLATELET COUNT 339 10^3/UL (140-415); RED BLOOD COUNT 2.44 10^6/ul (4.70-6.10); RED CELL DISTRIBUTION WIDTH 16.6 % (11.5-14.5)
[2018-05-27] MEDS: PANTOPRAZOLE 40 MG INJ IV ×2 (07:05→16:58)
[2018-05-27 07:08] LABS: CHOLESTEROL 116 mg/dl (100-200); HDL CHOLESTEROL 29 mg/dl (30-63); LDL CHOLESTEROL,CALCULATED 57 mg/dl; MAGNESIUM 2.6 mg/dl (1.7-2.5); TRIGLYCERIDES 152 mg/dl (0-149)
[2018-05-27 07:08] LABS: HEMOGLOBIN A1C 5.2 % (0-5.9); PHOSPHORUS 5.3 mg/dl (2.5-4.9)
[2018-05-27 07:12] LABS: ALANINE AMINOTRANSFERASE 17 IU/L (13-69); ALBUMIN 3.1 g/dl (3.3-4.9); ALKALINE PHOSPHATASE 224 IU/L (42-121); AMYLASE 87 U/L (11-123); ASPARTATE AMINO TRANSFERASE 27 IU/L (15-46); BILIRUBIN,INDIRECT 0.4 mg/dl (0-1.1); BILIRUBIN,TOTAL 0.4 mg/dl (0.2-1.3); BLOOD UREA NITROGEN 80 mg/dl (7-20); CALCIUM 7.9 mg/dl (8.4-10.2); CHLORIDE 91 mmol/L (97-110); CREATININE 2.14 mg/dl (0.61-1.24); GLUCOSE 94 mg/dl (70-220); POTASSIUM 3.2 mmol/L (3.5-5.1); SODIUM 141 mmol/L (135-144); TOTAL PROTEIN 6.2 g/dl (6.1-8.1)
[2018-05-27 07:15] LABS: LIPASE < 10 U/L (23-300)
[2018-05-27 07:18] LABS: ANION GAP 13 (8-16)
[2018-05-27 07:25] LABS: FREE T4 (FREE THYROXINE) 0.61 ng/dl (0.79-2.35)
[2018-05-27 07:26] LABS: CARBON DIOXIDE 40 mmol/L (21-31)
[2018-05-27 07:40] LABS: THYROID STIMULATING HORMONE 0.653 MIU/L (0.465-4.680)
[2018-05-27] MEDS ORDERED: POTASSIUM CHLORIDE 100 ML IVPB (09:30)
[2018-05-27] MEDS ORDERED: FAT EMULSION 20% 250 ML IV ×2 (10:00)
[2018-05-27] MEDS: POTASSIUM CHLORIDE 50 ML IVPB ×3 (10:30→13:04)
[2018-05-27] MEDS: TPN 1,000 ML IV ×2 (11:34→22:07)
[2018-05-27] MEDS: FAT EMULSION 20% 250 ML IV (11:34)
[2018-05-27 14:47] LABS: ANION GAP 9 (8-16); BLOOD UREA NITROGEN 60 mg/dl (7-20); CARBON DIOXIDE 33 mmol/L (21-31); CHLORIDE 101 mmol/L (97-110); CREATININE 1.66 mg/dl (0.61-1.24); GLUCOSE 247 mg/dl (70-220); POTASSIUM 4.4 mmol/L (3.5-5.1); SODIUM 139 mmol/L (135-144)
[2018-05-27] MEDS: OLANZAPINE 5 MG TAB PO (20:48)
[2018-05-27] MEDS: OLANZAPINE (ODT) 5 MG TAB ODT (22:04)
[2018-05-28] MEDS: DIPHENHYDRAMINE 50 MG INJ IV ×4 (00:49→23:19)
[2018-05-28] MEDS: HYDROmorphONE 0.5 MG/0.5 ML SYG IV ×6 (00:49→21:34)
[2018-05-28] MEDS: ACCU-CHEK XX ×6 (01:00→21:12)
[2018-05-28] MEDS: SOD CHLORIDE 0.9% 1,000 ML IV (03:18)
[2018-05-28] MEDS: PANTOPRAZOLE 40 MG INJ IV ×2 (05:02→17:12)
[2018-05-28] MEDS: HEPARIN 5,000 UNIT/0.5 ML VIAL SC (05:03)
[2018-05-28 07:08] LABS: ADD MAN DIFF? NO
[2018-05-28 07:54] LABS: WHITE BLOOD COUNT 6.5 10^3/ul (4.8-10.8)
[2018-05-28 07:54] LABS: BASOPHIL # 0.1 10^3/ul (0.0-0.1); BASOPHILS % 0.9 % (0.0-2.0); EOSINOPHILS # 0.2 10^3/ul (0.0-0.5); EOSINOPHILS % 3.5 % (0.0-7.0); HEMATOCRIT 23.3 % (42.0-52.0); HEMOGLOBIN 7.2 g/dl (14.0-18.0); LYMPHOCYTES # 1.7 10^3/ul (0.8-2.9); LYMPHOCYTES % 25.6 % (15.0-51.0); MEAN CORPUSCULAR HEMOGLOBIN 32.6 pg (29.0-33.0); MEAN CORPUSCULAR HGB CONC 30.9 g/dl (32.0-37.0); MONOCYTE # 1.2 10^3/ul (0.3-0.9); MONOCYTES % 18.1 % (0.0-11.0); NEUTROPHIL # 3.4 10^3/ul (1.6-7.5); NEUTROPHILS % 51.7 % (39.0-77.0); PLATELET COUNT 340 10^3/UL (140-415); RED BLOOD COUNT 2.21 10^6/ul (4.70-6.10); RED CELL DISTRIBUTION WIDTH 16.9 % (11.5-14.5)
[2018-05-28 08:07] LABS: MEAN CORPUSCULAR VOLUME 105.4 fl (82.0-101.0)
[2018-05-28 08:11] LABS: ANION GAP 7 (8-16); BLOOD UREA NITROGEN 38 mg/dl (7-20); CALCIUM 8.2 mg/dl (8.4-10.2); CARBON DIOXIDE 25 mmol/L (21-31); CHLORIDE 117 mmol/L (97-110); CREATININE 1.13 mg/dl (0.61-1.24); GLUCOSE 78 mg/dl (70-220); POTASSIUM 4.4 mmol/L (3.5-5.1); SODIUM 145 mmol/L (135-144)
[2018-05-28 08:14] LABS: PHOSPHORUS 2.6 mg/dl (2.5-4.9)
[2018-05-28 08:14] LABS: MAGNESIUM 2.1 mg/dl (1.7-2.5)
[2018-05-28] MEDS: TPN 1,000 ML IV ×2 (10:16→20:42)
[2018-05-28] MEDS: SOD CHLORIDE 0.45% 1,000 ML IV ×3 (10:18→23:20)
[2018-05-28 11:06] LABS: HEMATOCRIT 26.3 % (42.0-52.0); HEMOGLOBIN 7.6 g/dl (14.0-18.0)
[2018-05-28] MEDS: OLANZAPINE (ODT) 5 MG TAB ODT (21:34)
[2018-05-29] MEDS: HYDROmorphONE 0.5 MG/0.5 ML SYG IV ×6 (01:25→22:22)
[2018-05-29] MEDS: ACCU-CHEK XX ×6 (01:32→21:00)
[2018-05-29] MEDS: DIPHENHYDRAMINE 50 MG INJ IV ×3 (05:25→17:52)
[2018-05-29] MEDS: SOD CHLORIDE 0.45% 1,000 ML IV ×3 (05:29→17:52)
[2018-05-29] MEDS: PANTOPRAZOLE 40 MG INJ IV ×2 (05:31→17:52)
[2018-05-29] MEDS: TPN 1,000 ML IV ×2 (05:32→17:52)
[2018-05-29 06:09] LABS: ADD MAN DIFF? NO
[2018-05-29 06:17] LABS: ABNORMAL IP MESSAGE 1; BASOPHIL # 0.1 10^3/ul (0.0-0.1); BASOPHILS % 0.8 % (0.0-2.0); EOSINOPHILS # 0.3 10^3/ul (0.0-0.5); EOSINOPHILS % 4.1 % (0.0-7.0); HEMATOCRIT 26.3 % (42.0-52.0); HEMOGLOBIN 7.6 g/dl (14.0-18.0); LYMPHOCYTES # 2.3 10^3/ul (0.8-2.9); LYMPHOCYTES % 34.5 % (15.0-51.0); MEAN CORPUSCULAR HGB CONC 28.9 g/dl (32.0-37.0); MEAN CORPUSCULAR VOLUME 114.3 fl (82.0-101.0); MEAN PLATELET VOLUME 11.7 fl (7.4-10.4); MONOCYTES % 15.1 % (0.0-11.0); NEUTROPHILS % 45.3 % (39.0-77.0); PLATELET COUNT 293 10^3/UL (140-415); POSITIVE DIFF @See below; RED CELL DISTRIBUTION WIDTH 17.4 % (11.5-14.5)
[2018-05-29 06:17] LABS: WHITE BLOOD COUNT 6.6 10^3/ul (4.8-10.8)
[2018-05-29 06:40] LABS: ANION GAP 10 (8-16); BLOOD UREA NITROGEN 21 mg/dl (7-20); CALCIUM 8.1 mg/dl (8.4-10.2); CARBON DIOXIDE 16 mmol/L (21-31); CHLORIDE 122 mmol/L (97-110); MAGNESIUM 1.1 mg/dl (1.7-2.5); PHOSPHORUS 1.6 mg/dl (2.5-4.9); SODIUM 139 mmol/L (135-144)
[2018-05-29 07:17] LABS: POTASSIUM 8.5 mmol/L (3.5-5.1)
[2018-05-29 07:18] LABS: GLUCOSE 1337 mg/dl (70-220)
[2018-05-29 08:39] LABS: ADD MAN DIFF? NO
[2018-05-29 08:45] LABS: BASOPHIL # 0.1 10^3/ul (0.0-0.1); BASOPHILS % 0.8 % (0.0-2.0); EOSINOPHILS # 0.3 10^3/ul (0.0-0.5); EOSINOPHILS % 4.7 % (0.0-7.0); HEMATOCRIT 28.5 % (42.0-52.0); HEMOGLOBIN 8.6 g/dl (14.0-18.0); LYMPHOCYTES # 1.6 10^3/ul (0.8-2.9); LYMPHOCYTES % 25.7 % (15.0-51.0); MEAN CORPUSCULAR HEMOGLOBIN 32.3 pg (29.0-33.0); MEAN CORPUSCULAR HGB CONC 30.2 g/dl (32.0-37.0); MEAN CORPUSCULAR VOLUME 107.1 fl (82.0-101.0); MONOCYTE # 1.1 10^3/ul (0.3-0.9); MONOCYTES % 17.2 % (0.0-11.0); NEUTROPHIL # 3.3 10^3/ul (1.6-7.5); NEUTROPHILS % 51.1 % (39.0-77.0); PLATELET COUNT 349 10^3/UL (140-415); RED BLOOD COUNT 2.66 10^6/ul (4.70-6.10); RED CELL DISTRIBUTION WIDTH 16.7 % (11.5-14.5)
[2018-05-29 08:45] LABS: WHITE BLOOD COUNT 6.4 10^3/ul (4.8-10.8)
[2018-05-29 09:06] LABS: ANION GAP 9 (8-16); BLOOD UREA NITROGEN 25 mg/dl (7-20); CALCIUM 8.7 mg/dl (8.4-10.2); CARBON DIOXIDE 18 mmol/L (21-31); CHLORIDE 116 mmol/L (97-110); CREATININE 0.94 mg/dl (0.61-1.24); GLUCOSE 93 mg/dl (70-220); MAGNESIUM 1.4 mg/dl (1.7-2.5); PHOSPHORUS 1.7 mg/dl (2.5-4.9); POTASSIUM 4.4 mmol/L (3.5-5.1); SODIUM 139 mmol/L (135-144)
[2018-05-29] MEDS: MAGNESIUM SULFATE 4 GM/100 ML 100 ML IVPB (12:05)
[2018-05-29] MEDS: POTASSIUM PHOSPHATE 30 MM in SOD CHLORIDE 0.9% 250 ML IV (16:25)
[2018-05-29] MEDS: OLANZAPINE (ODT) 5 MG TAB ODT (22:41)
[2018-05-30] MEDS: ACCU-CHEK XX ×6 (01:00→21:00)
[2018-05-30] MEDS: DIPHENHYDRAMINE 50 MG INJ IV ×4 (01:32→20:36)
[2018-05-30] MEDS: HYDROmorphONE 0.5 MG/0.5 ML SYG IV ×7 (02:25→23:32)
[2018-05-30] MEDS: SOD CHLORIDE 0.45% 1,000 ML IV ×4 (03:35→22:53)
[2018-05-30] MEDS: TPN 1,000 ML IV ×2 (04:31→16:08)
[2018-05-30] MEDS: PANTOPRAZOLE 40 MG INJ IV ×2 (06:23→17:31)
[2018-05-30 07:06] LABS: ADD MAN DIFF? NO
[2018-05-30 07:15] LABS: WHITE BLOOD COUNT 6.2 10^3/ul (4.8-10.8)
[2018-05-30 07:15] LABS: BASOPHIL # 0.1 10^3/ul (0.0-0.1); BASOPHILS % 0.8 % (0.0-2.0); EOSINOPHILS # 0.3 10^3/ul (0.0-0.5); EOSINOPHILS % 5.2 % (0.0-7.0); HEMATOCRIT 24.3 % (42.0-52.0); HEMOGLOBIN 7.7 g/dl (14.0-18.0); LYMPHOCYTES # 1.6 10^3/ul (0.8-2.9); LYMPHOCYTES % 25.3 % (15.0-51.0); MEAN CORPUSCULAR HEMOGLOBIN 32.9 pg (29.0-33.0); MEAN CORPUSCULAR HGB CONC 31.7 g/dl (32.0-37.0); MEAN CORPUSCULAR VOLUME 103.8 fl (82.0-101.0); MEAN PLATELET VOLUME 11.2 fl (7.4-10.4); MONOCYTES % 15.9 % (0.0-11.0); NEUTROPHIL # 3.2 10^3/ul (1.6-7.5); NEUTROPHILS % 52.5 % (39.0-77.0); PLATELET COUNT 309 10^3/UL (140-415); RED BLOOD COUNT 2.34 10^6/ul (4.70-6.10)
[2018-05-30 07:42] LABS: ANION GAP 9 (8-16); BLOOD UREA NITROGEN 25 mg/dl (7-20); CALCIUM 8.4 mg/dl (8.4-10.2); CARBON DIOXIDE 22 mmol/L (21-31); CHLORIDE 111 mmol/L (97-110); CREATININE 0.91 mg/dl (0.61-1.24); GLUCOSE 68 mg/dl (70-220); MAGNESIUM 1.9 mg/dl (1.7-2.5); PHOSPHORUS 3.2 mg/dl (2.5-4.9); POTASSIUM 3.9 mmol/L (3.5-5.1); SODIUM 138 mmol/L (135-144)
[2018-05-30] MEDS: OLANZAPINE (ODT) 5 MG TAB ODT (23:32)
[2018-05-31] MEDS: ACCU-CHEK XX ×6 (01:00→21:23)
[2018-05-31] MEDS: DIPHENHYDRAMINE 50 MG INJ IV ×4 (02:31→21:17)
[2018-05-31] MEDS: HYDROmorphONE 0.5 MG/0.5 ML SYG IV ×6 (02:32→21:17)
[2018-05-31] MEDS: TPN 1,000 ML IV ×2 (04:06→14:05)
[2018-05-31] MEDS: SOD CHLORIDE 0.45% 1,000 ML IV ×3 (04:10→18:34)
[2018-05-31 06:47] LABS: ANION GAP 9 (8-16); BLOOD UREA NITROGEN 31 mg/dl (7-20); CALCIUM 8.7 mg/dl (8.4-10.2); CARBON DIOXIDE 30 mmol/L (21-31); CHLORIDE 106 mmol/L (97-110); GLUCOSE 67 mg/dl (70-220); MAGNESIUM 1.7 mg/dl (1.7-2.5); PHOSPHORUS 3.2 mg/dl (2.5-4.9); POTASSIUM 3.7 mmol/L (3.5-5.1); SODIUM 141 mmol/L (135-144)
[2018-05-31] MEDS: PANTOPRAZOLE 40 MG INJ IV ×2 (08:43→18:33)
[2018-05-31] MEDS: OLANZAPINE (ODT) 5 MG TAB ODT (21:21)
[2018-06-01] MEDS: TPN 1,000 ML IV ×3 (00:25→23:58)
[2018-06-01] MEDS: SOD CHLORIDE 0.45% 1,000 ML IV ×4 (00:25→21:08)
[2018-06-01] MEDS: HYDROmorphONE 0.5 MG/0.5 ML SYG IV ×8 (00:26→21:10)
[2018-06-01] MEDS: ACCU-CHEK XX ×6 (00:37→21:10)
[2018-06-01] MEDS: DIPHENHYDRAMINE 50 MG INJ IV ×4 (03:25→21:08)
[2018-06-01] MEDS: PANTOPRAZOLE 40 MG INJ IV ×2 (05:17→18:04)
[2018-06-01 08:20] LABS: ANION GAP 11 (8-16); BLOOD UREA NITROGEN 32 mg/dl (7-20); CALCIUM 8.5 mg/dl (8.4-10.2); CARBON DIOXIDE 29 mmol/L (21-31); CHLORIDE 104 mmol/L (97-110); CREATININE 0.91 mg/dl (0.61-1.24); GLUCOSE 60 mg/dl (70-220); MAGNESIUM 1.7 mg/dl (1.7-2.5); PHOSPHORUS 3.3 mg/dl (2.5-4.9); SODIUM 140 mmol/L (135-144)
[2018-06-01] MEDS: FAT EMULSION 20% 250 ML IV (17:10)
[2018-06-01] MEDS: OLANZAPINE (ODT) 5 MG TAB ODT (21:09)
[2018-06-02] MEDS: ACCU-CHEK XX ×4 (00:14→12:40)
[2018-06-02] MEDS: HYDROmorphONE 0.5 MG/0.5 ML SYG IV ×5 (00:17→12:37)
[2018-06-02] MEDS: DIPHENHYDRAMINE 50 MG INJ IV ×2 (03:08→09:33)
[2018-06-02] MEDS: SOD CHLORIDE 0.45% 1,000 ML IV ×3 (03:09→12:48)
[2018-06-02] MEDS: PANTOPRAZOLE 40 MG INJ IV (06:19)
[2018-06-02 08:04] LABS: ANION GAP 10 (8-16); BLOOD UREA NITROGEN 30 mg/dl (7-20); CALCIUM 8.5 mg/dl (8.4-10.2); CARBON DIOXIDE 24 mmol/L (21-31); CHLORIDE 108 mmol/L (97-110); CREATININE 0.89 mg/dl (0.61-1.24); GLUCOSE 69 mg/dl (70-220); MAGNESIUM 1.8 mg/dl (1.7-2.5); PHOSPHORUS 3.4 mg/dl (2.5-4.9); POTASSIUM 4.2 mmol/L (3.5-5.1); SODIUM 138 mmol/L (135-144)
[2018-06-02 08:05] LABS: PREALBUMIN 22.6 mg/dl (17.6-36.0)
[2018-06-02] MEDS: TPN 1,000 ML IV (09:33)
[2018-06-11 14:04] LABS: CREATININE, RANDOM URINE 67 mg/dL (20-370); MICROALBUMIN 0.6 mg/dL; MICROALBUMIN/CREATININE RATIO 9 (<30)
== END 2018-06-02 14:45 | DRG 683 ==
LOC: E/R 10:13 → TEL 12:29
DX: N17.9 Acute kidney failure, unspecified (principal); E87.3 Alkalosis; K91.2 Postsurgical malabsorption, not elsewhere classified; E87.0 Hyperosmolality and hypernatremia; D64.9 Anemia, unspecified; I95.89 Other hypotension; E86.0 Dehydration; D63.8 Anemia in other chronic diseases classified elsewhere; I95.1 Orthostatic hypotension; E87.6 Hypokalemia
CPT/HCPCS: 36415; 71045; 74176; 80048; 80053; 80061; 81003; 82043; 82150; 82962; 83036; 83605; 83690; 83735; 84100; 84134; 84155; 84300; 84439; 84443; 84478; 85014; 85018; 85025; 87040; 87086; 93005; 96365; 96375; 99285-25